=== PATIENT | female | born 1945 | race Caucasian/White ===

== ENCOUNTER → 2021-03-16 13:54 | Outpatient (CLI) | payer MEDICARE, SELFPAY ==
--- NOTE | ~2021-03-16 | MM_ITS ---
EXAMINATION: MM screening [facility] BI w marcus HISTORY: Screening TECHNIQUE: Craniocaudal and mediolateral oblique 3-D tomosynthesis images were obtained and synthetic 2-D images were generated. CAD analysis was submitted and interpreted. COMPARISON: The Comparison to multiple prior studies sequentially, with oldest reviewed study dated 07/15/2014. BREAST PARENCHYMAL COMPOSITION: There are scattered areas of fibroglandular density. FINDINGS: There is no evidence of suspicious mass, calcification, or architectural distortion to sugg est malignancy in either breast. There has been no suspicious interval change. IMPRESSION: 1. No mammographic evidence of malignancy. 2. Recommend routine screening mammography in one year. BI-RADS Category 1: Negative Reviewed, dictated and finalized at location A.
== END ==
PROVIDERS: PCP Emergency Medicine; Visit Provider Emergency Medicine
DX: Z12.31 Encounter for screening mammogram for malignant neoplasm of breast (principal)
CPT/HCPCS: 77063; 77067

== ENCOUNTER 2022-02-10 16:23 | Inpatient (IN) | payer MEDICARE, SELFPAY ==
[2022-02-10] VITALS (7 sets, daily range): BP systolic 102–122; BP diastolic 55–65; PULSE 69–98; RESP 14–22; TEMP 36.6–36.8; O2SAT 94–100; BMI 37.5
--- NOTE | ~2022-02-10 | CT_ITS ---
EXAMINATION: CT abdomen pelvis w con DATE: 02/10/2022 19:55 INDICATION: LLQ pain TECHNIQUE: Computed tomography (CT) of the abdomen and pelvis was performed with 100 mL Omnipaque-350 intravenous contrast. Automated exposure control and iterative reconstruction technique were employe d. The dose-length product was 1273.29 mGy-cm. COMPARISON: None. FINDINGS: Lower thorax: Coronary artery calcifications. Small hiatal hernia. Liver: Hepatomegaly Biliary/Gallbladder: Gallbladder is normal. No bile duct dilation. Pancreas: No mass or duct dilation. Spleen: Normal. Adrenals:No mass. Kidneys: No mass, stone, or hydronephrosis. GI tract: No small or large bowel dilation. Dilated, discontiguous, inflamed appendix with a surround ing fluid and gas collection measuring 4.7 x 3.4 cm, and contiguous with a much larger pelvic abscess . Diverticulosis without diverticulitis. Mesentery/Peritoneum: No ascites, mass, or free air. Retroperitoneum: No mass. Pelvis: Uterus not visualized, likely surgically absent. 14.1 x 9.3 x 10.9 cm irregular, rim-enhancin g fluid and gas collection in the deep pelvis, in the region of the pouch of Hugh, extending anter iorly, superior to the bladder. Bladder wall thickening and inflammation, likely reactive. The pelvic collection is in communication with the periappendiceal collection. Soft Tissues: Soft tissues and body wall unremarkable. Bones: No acute osseous finding. IMPRESSION: Acute complicated appendicitis with evidence of rupture, a 4.7 cm periappendiceal abscess, and extens ion into a 14.1 cm pelvic abscess. These collections may be amenable to percutaneous drainage. Reviewed, dictated and finalized at location K. IMPRESSION: Acute complicated appendicitis with evidence of rupture, a 4.7 cm periappendice al abscess, and extension into a 14.1 cm pelvic abscess. These collections may be amenable to percutaneous drainage.
--- NOTE | ~2022-02-10 | CT_ITS ---
EXAMINATION: CT guide absc cath placement DATE: 02/11/2022 13:36 INDICATION: Pelvic abscess. TECHNIQUE: The procedure including the risks, benefits, and alternatives was discussed with the patie nt. Risks discussed included bleeding and infection. The patient understood the risks and benefits an d agreed to proceed. The skin overlying the abdomen was prepped and draped in usual sterile fashion. Anesthetic was administered with 1% lidocaine subcutaneously. An 18 gauge trochar needle was inserte d into the pelvic abscess with CT guidance. The needle was exchanged over a wire for 6 Kosovan, 8 Fren ch, and 9 Kosovan dilators and then for an 8.5 Kosovan pigtail catheter. The catheter was stitched to t he skin, and a sterile dressing was applied. The mA was adjusted according to patient size. Iterative reconstruction technique was employed. The dose-length product was 199.36 mGy-cm. There were no imme diate complications. FINDINGS: CT images demonstrate the catheter within the fluid collection. 8 mL fluid was aspirated fo r testing. IMPRESSION: 1. Successful CT-guided pelvic abscess drainage. 2. 8 mL opaque, green-charles fluid was sent for aerobic and anaerobic cultures. Reviewed, dictated and finalized at location A.
--- NOTE | ~2022-02-10 | US_ITS ---
EXAMINATION: US renal BI DATE: 02/11/2022 10:56 INDICATION: Acute renal insufficiency TECHNIQUE: Multiple ultrasound grayscale images of the kidneys were obtained. COMPARISON: None. FINDINGS: The right kidney measures 11.0 x 4.2 x 6.1 cm. The left kidney measures 11.1 x 6.1 x 5.4 cm. The kidn eys demonstrate normal echogenicity. There is no hydronephrosis in either kidney. No stones identifi ed. The bladder is decompressed around a Hernandez catheter which limits evaluation.. IMPRESSION: 1. Normal kidneys without hydronephrosis. Reviewed, dictated and finalized at location A.
--- NOTE | 2022-02-10 16:31 | ECG_ITS ---
Measurements Intervals [place] Rate: 90 P: 56 MO: 144 QRS: 14 QRSD: 98 T: 39 QT: 390 QTc: 478 Interpretive Statements SINUS RHYTHM CONSIDER INFERIOR INFARCT, AGE INDETERMINATE BASELINE ARTIFACT- I, II, III, AVR, AVL, AVF, V5 ABNORMAL ECG NO PREVIOUS ECG AVAILABLE FOR COMPARISON Electronically Signed On 02-11-2022 7:01:38 CDT by Bertrand Hudson D.O.
[2022-02-10 16:39] LABS: Glucose Point of Care 156 mg/dl (65-105)
[2022-02-10 16:49] LABS: Basophils Absolute Auto 0.2 K/mm3 (0.0-0.1); Basophils Percent Auto 0.5 % (0.2-1.2); Eosinophils Percent Auto 0.1 % (0-4.4); Hematocrit 35.1 % (37.0-47.0); Hemoglobin 12.1 g/dL (12.0-15.0); Immature Granulocyte Absolute 0.65 K/mm3 (0.00-0.031); Immature Granulocyte Percent A 1.8 % (0-0.5); Lymphocytes Absolute Auto 1.66 K/mm3 (0.9-3.2); Lymphocytes Percent Auto 4.5 % (18.3-44.2); Mean Corpuscular HGB Conc 34.5 g/dl (32-36); Mean Corpuscular Hemoglobin 30.7 pg (26-34); Mean Corpuscular Volume 89.1 fl (80-100); Mean Platelet Volume 9.1 fl (7.4-10.4); Monocytes Absolute Auto 1.9 K/mm3 (0.1-0.6); Monocytes Percent Auto 5.2 % (2.6-8.5); Neutrophils Absolute Auto 32.5 K/mm3 (1.3-6.7); Neutrophils Percent Auto 87.9 % (45.5-73.1); Platelet Count Result 464 k/mm3 (150-375); Red Blood Count 3.94 M/mm3 (4.2-5.4); Red Cell Distribution Width 13.8 % (11.5-14.5); White Blood Count 36.9 K/mm3 (4.5-10.0)
[2022-02-10 17:30] LABS: Alanine Aminotransferase 53 U/L (6-35); Albumin Level 3.5 g/dL (3.5-5.1); Alkaline Phosphatase 160 U/L (38-126); Anion Gap 15 mmol/L (8-16); Aspartate Amino Transferase 44 U/L (14-36); Bilirubin,Total 0.8 mg/dL (0.2-1.3); Blood Urea Nitrogen 22 mg/dL (7-17); Calcium 8.5 mg/dL (8.4-10.2); Carbon Dioxide 24 mmol/L (22-30); Chloride 89 mmol/L (98-107); Estimated CRCL calculation 37 ml/min; Estimated Glomerular Filt Rate 37; Glucose 164 mg/dL (65-110); Lipase 117 U/L (23-300); Potassium 2.3 mmol/L (3.4-5.0); Sodium 128 mmol/L (137-145)
[2022-02-10] MEDS: SODIUM CHLORIDE 0.9% IV 1,000 ML 999 ML IV CONT (18:38)
[2022-02-10] MEDS: ONDANSETRON INJ 4 MG/2 ML VIAL IV PUSH (18:40)
[2022-02-10] MEDS: POTASSIUM CHLORIDE INJ 40 MEQ in SODIUM CHLORIDE 0.9% IV 500 ML 130 MEQ IVPB (18:47)
[2022-02-10 18:57] LABS: Appearance Urine Clear (Clear); Bilirubin Urine 1+ (Negative); Blood Urine Negative (Negative); Color Urine Yellow (Yellow); Glucose Urine UA Negative (Negative); Ketones Urine Negative (Negative); Leukocyte Esterase Ur Negative LEU/UL (Negative); Nitrate Urine Negative (Negative); Protein Urine 1+ mg/dL (Negative); pH Urine 5.5 (5.0-9.0)
[2022-02-10 19:02] LABS: Add Urine Microscopic? YES; RBC Urine 0-2 /hpf (0-2); Squamous Epithelial Cell Urine Occasional /hpf (Few)
--- NOTE | 2022-02-10 19:19 | ED.GENADULT ---
HPI - General Adult General Chief complaint: Unspecified Stated complaint: sick for 10 day Time Seen by Provider: 02/10/22 17:44 History of Present Illness HPI narrative: Patient is a 76-year-old female who presents ER with reports of feeling sick over the last 10 days. She has been having diarrhea daily and small volumes multiple times. She is also been having vomiting and most recently just dry heaving. She has not been able to eat anything over the last 10 days until today where she is able to keep down a small amount of food. She is reporting left lower quadrant pain. Subjective fevers and chills. No alleviating factors. Related Data Home Medications Medication Instructions Recorded Confirmed aspirin 81 mg tablet 81 mg PO DAILY 04/22/19 11/02/21 Allergies Allergy/AdvReac Type Severity Reaction Status Date / Time Penicillins Allergy Unknown Rash Verified 09/25/21 11:32 Review of Systems Review of Systems: All systems reviewed & are unremarkable except as noted in HPI and below Constitutional: Constitutional: Reports chills and Reports fatigue Cardiovascular: Cardiovascular: Denies chest pain, Denies radiating jaw, neck or arm pain and Denies palpitations Respiratory: Respiratory: Denies cough, Denies dyspnea and Denies wheezing Gastrointestinal: Gastrointestinal: Reports abdominal pain, Reports diarrhea, Reports nausea, Reports vomiting and Denies hematemesis Genitourinary: Genitourinary: Denies nocturia, Denies dysuria and Denies flank pain PMFSH Past Medical History Medical History GERD (gastroesophageal reflux disease) Gout HLD (hyperlipidemia) Vitamin D deficiency disease Surgical History Surgical History History of bladder surgery History of vein stripping Tie Up Family History Family History Mother Family history of malignant neoplasm, Onset Age: 62 Father Carcinoma of colon Social History Social History Smoking status: Current every day smoker Alcohol intake: current Exam Narrative: GENERAL: Uncomfortable-appearing, well-nourished, and in no acute distress. HEAD: Normocephalic, atraumatic. ENT: Mucous membranes moist. CHEST: Clear to auscultation. No respiratory distress. HEART: Regular rate and rhythm. Normal peripheral pulses. ABDOMEN: Soft, TTP BLQ with guarding, nondistended. EXTREMITIES: Normal range of motion. No edema. SKIN: Warm, dry, no rash. NEURO: Alert and oriented x3. PSYCH: Normal mood and affect. Course Course Emergency Course: Patient informed of results. Dr. Jones consulted. Recommends Levaquin and Flagyl as well as admission to ICU. Discussed case with Dr. Wong who is excepted the patient. Patient also accepted by hospitalist service. Vital Signs Vital signs: Vital Signs Temperature 98.1 F 02/10/22 16:25 Pulse Rate 98 02/10/22 16:25 Respiratory Rate 14 02/10/22 16:25 Blood Pressure 102/56 L 02/10/22 16:25 Pulse Oximetry 99 02/10/22 16:25 Oxygen Delivery Room Air 02/10/22 16:25 Temperature 98.2 F 02/10/22 21:42 Pulse Rate 77 02/10/22 21:42 Respiratory Rate 22 H 02/10/22 21:42 Blood Pressure 120/56 L 02/10/22 21:42 Pulse Oximetry 100 02/10/22 21:42 Oxygen Delivery Room Air 02/10/22 16:25 Medical Decision Making Vital Signs Vital Signs: Vital Signs Temperature 98.1 F 02/10/22 16:25 Pulse Rate 98 02/10/22 16:25 Respiratory Rate 14 02/10/22 16:25 Blood Pressure 102/56 L 02/10/22 16:25 Pulse Oximetry 99 02/10/22 16:25 Oxygen Delivery Room Air 02/10/22 16:25 Temperature 98.2 F 02/10/22 21:42 Pulse Rate 77 02/10/22 21:42 Respiratory Rate 22 H 02/10/22 21:42 Blood Pressure 120/56 L 02/10/22 21:42 Pulse Oximetry
--- NOTE | 2022-02-10 19:53 | PC.NURSE ---
Report received from PRESLEY Gold. Assumed care of patient at this time.
[2022-02-10 19:55] LABS: Lactic Acid Reflex 1.4 mmol/L (0.7-2.0)
--- NOTE | 2022-02-10 21:12 | PM.IMHP ---
H&P: HPI History of Present Illness Date/Time: 02/10/22 21:12 Chief Complaint: nausea and vomiting Narrative: This is a 76-year-old female with past medical history significant for gastroesophageal reflux disease, gout, dyslipidemia, asthma. Patient presents to the emergency room was brought by her daughter due to several days of nausea vomiting abdominal pain unable to keep anything down had some diarrhea as well had subjective fevers, chills, altered mental status, drowsiness, lethargy, denies any cough, sputum production, shortness of breath. preliminary workup was significant for: CT abdomen and pelvis was reported as: IMPRESSION: Acute complicated appendicitis with evidence of rupture, a 4.7 cm periappendiceal abscess, and extension into a 14.1 cm pelvic abscess. These collections may be amenable to percutaneous drainage. a CBC showed WBC 36,000 a chemistry panel showed a sodium of 128, potassium 2.3, chloride 89, creatinine 1.4 Review of Systems Review of Systems: abdominal pain, nausea, vomiting, intermittent diarrhea, drowsiness, fatigue, subjective fevers, chills. Constitutional: Constitutional: Reports chills, Reports fever(s), Reports lethargy, Reports malaise and Reports poor appetite Eyes: Eyes: Denies change in vision ENT: Denies dysphagia, Denies vertigo and Denies odynophagia Cardiovascular: Cardiovascular: Denies chest pain, Denies irregular heart rhythm, Denies lightheadedness, Denies palpitations and Denies dyspnea on exertion Respiratory: Respiratory: Denies change in phlegm color, Denies chest congestion, Denies cough, Denies excessive phlegm production and Denies dyspnea Gastrointestinal: Gastrointestinal: Reports abdominal pain, Denies melena, Denies hematochezia, Denies coffee ground emesis, Denies dyspepsia, Denies heartburn, Reports diarrhea, Reports nausea, Reports vomiting and Denies hematemesis Genitourinary: Genitourinary: Denies dysuria Musculoskeletal: Musculoskeletal: Denies myalgias, Denies joint swelling, Denies limited range of motion, Denies muscle weakness and Denies neck pain Integumentary/Breasts: Skin/Breast: Denies rash Neurologic: Denies vertigo, Denies dizziness, Denies focal weakness and Denies Sensory deficit (Neuro) Psychiatric: Psychiatric: Reports no additional psychiatric complaints and Reports as per HPI Endocrine: Endocrine: Denies cold intolerance, Denies flushing, Denies heat intolerance, Denies polyphagia, Denies polydipsia and Denies palpitations Hematologic/Lymphatic: Hematologic/Lymphatic: Reports no additional hematologic/lymphatic complaints and Reports as per HPI Allergic/Immunologic: Allergic/Immunologic: Reports no additional allergic/immunologic complaints and Reports as per HPI PMFSH Past Medical History Medical History GERD (gastroesophageal reflux disease) Gout HLD (hyperlipidemia) Vitamin D deficiency disease Surgical History Surgical History History of bladder surgery History of vein stripping Tie Up Family History Family History Mother Family history of malignant neoplasm, Onset Age: 62 Father Carcinoma of colon Social History Social History Smoking packs per day: 0.5 Smoking cigarettes per day: 10.0 Years smoked: 50 Smoking pack-years: 25.00 Smoking status: Former smoker Tobacco type: cigarettes Alcohol intake: current Drinks per week: 2 Substance use: never Spiritual care concerns: No Meds Home Medications and Allergies Home Medications Medication Instructions Recorded Confirmed Type aspirin 81 mg tablet 81 mg PO DAILY 04/22/19 02/10/22 History diclofenac sodium 75 mg 75 mg PO BID #60 tabs 06/25/21 02/10/22 Rx tablet,delayed release lisino
[2022-02-10] MEDS: metroNIDAZOLE 500 MG/ISO 100ML 500 MG/100 ML BAG 100 MG IVPB (23:13)
[2022-02-11] VITALS (12 sets, daily range): BP systolic 98–140; BP diastolic 44–69; PULSE 78–99; RESP 14–26; TEMP 36.6–37.2; O2SAT 98–100
--- NOTE | 2022-02-11 00:04 | PC.NURSE ---
This patient, Gogo Dickens, was admitted to Intensive Care Unit-8 at 2205 02/10/22. Patient/family oriented to hospital policies and general routines including ID bracelet, bed and alarms, visiting hours, pain management, procedures, bathroom and other care routines, personal items, smoking policy, room service/diet, and visiting hours. Information on how to activate the Rapid Response Team has been discussed. Patient/Family are encouraged to report perceived risks to care and to ask questions if they do not understand what they are told or what they should do.
[2022-02-11] MEDS: AZTREONAM 2 GM in SODIUM CHLORIDE 0.9% IV 100 ML 200 ML IVPB ×3 (04:00→20:24)
[2022-02-11 05:15] LABS: Basophils Absolute Auto 0.1 K/mm3 (0.0-0.1); Basophils Percent Auto 0.4 % (0.2-1.2); Eosinophils Percent Auto 0.1 % (0-4.4); Hemoglobin 9.1 g/dL (12.0-15.0); Immature Granulocyte Absolute 0.56 K/mm3 (0.00-0.031); Immature Granulocyte Percent A 2.2 % (0-0.5); Lymphocytes Absolute Auto 1.19 K/mm3 (0.9-3.2); Lymphocytes Percent Auto 4.7 % (18.3-44.2); Mean Corpuscular HGB Conc 33.7 g/dl (32-36); Mean Corpuscular Hemoglobin 30.8 pg (26-34); Mean Corpuscular Volume 91.5 fl (80-100); Mean Platelet Volume 9.4 fl (7.4-10.4); Monocytes Absolute Auto 1.5 K/mm3 (0.1-0.6); Monocytes Percent Auto 5.8 % (2.6-8.5); Neutrophils Absolute Auto 21.8 K/mm3 (1.3-6.7); Neutrophils Percent Auto 86.8 % (45.5-73.1); Platelet Count Result 308 k/mm3 (150-375); Red Blood Count 2.95 M/mm3 (4.2-5.4); White Blood Count 25.1 K/mm3 (4.5-10.0)
[2022-02-11 05:31] LABS: Anion Gap 9 mmol/L (8-16); Blood Urea Nitrogen 21 mg/dL (7-17); Calcium 6.8 mg/dL (8.4-10.2); Carbon Dioxide 22 mmol/L (22-30); Chloride 99 mmol/L (98-107); Estimated CRCL calculation 47 ml/min; Estimated Glomerular Filt Rate 49; Glucose 104 mg/dL (65-110); Potassium 2.5 mmol/L (3.4-5.0); Sodium 130 mmol/L (137-145)
[2022-02-11] MEDS: POTASSIUM CHLORIDE INJ 40 MEQ in SODIUM CHLORIDE 0.9% IV 500 ML 130 MEQ IVPB (06:53)
[2022-02-11] MEDS: POTASSIUM CHLORIDE 20 MEQ PACKET (FOR LIQUID) 40 MEQ PO (08:59)
--- NOTE | 2022-02-11 09:34 | WPDCNINT ---
Assessment and Plan Assessment and plan (1) Sepsis: Code(s): A41.9 - Sepsis, unspecified organism Status: Acute Assessment and Plan: secondary to acute complicated appendicitis with rupture and pelvic abscess blood culture sent and are pending patient is on aztreonam and I will add metronidazole to cover for anaerobic coverage general surgery has been consulted and they have requested percutaneous drainage of abscess at this time for which patient is scheduled her lactic acid was normal and she has not required any vasopressors at this time (2) Acute appendicitis with perforation, localized peritonitis, and abscess: Code(s): K35.33 - Acute appendicitis with perforation and localized peritonitis, with abscess Status: Acute Assessment and Plan: see above (3) Acute appendicitis with rupture: Code(s): K35.32 - Acute appendicitis with perforation and localized peritonitis, without abscess Status: Deleted Assessment and Plan: see above (4) FERNANDA (acute kidney injury): Code(s): N17.9 - Acute kidney failure, unspecified Status: Acute Assessment and Plan: likely secondary to sepsis and dehydration patient has received IV fluid bolus and is on IV fluids creatinine is improving and is down to 1.1 today check CK level check UA urine electrolytes CT scan does not show any obstruction or hydronephrosis monitor urine output electrolytes and creatinine (5) Acute hypokalemia: Code(s): E87.6 - Hypokalemia Status: Acute Assessment and Plan: patient is receiving replacement at this time. will repeat BMP post placement to check levels (6) GERD (gastroesophageal reflux disease): Qualifiers: Esophagitis presence: without esophagitis Qualified Code(s): K21.9 - Gastro-esophageal reflux disease without esophagitis Code(s): K21.9 - Gastro-esophageal reflux disease without esophagitis Status: Acute Assessment and Plan: continue PPI Plan DVT prophylaxis - will start Lovenox from tomorrow as patient is going for a drain placement Nutrition - NPO except meds Code Status - Full Code Spoke to patient and patient's at bedside and updated them with current status and current treatment plan. I answered all their questions. 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 Patient states the symptoms started around 1 week ago when she started having nausea followed by vomiting. She did not see any blood in her vomitus. 1-2 days later she started having abdominal pain mostly in the lower abdomen. She states pain was 10/10 dull intermittent with no radiation. Pain felt worse with movement. She initially noted stop thinking that it was a UTI. She also started having diarrhea with loose bowel movements. No melena or hematochezia. She had fevers and chills. Patient presented to ER and was diagnosed with sepsis FERNANDA and on CT scan was found to be having a perforated appendix with abscess. Patient was admitted to ICU and started on IV antibiotics, fluids and general surgery was consulted. Patient at this time states that her pain is better and is rated at 3/10, dull, no radiation, worse with deep breathing and movement. Review of systems is also positive for dry mouth, heartburn. All other systems were reviewed and were negative Review of Systems Review of Systems: All systems reviewed & are unremarkable except as noted in HPI and below ( HPI) PMFSH Past Medical History Medical History GERD (gastroesophageal reflux disease) Gout History of TIA (transient ischemic attack) x 2 HLD (hyperlipidemia) Overactive bladder Vitamin D deficiency disease
[2022-02-11] MEDS: LIDOCAINE HCL 1% PF INJ 5 ML VIAL INFILTRATE (09:45)
[2022-02-11] MEDS: CALCIUM GLUC 2,000 MG/NS 100ML 2,000 MG/100 ML BAG 100 MG IVPB (11:03)
[2022-02-11] MEDS: metroNIDAZOLE 500 MG/ISO 100ML 500 MG/100 ML BAG 100 MG IVPB ×3 (11:04→20:24)
[2022-02-11 11:11] LABS: Creatine Kinase 38 U/L (30-135)
--- NOTE | 2022-02-11 11:14 | PM.CNGS ---
Assessment and Plan Assessment and plan (1) Acute appendicitis with perforation, localized peritonitis, and abscess: Code(s): K35.33 - Acute appendicitis with perforation and localized peritonitis, with abscess Status: Acute Assessment and Plan: CT scan reviewed and discussed with the patient and her in detail. There is evidence of appendicitis with perforation and there is a periappendiceal abscess and larger pelvic abscess. These fluid collections appear to be communicating and amenable to percutaneous drainage. Continue IV antibiotics and will order percutaneous drainage of the abscess in Radiology today. Will add coags to her morning labs. (2) Sepsis: Code(s): A41.9 - Sepsis, unspecified organism Status: Acute Assessment and Plan: Secondary to perforated appendicitis with intra-abdominal abscess. Blood cultures pending. Lactic acid normal. BP has been stable thus far without vasopressors. Proceed with IR percutaneous drainage of abscess. Continue broad-spectrum IV antibiotics, IV fluid resuscitation, and monitoring. WBC trending down this morning. (3) FERNANDA (acute kidney injury): Code(s): N17.9 - Acute kidney failure, unspecified Status: Acute Assessment and Plan: Likely multifactorial related to dehydration and sepsis. CK normal. Continue IV fluid hydration, monitor labs. Creatinine improved today to 1.1 (4) Acute hypokalemia: Code(s): E87.6 - Hypokalemia Status: Acute Assessment and Plan: Potassium 2.5 this morning. Replacement with oral and IV KCL this morning. Continue to monitor labs and replace as needed. Currently on telemtry in ICU. (5) Acute hyponatremia: Code(s): E87.1 - Hypo-osmolality and hyponatremia Status: Acute Assessment and Plan: Continue IV fluids. Monitor labs. (6) Obesity (BMI 30-39.9): Code(s): E66.9 - Obesity, unspecified Status: Acute Plan I have discussed the patient's case and plan of care with Dr. Post. Thank you for allowing us to see the patient in consultation and we will continue to follow along with you. History of Present Illness Consult details Consult date: 02/11/22 Reason for consult: other (Perforated appendicitis with pelvic and periappendiceal abscess) Requesting physician: Clifton Post MD Narrative: This is a 76-year-old who presented to the ER with complaints of lower abdominal pain, vomiting, and generalized weakness. She reports an onset nausea, vomiting, and lower abdominal pain about 10-11 days ago. She cannot recall if she noticed abdominal pain prior to vomiting, but attributed her lower abdominal pain to muscle soreness from retching. She overall felt unwell and was unable to keep any food or liquids down for a few days. She developed chills and a fever. Her reports a temperature of a 101? F at home off and on for about 3 days. At first, she thought she may have COVID and took a test, which was negative. She continued to have abdominal pain, but felt this was slowly improving. Her abdominal pain was located across the lower abdomen and was aggravated with sitting up or any movement. Last week, she had a poor appetite and still was not taking in any solid foods, but was able to tolerate liquids. She felt like she was improving daily. Until, the last 3 days she had progressive generalized weakness and continued to not tolerate any foods. Yesterday, she slept most of the day in either the recliner or her bed. No recent fevers. She reports lots of flatus and multiple loose stools over the past few days, but attributed this to eating a liquid diet for almost a week. Due to the progressive weakness and persistent symptoms, she presented to the ER. CT scan of the abdomen and pelvis showed acute complicated appendicitis with evidence of rupture, a 4.7 cm periappendiceal abscess, and extension into a 14.1 cm pelvic abscess. Labs showed a white blood cell count of
[2022-02-11 11:25] LABS: INR 1.4; Partial Thromboplastin Time 28.3 SECONDS (22.3-36.8); Prothrombin Time 16.8 Seconds (11.1-14.7)
[2022-02-11] MEDS: PANTOPRAZOLE SODIUM IV 40 MG VIAL IV PUSH (12:12)
[2022-02-11 12:39] LABS: Sodium Urine Random 53 meq/L
--- NOTE | 2022-02-11 13:31 | PC.NURSE ---
Patient left floor with staff to CT. Alert and oriented x 4. Resp even and non-labored.
[2022-02-11] MEDS: CENTRAL LINE FLUSH 10 ML IV PUSH ×2 (13:55→20:25)
[2022-02-11] MEDS: ENOXAPARIN 40 MG/0.4 ML SYRINGE SUB-Q (14:30)
[2022-02-11 14:39] LABS: Anion Gap 11 mmol/L (8-16); Blood Urea Nitrogen 17 mg/dL (7-17); Calcium 7.8 mg/dL (8.4-10.2); Carbon Dioxide 21 mmol/L (22-30); Chloride 102 mmol/L (98-107); Estimated CRCL calculation 52 ml/min; Estimated Glomerular Filt Rate 54; Glucose 103 mg/dL (65-110); Potassium 3.2 mmol/L (3.4-5.0); Sodium 134 mmol/L (137-145)
[2022-02-11 15:03] LABS: Toxigenic C. Diff NEGATIVE (NEGATIVE)
[2022-02-11] MEDS: KCL 40 MEQ/WATER 100 ML 100 ML 25 ML IVPB (15:16)
[2022-02-11] MEDS: KCL 20 MEQ/0.45% NS 1,000 ML 100 ML IV CONT (15:29)
--- NOTE | 2022-02-11 16:54 | PM.IMPN ---
Progress Note: A&P Assessment and Plan (1) Sepsis: Code(s): A41.9 - Sepsis, unspecified organism Status: Acute Assessment and Plan: secondary to acute complicated appendicitis with rupture and pelvic abscess blood culture sent and are pending patient is on aztreonam and Flagyl general surgery has been consulted and they have requested percutaneous drainage of abscess at this time for which patient is scheduled her lactic acid was normal and she has not required any vasopressors at this time (2) Acute appendicitis with perforation, localized peritonitis, and abscess: Code(s): K35.33 - Acute appendicitis with perforation and localized peritonitis, with abscess Status: Acute Assessment and Plan: see above (3) Acute appendicitis with rupture: Code(s): K35.32 - Acute appendicitis with perforation and localized peritonitis, without abscess Status: Deleted Assessment and Plan: see above (4) FERNANDA (acute kidney injury): Code(s): N17.9 - Acute kidney failure, unspecified Status: Acute Assessment and Plan: creatinine 1.4 on admission likely secondary to sepsis and dehydration Improved with IV hydration CT scan does not show any obstruction or hydronephrosis CK normal (5) Acute hypokalemia: Code(s): E87.6 - Hypokalemia Status: Acute Assessment and Plan: patient is receiving replacement at this time. repeat recheck and monitor (6) GERD (gastroesophageal reflux disease): Qualifiers: Esophagitis presence: without esophagitis Qualified Code(s): K21.9 - Gastro-esophageal reflux disease without esophagitis Code(s): K21.9 - Gastro-esophageal reflux disease without esophagitis Status: Acute Assessment and Plan: continue PPI (7) Abscess of pelvis: Status: Acute Plan DVT prophylaxis - Lovenox in a.m. Nutrition - NPO except meds Code Status - Full Code Subjective Date/time seen: 02/11/22 16:54 Interval history: HPI: This is a 76-year-old female with past medical history significant for gastroesophageal reflux disease, gout, dyslipidemia, asthma.? Patient presents to the emergency room was brought by her daughter due to several days of nausea vomiting abdominal pain unable to keep anything down had some diarrhea as well had? subjective fevers, chills,? altered mental status, drowsiness, lethargy,? denies any cough, sputum production, shortness of breath. preliminary workup was significant for: CT abdomen and pelvis was reported as: IMPRESSION: Acute complicated appendicitis with evidence of rupture, a 4.7 cm periappendiceal abscess, and extension into a 14.1 cm pelvic abscess. These collections may be amenable to percutaneous drainage. ?a CBC showed WBC 36,000 ?a chemistry panel showed a sodium of 128, potassium 2.3, chloride 89, creatinine 1.4 02/11/2022 received her drained this afternoon. Abdomen is sore no nausea vomiting remains afebrile Review of Systems Review of Systems: All systems reviewed & are unremarkable except as noted in HPI and below ( HPI) Exam Narrative: General: Pt is alert awake and in NAD Lungs/Chest: Trachea central Clear BS B/L, No crackles or wheezing. Cardiac: RRR. Normal S1 S2. No murmurs Circulation: Pedal pulses are intact and symmetrical. Abdomen: Normal bowel sounds. Obese, abdomen is soft, mildly tender. Drain in place and draining foul-smelling greenish drainage in the bag Extremities: No clubbing, cyanosis or edema. Warm : Hernandez in place Neurologic: Follows commands. Moves all 4 extremities PERRL Skin: No Rash Objective Data Vital Signs Vital Signs: Vital Signs - 24 hr 02/10/22 18:35 02/10/22 18:36 02/10/22 19:04 Temperature Pulse Rate 77 77 77 Respiratory Rate 20 18 Blood Pressure 122/57 L Pulse Oximetry 94 100 Oxygen Delivery 02/10/22 20:14 02/10/22 21:42 02/10/22 22:14 Temperature 98.2 F 97.
[2022-02-11 21:30] LABS: Anion Gap 11 mmol/L (8-16); Blood Urea Nitrogen 15 mg/dL (7-17); Calcium 7.1 mg/dL (8.4-10.2); Carbon Dioxide 21 mmol/L (22-30); Chloride 102 mmol/L (98-107); Estimated CRCL calculation 52 ml/min; Estimated Glomerular Filt Rate 54; Glucose 131 mg/dL (65-110); Potassium 5.2 mmol/L (3.4-5.0); Sodium 134 mmol/L (137-145)
[2022-02-11] MEDS: DEXTROSE 5%/0.45% SOD CHL 1,000 ML 75 ML IV CONT (23:22)
[2022-02-12] VITALS (9 sets, daily range): BP systolic 108–148; BP diastolic 45–64; PULSE 70–100; RESP 16–18; TEMP 36.1–36.9; O2SAT 96–98
[2022-02-12] MEDS: metroNIDAZOLE 500 MG/ISO 100ML 500 MG/100 ML BAG 100 MG IVPB ×4 (02:58→20:42)
[2022-02-12] MEDS: CENTRAL LINE FLUSH 10 ML IV PUSH ×2 (04:17→20:46)
[2022-02-12] MEDS: AZTREONAM 2 GM in SODIUM CHLORIDE 0.9% IV 100 ML 200 ML IVPB ×3 (04:17→20:45)
[2022-02-12 06:03] LABS: Basophils Absolute Auto 0.1 K/mm3 (0.0-0.1); Basophils Percent Auto 0.4 % (0.2-1.2); Eosinophils Absolute Auto 0.1 K/mm3 (0-0.3); Eosinophils Percent Auto 0.4 % (0-4.4); Hematocrit 27.4 % (37.0-47.0); Hemoglobin 9.2 g/dL (12.0-15.0); Immature Granulocyte Absolute 0.33 K/mm3 (0.00-0.031); Immature Granulocyte Percent A 1.8 % (0-0.5); Lymphocytes Absolute Auto 1.84 K/mm3 (0.9-3.2); Lymphocytes Percent Auto 10.2 % (18.3-44.2); Mean Corpuscular HGB Conc 33.6 g/dl (32-36); Mean Corpuscular Hemoglobin 31.3 pg (26-34); Mean Corpuscular Volume 93.2 fl (80-100); Mean Platelet Volume 9.3 fl (7.4-10.4); Monocytes Absolute Auto 0.8 K/mm3 (0.1-0.6); Monocytes Percent Auto 4.3 % (2.6-8.5); Neutrophils Absolute Auto 14.9 K/mm3 (1.3-6.7); Neutrophils Percent Auto 82.9 % (45.5-73.1); Platelet Count Result 343 k/mm3 (150-375); Red Blood Count 2.94 M/mm3 (4.2-5.4); Red Cell Distribution Width 14.6 % (11.5-14.5)
[2022-02-12 06:16] LABS: Anion Gap 6 mmol/L (8-16); Blood Urea Nitrogen 13 mg/dL (7-17); Calcium 7.4 mg/dL (8.4-10.2); Carbon Dioxide 23 mmol/L (22-30); Chloride 101 mmol/L (98-107); Estimated CRCL calculation 59 ml/min; Estimated Glomerular Filt Rate > 60; Glucose 107 mg/dL (65-110); Potassium 3.7 mmol/L (3.4-5.0); Sodium 130 mmol/L (137-145)
[2022-02-12] MEDS: ENOXAPARIN 40 MG/0.4 ML SYRINGE SUB-Q (10:01)
[2022-02-12] MEDS: PANTOPRAZOLE SODIUM IV 40 MG VIAL IV PUSH (12:24)
[2022-02-12] MEDS: DEXTROSE 5%/0.45% SOD CHL 1,000 ML 75 ML IV CONT (14:00)
--- NOTE | 2022-02-12 14:27 | PM.PNGS ---
Progress Note: A&P Assessment and Plan (1) Acute appendicitis with perforation, localized peritonitis, and abscess: Code(s): K35.33 - Acute appendicitis with perforation and localized peritonitis, with abscess Status: Acute Assessment and Plan: Improving following percutaneous drainage of pelvic abscess. Cultures pending. WBC trending down. Continue IV antibiotics. Monitor perc drain. Will keep gallo catheter in place today. Advance to low fat diet. Repeat labs tomorrow. (2) Sepsis: Code(s): A41.9 - Sepsis, unspecified organism Status: Acute Assessment and Plan: S/p source control with percutaneous drainage of abscess in Radiology. Abscess cultures pending. Blood cultures NGTD. Continue broad-spectrum IV antibiotics. Transferred out of ICU to med/tele. Trend labs. (3) FERNANDA (acute kidney injury): Code(s): N17.9 - Acute kidney failure, unspecified Status: Acute Assessment and Plan: Likely multifactorial related to dehydration and sepsis. Improved with medical management, creatinine normal today. (4) Acute hypokalemia: Code(s): E87.6 - Hypokalemia Status: Acute Assessment and Plan: Potassium 3.7 this morning. Monitor labs, replace as needed. (5) Obesity (BMI 30-39.9): Code(s): E66.9 - Obesity, unspecified Status: Acute Plan I have discussed the patient's case and plan of care with Dr. Post. Subjective Subjective Date/Time Seen: 02/12/22 14:27 Patient reports: feels better, pain is less, tolerating liquids well, flatus, diarrhea and afebrile Interval history: Patient seen and examined. She is feeling better today overall. Her abdominal pain has improved and she has not required any analgesics today for pain. She complains of 3 episodes of liquid stools with incontinence last night, but has not had this issue today. Review of Systems Review of Systems: All systems reviewed & are unremarkable except as noted in HPI and below Exam Const: General: comfortable and no acute distress Nutritional Appearance: obese Orientation/consciousness: patient oriented x3 GI: Inspection: non-distended and obesity GI Palp: Yes Soft to palpation, Yes Tenderness to palpation present (GI) (across lower abdomen), Yes Guarding due to palpation present (GI) (RLQ) and Yes Other GI palpation findings present (LLQ perc drain with charles, green thick drainage) Auscultation: normal bowel sounds Urinary Catheter: Urinary Catheter: patent and draining and urine clear Neuro: General: moves all extremities Extrem: General: normal to inspection, no calf tenderness and no edema Psych: Mental Status: mental status grossly normal Insight: Good insight present (Psych) Objective Data Vital Signs Vital Signs: Vital Signs - 24 hr 02/11/22 16:00 02/11/22 16:00 02/11/22 20:00 Temperature 98.6 F Pulse Rate 99 99 92 Respiratory Rate 22 H Blood Pressure 140/64 Pulse Oximetry 100 02/11/22 20:00 02/11/22 20:54 02/11/22 23:12 Temperature 98.4 F 98.1 F Pulse Rate 92 91 99 Respiratory Rate 20 20 18 Blood Pressure 123/50 L 98/44 L Pulse Oximetry 99 99 98 02/12/22 00:00 02/12/22 03:39 02/12/22 04:00 Temperature 96.9 F L Pulse Rate 100 89 89 Respiratory Rate 18 Blood Pressure 108/45 L Pulse Oximetry 96 02/12/22 08:00 02/12/22 12:00 Temperature Pulse Rate 91 86 Respiratory Rate Blood Pressure Pulse Oximetry Intake/Output Intake/Output: Intake & Output 02/09/22 02/10/22 02/11/22 02/12/22 23:59 23:59 23:59 23:59 Intake Total 1000 4020 5630 Output Total 2525 1230 Balance 1000 1495 4400 Meds/Results Medications: Active Medications Generic Name Dose Route Start Last Admin Trade Name Freq PRN Reason Stop Dose Admin Albuterol 2 puff 02/11/22 02:58 Albuterol Sulfate (*Sp) Aerosol 1 Puff INHALATION BID PRN shortness of breath or wheezing Enoxaparin Sodium 40 mg 02/11/22 13:10
--- NOTE | 2022-02-12 15:24 | PM.IMPN ---
Progress Note: A&P Assessment and Plan (1) Sepsis: Code(s): A41.9 - Sepsis, unspecified organism Status: Acute Assessment and Plan: secondary to acute complicated appendicitis with rupture and pelvic abscess blood culture sent and are pending patient is on aztreonam Vancomycin and Flagyl general surgery has been consulted status post percutaneous drainage of the abscess 02/11/2022 her lactic acid was normal and she Did not require any vasopressors Leukocytosis improving Will stop fluids for (2) Acute appendicitis with perforation, localized peritonitis, and abscess: Code(s): K35.33 - Acute appendicitis with perforation and localized peritonitis, with abscess Status: Acute Assessment and Plan: see above (3) Acute appendicitis with rupture: Code(s): K35.32 - Acute appendicitis with perforation and localized peritonitis, without abscess Status: Deleted Assessment and Plan: see above (4) FERNANDA (acute kidney injury): Code(s): N17.9 - Acute kidney failure, unspecified Status: Acute Assessment and Plan: creatinine 1.4 on admission likely secondary to sepsis and dehydration Improved with IV hydration CT scan does not show any obstruction or hydronephrosis CK normal (5) Acute hypokalemia: Code(s): E87.6 - Hypokalemia Status: Acute Assessment and Plan: replaced recheck and monitor (6) GERD (gastroesophageal reflux disease): Qualifiers: Esophagitis presence: without esophagitis Qualified Code(s): K21.9 - Gastro-esophageal reflux disease without esophagitis Code(s): K21.9 - Gastro-esophageal reflux disease without esophagitis Status: Acute Assessment and Plan: continue PPI (7) Abscess of pelvis: Status: Acute Plan DVT prophylaxis - Lovenox Nutrition - NPO except meds Code Status - Full Code Subjective Date/time seen: 02/12/22 15:24 Interval history: HPI: This is a 76-year-old female with past medical history significant for gastroesophageal reflux disease, gout, dyslipidemia, asthma.? Patient presents to the emergency room was brought by her daughter due to several days of nausea vomiting abdominal pain unable to keep anything down had some diarrhea as well had? subjective fevers, chills,? altered mental status, drowsiness, lethargy,? denies any cough, sputum production, shortness of breath. preliminary workup was significant for: CT abdomen and pelvis was reported as: IMPRESSION: Acute complicated appendicitis with evidence of rupture, a 4.7 cm periappendiceal abscess, and extension into a 14.1 cm pelvic abscess. These collections may be amenable to percutaneous drainage. ?a CBC showed WBC 36,000 ?a chemistry panel showed a sodium of 128, potassium 2.3, chloride 89, creatinine 1.4 02/11/2022 received her drained this afternoon. Abdomen is sore no nausea vomiting remains afebrile 02/12/2022 no overnight events. Feeling okay. Abdomen is sore. Cultures were reviewed. Having bowel movement. Review of Systems Review of Systems: All systems reviewed & are unremarkable except as noted in HPI and below ( HPI) Exam Narrative: General: Pt is alert awake and in NAD Lungs/Chest: Trachea central Clear BS B/L, No crackles or wheezing. Cardiac: RRR. Normal S1 S2. No murmurs Circulation: Pedal pulses are intact and symmetrical. Abdomen: Normal bowel sounds. Obese, abdomen is soft, mildly tender. Drain in place and draining foul-smelling greenish drainage in the bag Extremities: No clubbing, cyanosis or edema. Warm : Hernandez in place Neurologic: Follows commands. Moves all 4 extremities PERRL Skin: No Rash Objective Data Vital Signs Vital Signs: Vital Signs - 24 hr 02/11/22 16:00 02/11/22 16:00 02/11/22 20:00 Temperature 98.6 F Pulse Rate 99 99 92 Respiratory Rate 22 H Blood Pressure 140/64 Pulse Oximetry 100 02/11/22 20:00
[2022-02-13] VITALS (9 sets, daily range): BP systolic 120–152; BP diastolic 59–71; PULSE 75–111; RESP 15–18; TEMP 36.2–37.3; O2SAT 96–99
[2022-02-13] MEDS: metroNIDAZOLE 500 MG/ISO 100ML 500 MG/100 ML BAG 100 MG IVPB ×4 (03:40→20:13)
[2022-02-13] MEDS: AZTREONAM 2 GM in SODIUM CHLORIDE 0.9% IV 100 ML 200 ML IVPB ×3 (03:42→20:13)
[2022-02-13 06:50] LABS: Basophils Absolute Auto 0.1 K/mm3 (0.0-0.1); Basophils Percent Auto 0.5 % (0.2-1.2); Eosinophils Absolute Auto 0.2 K/mm3 (0-0.3); Eosinophils Percent Auto 1.3 % (0-4.4); Hematocrit 30.1 % (37.0-47.0); Hemoglobin 9.8 g/dL (12.0-15.0); Immature Granulocyte Absolute 0.35 K/mm3 (0.00-0.031); Immature Granulocyte Percent A 3.1 % (0-0.5); Lymphocytes Absolute Auto 1.48 K/mm3 (0.9-3.2); Lymphocytes Percent Auto 13.3 % (18.3-44.2); Mean Corpuscular HGB Conc 32.6 g/dl (32-36); Mean Corpuscular Hemoglobin 30.7 pg (26-34); Mean Corpuscular Volume 94.4 fl (80-100); Mean Platelet Volume 9.1 fl (7.4-10.4); Monocytes Absolute Auto 0.7 K/mm3 (0.1-0.6); Monocytes Percent Auto 5.9 % (2.6-8.5); Neutrophils Absolute Auto 8.4 K/mm3 (1.3-6.7); Neutrophils Percent Auto 75.9 % (45.5-73.1); Platelet Count Result 358 k/mm3 (150-375); Red Blood Count 3.19 M/mm3 (4.2-5.4); Red Cell Distribution Width 14.6 % (11.5-14.5); White Blood Count 11.1 K/mm3 (4.5-10.0)
[2022-02-13 07:01] LABS: Anion Gap 9 mmol/L (8-16); Blood Urea Nitrogen 8 mg/dL (7-17); Calcium 7.1 mg/dL (8.4-10.2); Carbon Dioxide 22 mmol/L (22-30); Chloride 104 mmol/L (98-107); Estimated CRCL calculation 66 ml/min; Estimated Glomerular Filt Rate > 60; Glucose 168 mg/dL (65-110); Potassium 2.8 mmol/L (3.4-5.0); Sodium 135 mmol/L (137-145)
[2022-02-13] MEDS: CENTRAL LINE FLUSH 10 ML IV PUSH ×3 (07:34→20:14)
[2022-02-13] MEDS: ENOXAPARIN 40 MG/0.4 ML SYRINGE SUB-Q (08:30)
[2022-02-13] MEDS: PANTOPRAZOLE SODIUM IV 40 MG VIAL IV PUSH (08:30)
[2022-02-13] MEDS: POTASSIUM CHLORIDE 20 MEQ TABLET 40 MEQ PO (10:27)
--- NOTE | 2022-02-13 11:04 | PM.PNGS ---
Progress Note: A&P Assessment and Plan (1) Acute appendicitis with perforation, localized peritonitis, and abscess: Code(s): K35.33 - Acute appendicitis with perforation and localized peritonitis, with abscess Status: Acute Assessment and Plan: S/p percutaneous drainage of pelvic abscess. Continues to improve. Cultures showing growth of gram negative bacilli. WBC trending down. Continue IV antibiotics. Remove Hernandez catheter today. Encouraged increasing activity and sitting up in chair, PT/OT following. (2) Sepsis: Code(s): A41.9 - Sepsis, unspecified organism Status: Acute Assessment and Plan: S/p source control with percutaneous drainage of abscess in Radiology. Blood cultures NGTD. Continue broad-spectrum IV antibiotics. (3) FERNANDA (acute kidney injury): Code(s): N17.9 - Acute kidney failure, unspecified Status: Acute Assessment and Plan: Resolved. (4) Acute hypokalemia: Code(s): E87.6 - Hypokalemia Status: Acute Assessment and Plan: Potassium dropped to 2.8 this am. Given 40 KCL PO now. Monitor labs, replace as needed. (5) Obesity (BMI 30-39.9): Code(s): E66.9 - Obesity, unspecified Status: Acute Plan I have discussed the patient's case and plan of care with Dr. Post. Subjective Subjective Date/Time Seen: 02/13/22 11:04 Patient reports: no new complaints, feels better, pain is less (minimal lower abdominal pain, not requiring any analgesics), tolerating a regular diet, flatus, bowel movement (loose stools) and afebrile Interval history: Patient seen and examined. Continues to improve daily. Reports sleeping well last night for the first time in a few days. No acute issues overnight. Review of Systems Review of Systems: All systems reviewed & are unremarkable except as noted in HPI and below Exam Const: General: comfortable and no acute distress Orientation/consciousness: patient oriented x3 GI: Inspection: non-distended, obesity and other (perc drain with minimal charles yellow drainage) GI Palp: Yes Soft to palpation, Yes Tenderness to palpation present (GI) (mild TTP in lower abdomen) and No Guarding due to palpation present (GI) Auscultation: normal bowel sounds Extrem: General: no calf tenderness and no edema Psych: Mental Status: mental status grossly normal Insight: Good insight present (Psych) Objective Data Vital Signs Vital Signs: Vital Signs - 24 hr 02/12/22 12:00 02/12/22 14:00 02/12/22 16:00 Temperature 98.2 F Pulse Rate 86 70 89 Respiratory Rate 17 Blood Pressure 140/62 Pulse Oximetry 96 Oxygen Delivery 02/12/22 21:44 02/12/22 20:05 02/12/22 20:05 Temperature 98.4 F Pulse Rate 86 80 86 Respiratory Rate 16 16 Blood Pressure 148/64 H Pulse Oximetry 98 98 Oxygen Delivery Room Air 02/13/22 00:00 02/13/22 04:00 02/13/22 05:32 Temperature 97.2 F L Pulse Rate 86 75 87 Respiratory Rate 16 Blood Pressure 121/59 L Pulse Oximetry 96 Oxygen Delivery Intake/Output Intake/Output: Intake & Output 02/10/22 02/11/22 02/12/22 02/13/22 23:59 23:59 23:59 23:59 Intake Total 1000 4020 6870 1790 Output Total 2525 2600 1280 Balance 1000 1495 4270 510 Meds/Results Medications: Active Medications Generic Name Dose Route Start Last Admin Trade Name Freq PRN Reason Stop Dose Admin Acetaminophen 650 mg 02/12/22 14:44 Acetaminophen 325 Mg Tablet PO Q6H PRN Mild Pain (1-3) or Fever Hydrocodone Bitart/Acetaminophen 1 tab 02/12/22 14:44 Hydrocodone/Acetaminophen (*Crx) 5-325 Mg Tablet PO Q4H PRN Pain Rated 4-6 Albuterol 2 puff 02/11/22 02:58 Albuterol Sulfate (*Sp) Aerosol 1 Puff INHALATION BID PRN shortness of breath or wheezing Alteplase, Recombinant 2 mg 02/13/22 06:32 Alteplase 2 Mg Vial (Cathflo) IV PUSH ONCE PRN Line Occlusion Enoxaparin Sodium 40 mg 02/11/22 13:10 02/13/22 08:30
[2022-02-13] MEDS: ACETAMINOPHEN 325 MG TABLET 650 MG PO (12:31)
--- NOTE | 2022-02-13 17:16 | PM.IMPN ---
Progress Note: A&P Assessment and Plan (1) Sepsis: Code(s): A41.9 - Sepsis, unspecified organism Status: Acute Assessment and Plan: Sepsis secondary to acute complicated appendicitis status post rupture and pelvic abscess with pelvic drain placed February 11, 2022 Cultures pending Continue IV antibiotics Appreciate general surgery consultation Tolerating regular diet (2) Acute appendicitis with perforation, localized peritonitis, and abscess: Code(s): K35.33 - Acute appendicitis with perforation and localized peritonitis, with abscess Status: Acute Assessment and Plan: see above (3) Acute appendicitis with rupture: Code(s): K35.32 - Acute appendicitis with perforation and localized peritonitis, without abscess Status: Deleted Assessment and Plan: see above (4) FERNANDA (acute kidney injury): Code(s): N17.9 - Acute kidney failure, unspecified Status: Acute Assessment and Plan: Resolved (5) Acute hypokalemia: Code(s): E87.6 - Hypokalemia Status: Acute Assessment and Plan: Replete and recheck tomorrow (6) GERD (gastroesophageal reflux disease): Qualifiers: Esophagitis presence: without esophagitis Qualified Code(s): K21.9 - Gastro-esophageal reflux disease without esophagitis Code(s): K21.9 - Gastro-esophageal reflux disease without esophagitis Status: Acute Assessment and Plan: continue PPI (7) Abscess of pelvis: Status: Acute Assessment and Plan: See above, drain in place, appreciate surgical consultation Plan DVT prophylaxis with Lovenox GI prophylaxis with PPI Code status full code Subjective Date/time seen: 02/13/22 17:16 Interval history: Patient is reporting diarrhea since being in the hospital. She also has occasional band like discomfort her diaphragmatic area with deep inspiration. No overnight events noted. No chest pain or shortness of breath. No nausea, vomiting or diarrhea. No fevers or chills. Review of Systems Review of Systems: 12 point review of systems was assessed and was negative except as noted in the HPI Exam Narrative: General: No acute distress, alert and oriented per baseline HEENT: Atraumatic, normocephalic, mucous membranes moist CV: Regular rate and rhythm, S1, S2 Lungs: Clear to auscultation bilaterally, no rales or crackles noted, no wheezes, good air entry Abdomen: Soft, tender to palpation in right and mid lower quadrants, no rebounding or guarding Extremities: Normal to inspection Skin: No rashes noted, no lesions or wounds seen Psych: Euthymic, normal affect Objective Data Vital Signs Vital Signs: Vital Signs - 24 hr 02/12/22 21:44 02/12/22 20:05 02/12/22 20:05 Temperature 98.4 F Pulse Rate 86 80 86 Respiratory Rate 16 16 Blood Pressure 148/64 H Pulse Oximetry 98 98 Oxygen Delivery Room Air 02/13/22 00:00 02/13/22 04:00 02/13/22 05:32 Temperature 97.2 F L Pulse Rate 86 75 87 Respiratory Rate 16 Blood Pressure 121/59 L Pulse Oximetry 96 Oxygen Delivery 02/13/22 13:48 02/13/22 08:00 02/13/22 12:00 Temperature Pulse Rate 111 H 85 Respiratory Rate Blood Pressure Pulse Oximetry Oxygen Delivery Room Air 02/13/22 14:00 02/13/22 16:00 Temperature 97.6 F Pulse Rate 86 84 Respiratory Rate 15 Blood Pressure 120/71 Pulse Oximetry 98 Oxygen Delivery Intake/Output Intake/Output: Intake & Output 02/10/22 02/11/22 02/12/22 02/13/22 23:59 23:59 23:59 23:59 Intake Total 1000 4020 6870 2630 Output Total 2525 2600 2430 Balance 1000 1495 4270 200 Meds/Results Medications: Active Medications Generic Name Dose Route Start Last Admin Trade Name Freq PRN Reason Stop Dose Admin Acetaminophen 650 mg 02/12/22 14:44 02/13/22 12:31 Acetaminophen 325 Mg Tablet PO 650 mg Q6H PRN Administration Mild Pain (1-3) or Fever Hydrocodone Bi
[2022-02-13] MEDS: HYDROcodone/acetaminophen (*CRX) 5-325 MG TABLET 1 TAB PO (21:34)
[2022-02-14] VITALS (8 sets, daily range): BP systolic 127–136; BP diastolic 55–78; PULSE 78–105; RESP 18–20; TEMP 35.7–36.8; O2SAT 100
[2022-02-14] MEDS: metroNIDAZOLE 500 MG/ISO 100ML 500 MG/100 ML BAG 100 MG IVPB ×2 (02:59→10:02)
[2022-02-14 03:42] LABS: Hematocrit 29.6 % (37.0-47.0); Hemoglobin 9.6 g/dL (12.0-15.0); Mean Corpuscular HGB Conc 32.4 g/dl (32-36); Mean Corpuscular Hemoglobin 30.5 pg (26-34); Mean Platelet Volume 9.4 fl (7.4-10.4); Platelet Count Result 398 k/mm3 (150-375); Red Blood Count 3.15 M/mm3 (4.2-5.4); Red Cell Distribution Width 14.9 % (11.5-14.5); White Blood Count 10.2 K/mm3 (4.5-10.0)
[2022-02-14 04:18] LABS: Band Neutrophils Percent 3 % (0-6); Eosinophils Percent Manual 1 % (0-4); Giant Platelets Present; Lymphocytes Absolute Manual 2.24 K/mm3 (1.1-4.5); Monocytes Absolute Manual 0.61 K/mm3 (0.1-0.90); Monocytes Percent Manual 6 % (3-9); Neutrophils Absolute Manual 7.14 K/mm3 (1.7-7.2); Neutrophils Percent Manual 67 % (46-73); Plasma Cells 1; Total Cells Counted 100
[2022-02-14 04:19] LABS: Anisocytosis 1+ (NORMAL); Microcytosis 1+ (NORMAL); Poikilocytosis 1+ (NORMAL)
[2022-02-14 04:20] LABS: Acanthocytes 1+ (NORMAL)
[2022-02-14 04:21] LABS: Atypical Lymphocytes Present; Burr Cells 1+ (NORMAL)
[2022-02-14 04:25] LABS: Vancomycin Trough 7.9 ug/mL (10.0-20.0)
[2022-02-14 04:46] LABS: Anion Gap 10 mmol/L (8-16); Blood Urea Nitrogen 9 mg/dL (7-17); Calcium 6.9 mg/dL (8.4-10.2); Carbon Dioxide 24 mmol/L (22-30); Chloride 103 mmol/L (98-107); Estimated CRCL calculation 74 ml/min; Estimated Glomerular Filt Rate > 60; Glucose 95 mg/dL (65-110); Sodium 137 mmol/L (137-145)
[2022-02-14] MEDS: AZTREONAM 2 GM in SODIUM CHLORIDE 0.9% IV 100 ML 200 ML IVPB ×2 (04:51→11:08)
[2022-02-14] MEDS: PANTOPRAZOLE SODIUM IV 40 MG VIAL IV PUSH (10:00)
[2022-02-14] MEDS: ENOXAPARIN 40 MG/0.4 ML SYRINGE SUB-Q (10:00)
--- NOTE | 2022-02-14 11:28 | PC.NURSE ---
On 02/14/22, the student, Catherine Jacinto, provided care and completed [facility] documentation on this patient. I have reviewed the student's documentation and agree with the findings.
[2022-02-14] MEDS: HYDROcodone/acetaminophen (*CRX) 5-325 MG TABLET 1 TAB PO ×2 (12:12→21:30)
[2022-02-14] MEDS: CENTRAL LINE FLUSH 10 ML IV PUSH ×2 (12:13→22:30)
--- NOTE | 2022-02-14 12:50 | PCOTNOTE ---
Attempted to see patient this pm, however patient declined. Pt reported already completing ADLs this am, and requested to stay in bed at this time.
--- NOTE | 2022-02-14 12:53 | PM.PNGS ---
Progress Note: A&P Assessment and Plan (1) Acute appendicitis with perforation, localized peritonitis, and abscess: Code(s): K35.33 - Acute appendicitis with perforation and localized peritonitis, with abscess Status: Acute Assessment and Plan: Percutaneous drain output decreasing. Continue to monitor. Cultures showing growth of E.Coli. She has been switched from IV antibiotics to oral Levaquin, which is compatible with sensitivities. WBC still coming down. Could consider discharging the patient in the next 1-2 days if she continues to improve. (2) Sepsis: Code(s): A41.9 - Sepsis, unspecified organism Status: Acute Assessment and Plan: Resolving. Blood cx NGTD. Continue antibiotics. (3) FERNANDA (acute kidney injury): Code(s): N17.9 - Acute kidney failure, unspecified Status: Acute Assessment and Plan: Resolved. (4) Acute hypokalemia: Code(s): E87.6 - Hypokalemia Status: Acute Assessment and Plan: Potassium normal this morning. (5) Obesity (BMI 30-39.9): Code(s): E66.9 - Obesity, unspecified Status: Acute Plan I have discussed the patient's case and plan of care with Dr. Post. Subjective Subjective Date/Time Seen: 02/14/22 12:53 Patient reports: no new complaints, pain is less, tolerating a regular diet, voiding w/o difficulty and afebrile Interval history: Patient seen and examined. Continues to feel better daily. Still having loose stools but feels it is less. No issues of incontinence last night. Perc drain output decreasing Review of Systems Review of Systems: All systems reviewed & are unremarkable except as noted in HPI and below Exam Const: General: no acute distress Nutritional Appearance: obese Orientation/consciousness: patient oriented x3 GI: Inspection: non-distended, obesity and other (perc drain with minimal charles yellow drainage) GI Palp: Yes Soft to palpation, Yes Tenderness to palpation present (GI) (lower abdomen) and No Guarding due to palpation present (GI) Auscultation: normal bowel sounds Extrem: General: no calf tenderness and no edema Psych: Mental Status: mental status grossly normal Insight: Good insight present (Psych) Objective Data Vital Signs Vital Signs: Vital Signs - 24 hr 02/13/22 13:48 02/13/22 14:00 02/13/22 16:00 Temperature 97.6 F Pulse Rate 86 84 Respiratory Rate 15 Blood Pressure 120/71 Pulse Oximetry 98 Oxygen Delivery Room Air 02/13/22 21:46 02/13/22 20:00 02/13/22 20:00 Temperature 99.1 F Pulse Rate 82 85 Respiratory Rate 18 Blood Pressure 152/66 H Pulse Oximetry 99 Oxygen Delivery Room Air 02/14/22 00:00 02/14/22 04:00 02/14/22 05:40 Temperature 98.3 F Pulse Rate 80 80 81 Respiratory Rate 18 Blood Pressure 135/55 L Pulse Oximetry 100 Oxygen Delivery 02/14/22 08:00 02/14/22 08:00 02/14/22 12:00 Temperature Pulse Rate 91 105 H Respiratory Rate Blood Pressure Pulse Oximetry Oxygen Delivery Room Air Intake/Output Intake/Output: Intake & Output 02/11/22 02/12/22 02/13/22 02/14/22 23:59 23:59 23:59 23:59 Intake Total 4020 4582 2950 877 Output Total 2525 2600 2430 Balance 1495 4270 520 877 Meds/Results Medications: Active Medications Generic Name Dose Route Start Last Admin Trade Name Freq PRN Reason Stop Dose Admin Acetaminophen 650 mg 02/12/22 14:44 02/13/22 12:31 Acetaminophen 325 Mg Tablet PO 650 mg Q6H PRN Administration Mild Pain (1-3) or Fever Hydrocodone Bitart/Acetaminophen 1 tab 02/12/22 14:44 02/14/22 12:12 Hydrocodone/Acetaminophen (*Crx) 5-325 Mg Tablet PO 1 tab Q4H PRN Administration Pain Rated 4-6 Albuterol 2.5 mg 02/13/22 16:12 Albuterol Sulfate Neb 2.5 Mg/3 Ml Inh INHALATION Q6HRT PRN Shortness Of Breath Alteplase, Recombinant 2 mg 02/13/22 06:32 Alteplase 2 Mg Vial (Cathflo) IV PUSH ONCE PRN
[2022-02-14] MEDS: levoFLOXacin 750 MG TABLET PO (14:43)
--- NOTE | 2022-02-14 16:36 | PM.IMPN ---
Progress Note: A&P Assessment and Plan (1) Sepsis: Code(s): A41.9 - Sepsis, unspecified organism Status: Acute Assessment and Plan: Sepsis secondary to acute complicated appendicitis status post rupture and pelvic abscess with pelvic drain placed February 11, 2022 Abscess culture came back showing pansensitive E coli, IV antibiotics discontinued, started on oral Levaquin, okay to discharge when okay per surgery (2) Acute appendicitis with perforation, localized peritonitis, and abscess: Code(s): K35.33 - Acute appendicitis with perforation and localized peritonitis, with abscess Status: Acute Assessment and Plan: see above (3) Acute appendicitis with rupture: Code(s): K35.32 - Acute appendicitis with perforation and localized peritonitis, without abscess Status: Deleted Assessment and Plan: see above (4) FERNANDA (acute kidney injury): Code(s): N17.9 - Acute kidney failure, unspecified Status: Acute Assessment and Plan: Resolved (5) Acute hypokalemia: Code(s): E87.6 - Hypokalemia Status: Acute Assessment and Plan: Replete and recheck tomorrow (6) GERD (gastroesophageal reflux disease): Qualifiers: Esophagitis presence: without esophagitis Qualified Code(s): K21.9 - Gastro-esophageal reflux disease without esophagitis Code(s): K21.9 - Gastro-esophageal reflux disease without esophagitis Status: Acute Assessment and Plan: continue PPI (7) Abscess of pelvis: Status: Acute Assessment and Plan: See above, drain in place, appreciate surgical consultation Plan DVT prophylaxis with Lovenox GI prophylaxis with PPI Code status full code Subjective Date/time seen: 02/14/22 16:36 Interval history: Patient states she continues to have lower abdominal pain. She denies any dysuria. She also is complaining of dry mouth. No overnight events noted. No chest pain or shortness of breath. No nausea, vomiting or diarrhea. No fevers or chills. Review of Systems Review of Systems: All systems reviewed & are unremarkable except as noted in HPI and below ( HPI) Exam Narrative: General: No acute distress, alert and oriented per baseline HEENT: Atraumatic, normocephalic, mucous membranes moist CV: Regular rate and rhythm, S1, S2 Lungs: Clear to auscultation bilaterally, no rales or crackles noted, no wheezes, good air entry Abdomen: Soft, tender to palpation in right and mid lower quadrants, no rebounding or guarding Extremities: Normal to inspection Skin: No rashes noted, no lesions or wounds seen Psych: Euthymic, normal affect Objective Data Vital Signs Vital Signs: Vital Signs - 24 hr 02/13/22 21:46 02/13/22 20:00 02/13/22 20:00 Temperature 99.1 F Pulse Rate 82 85 Respiratory Rate 18 Blood Pressure 152/66 H Pulse Oximetry 99 Oxygen Delivery Room Air 02/14/22 00:00 02/14/22 04:00 02/14/22 05:40 Temperature 98.3 F Pulse Rate 80 80 81 Respiratory Rate 18 Blood Pressure 135/55 L Pulse Oximetry 100 Oxygen Delivery 02/14/22 08:00 02/14/22 08:00 02/14/22 12:00 Temperature Pulse Rate 91 105 H Respiratory Rate Blood Pressure Pulse Oximetry Oxygen Delivery Room Air 02/14/22 14:00 Temperature 96.2 F L Pulse Rate 78 Respiratory Rate 20 Blood Pressure 136/71 Pulse Oximetry 100 Oxygen Delivery Intake/Output Intake/Output: Intake & Output 02/11/22 02/12/22 02/13/22 02/14/22 23:59 23:59 23:59 23:59 Intake Total 4020 8465 2950 877 Output Total 2522 2600 2430 Balance 1495 4270 520 877 Meds/Results Medications: Active Medications Generic Name Dose Route Start Last Admin Trade Name Freq PRN Reason Stop Dose Admin Acetaminophen 650 mg 02/12/22 14:44 02/13/22 12:31 Acetaminophen 325 Mg Tablet PO 650 mg Q6H PRN Administration Mild Pain (1-3) or Fever Hydrocodone Bitart/Acetaminophen 1
[2022-02-15] MEDS: CENTRAL LINE FLUSH 10 ML IV PUSH (05:45)
[2022-02-15 05:59] LABS: Hematocrit 32.7 % (37.0-47.0); Hemoglobin 10.7 g/dL (12.0-15.0); Mean Corpuscular HGB Conc 32.7 g/dl (32-36); Mean Corpuscular Hemoglobin 30.8 pg (26-34); Mean Corpuscular Volume 94.2 fl (80-100); Mean Platelet Volume 8.9 fl (7.4-10.4); Platelet Count Result 454 k/mm3 (150-375); Red Blood Count 3.47 M/mm3 (4.2-5.4); Red Cell Distribution Width 14.6 % (11.5-14.5); White Blood Count 10.1 K/mm3 (4.5-10.0)
[2022-02-15 06:00] VITALS: BP 152/69; PULSE 80; RESP 20; TEMP 35.5; O2SAT 100
--- NOTE | 2022-02-15 08:21 | PM.PNGS ---
Progress Note: A&P Assessment and Plan (1) Acute appendicitis with perforation, localized peritonitis, and abscess: Code(s): K35.33 - Acute appendicitis with perforation and localized peritonitis, with abscess Status: Acute Assessment and Plan: okay to discharge today from surgical standpoint. Home on oral antibiotics for another 5 days. She may shower at home. I will see her either on this week or Friday next week. She should call for an appointment. Subjective Subjective Date/Time Seen: 02/15/22 08:21 Patient reports: feels better ( wants to go home) Review of Systems Review of Systems: All systems reviewed & are unremarkable except as noted in HPI and below ( HPI) Constitutional: Constitutional: Denies chills, Denies fever(s), Denies headache(s) and Denies poor appetite Cardiovascular: Cardiovascular: Denies chest pain, Denies diaphoresis, Denies dyspnea and Denies paroxysmal nocturnal dyspnea Respiratory: Respiratory: Denies chest congestion, Denies cough and Denies dyspnea Gastrointestinal: Gastrointestinal: Reports as per HPI, Reports abdominal pain ( minimal, mostly at drain site), Reports loose stools ( more formed and less frequent bowel movements), Denies nausea and Denies vomiting Integumentary/Breasts: Skin/Breast: Denies lesions and Denies rash Objective Data Vital Signs Vital Signs: Vital Signs - 24 hr 02/14/22 12:00 02/14/22 14:00 02/14/22 16:03 Temperature 35.7 C L Pulse Rate 105 H 78 84 Respiratory Rate 20 Blood Pressure 136/71 Pulse Oximetry 100 Oxygen Delivery 02/14/22 22:00 02/14/22 20:00 02/15/22 06:00 Temperature 36.0 C L 35.5 C L Pulse Rate 88 80 Respiratory Rate 20 20 Blood Pressure 127/78 152/69 H Pulse Oximetry 100 100 Oxygen Delivery Room Air Intake/Output Intake/Output: Intake & Output 02/12/22 02/13/22 02/14/22 02/15/22 23:59 23:59 23:59 23:59 Intake Total 6870 2950 1834 250 Output Total 2600 2430 30 Balance 4270 520 1834 220 Meds/Results Medications: Active Medications Generic Name Dose Route Start Last Admin Trade Name Freq PRN Reason Stop Dose Admin Acetaminophen 650 mg 02/12/22 14:44 02/13/22 12:31 Acetaminophen 325 Mg Tablet PO 650 mg Q6H PRN Administration Mild Pain (1-3) or Fever Hydrocodone Bitart/Acetaminophen 1 tab 02/12/22 14:44 02/14/22 21:30 Hydrocodone/Acetaminophen (*Crx) 5-325 Mg Tablet PO 1 tab Q4H PRN Administration Pain Rated 4-6 Albuterol 2.5 mg 02/13/22 16:12 Albuterol Sulfate Neb 2.5 Mg/3 Ml Inh INHALATION Q6HRT PRN Shortness Of Breath Alteplase, Recombinant 2 mg 02/13/22 06:32 Alteplase 2 Mg Vial (Cathflo) IV PUSH ONCE PRN Line Occlusion Enoxaparin Sodium 40 mg 02/11/22 13:10 02/14/22 10:00 Enoxaparin 40 Mg/0.4 Ml Syringe SUB-Q 40 mg DAILY RL Administration Levofloxacin 750 mg 02/14/22 13:00 02/14/22 14:43 Levofloxacin 750 Mg Tablet PO 750 mg DAILY RL Administration Morphine Sulfate 4 mg 02/10/22 21:20 Morphine Sulfate (*Crx) 4 Mg/Ml Inj IV PUSH Q2H PRN Pain Rated 7-10 Pantoprazole Sodium 40 mg 02/11/22 11:55 02/14/22 10:00 Pantoprazole Sodium Iv 40 Mg Vial IV PUSH 40 mg QAM RL Administration Promethazine HCl 12.5 mg 02/10/22 21:20 Promethazine Hcl 25 Mg/Ml Ampul IV PUSH Q6H PRN Nausea Sodium Chloride 10 ml 02/11/22 14:00 02/15/22 05:45 Central Line Flush IV PUSH 10 ml Q8HR RL Administration Sodium Chloride 10 ml 02/11/22 10:49 Central Line Flush IV PUSH PRN PRN with TPN bag changes Sodium Chloride 20 ml 02/11/22 10:49 Central Line Flush IV PUSH PRN PRN after blood draws Radiology Results: ITS Impressions Abdomen/Pelvis CT 02/10/22 20:09 IMPRESSION: Acute complicated appendicitis with evidence of rupture, a 4.7 cm periappendiceal abscess, and extension into a 14.1 cm pelvic abscess. Th
[2022-02-15] MEDS: PANTOPRAZOLE SODIUM IV 40 MG VIAL IV PUSH (09:11)
[2022-02-15] MEDS: HYDROcodone/acetaminophen (*CRX) 5-325 MG TABLET 1 TAB PO (09:11)
[2022-02-15] MEDS: ENOXAPARIN 40 MG/0.4 ML SYRINGE SUB-Q (09:11)
[2022-02-15 09:29] VITALS: O2SAT 94
[2022-02-15 09:38] LABS: Platelet Clumps Present; Platelet Estimate Increased (Adequate)
[2022-02-15 09:40] LABS: Band Neutrophils Percent 3 % (0-6); Eosinophils Percent Manual 4 % (0-4); Lymphocytes Absolute Manual 1.21 K/mm3 (1.1-4.5); Lymphocytes Percent Manual 12 % (18-44); Monocytes Percent Manual 8 % (3-9); Neutrophils Absolute Manual 7.57 K/mm3 (1.7-7.2); Neutrophils Percent Manual 72 % (46-73); Total Cells Counted 100
[2022-02-15 09:41] LABS: Myelocytes Percent 1 %
[2022-02-15] MEDS: levoFLOXacin 750 MG TABLET PO (09:41)
[2022-02-15] MEDS: NEOMYCIN/POLYMYXIN/BACITRACIN OINTMENT PACKET 1 PACKET (13:52)
[2022-02-15 14:00] VITALS: BP 150/76; PULSE 86; RESP 20; TEMP 37.2; O2SAT 98
--- NOTE | 2022-02-15 14:49 | PM.DS ---
DS: Admitting Diagnosis Discharge Date February 15, 2022 Admitting Diagnosis Nausea vomiting abdominal pain DS: Discharge Diagnosis Discharge Diagnosis (1) Sepsis: Code(s): A41.9 - Sepsis, unspecified organism Status: Acute Assessment and Plan: Sepsis secondary to acute complicated appendicitis status post rupture and pelvic abscess with pelvic drain placed February 11, 2022 Abscess culture came back showing pansensitive E coli, IV antibiotics discontinued, started on oral Levaquin, okay to discharge when okay per surgery (2) Acute appendicitis with perforation, localized peritonitis, and abscess: Code(s): K35.33 - Acute appendicitis with perforation and localized peritonitis, with abscess Status: Acute Assessment and Plan: see above (3) Acute appendicitis with rupture: Code(s): K35.32 - Acute appendicitis with perforation and localized peritonitis, without abscess Status: Deleted Assessment and Plan: see above (4) FERNANDA (acute kidney injury): Code(s): N17.9 - Acute kidney failure, unspecified Status: Acute Assessment and Plan: Resolved (5) Acute hypokalemia: Code(s): E87.6 - Hypokalemia Status: Acute Assessment and Plan: Replete and recheck tomorrow (6) GERD (gastroesophageal reflux disease): Qualifiers: Esophagitis presence: without esophagitis Qualified Code(s): K21.9 - Gastro-esophageal reflux disease without esophagitis Code(s): K21.9 - Gastro-esophageal reflux disease without esophagitis Status: Acute Assessment and Plan: continue PPI (7) Abscess of pelvis: Status: Acute Assessment and Plan: See above, drain in place, appreciate surgical consultation Plan DVT prophylaxis with Lovenox GI prophylaxis with PPI Code status full code DS: Summary Hospital Course Hospital Course: 76-year-old female with past medical history significant for GERD, dyslipidemia and asthma is presenting with several days of nausea, vomiting abdominal pain as well as diarrhea. She also noted some fevers chills little bit of confusion and lethargy. In the ER CT abdomen and pelvis was done that showed acute complicated appendicitis with evidence of rupture and associated periappendiceal abscess with extension to the pelvis area. She was admitted to the ICU with sepsis and started on aztreonam, vancomycin as well as Flagyl. A percutaneous drain for the abscess was placed. General surgery was consulted. They recommended continuing the IV antibiotics until cultures from the drain came back. Than the recommended discharge on oral antibiotics for about a week, then they will pull the drain in the office. Several weeks after that, plan is to have a colonoscopy. If this shows no perforation of the bowel, surgery would like to remove the appendix at that time. Patient's symptoms completely resolved and she was discharged in good condition with close outpatient follow-up of her pelvic drain by surgery on Levaquin. Time Spent with Patient Time attestation: Total time spent providing and/or coordinating discharge services: Exam Narrative: General: No acute distress, alert and oriented per baseline HEENT: Atraumatic, normocephalic, mucous membranes moist CV: Regular rate and rhythm, S1, S2 Lungs: Clear to auscultation bilaterally, no rales or crackles noted, no wheezes, good air entry Abdomen: Soft, tender to palpation in right and mid lower quadrants, no rebounding or guarding Extremities: Normal to inspection Skin: No rashes noted, no lesions or wounds seen Psych: Euthymic, normal affect DS: Data Data Completed and Pending Labs on day of discharge: Labs from last 24 hours 02/15/22 05:39 WBC 10.1 H RBC 3.47 L Hgb 10.7 L Hct 32.7 L MCV 94.2 MCH 30.8 MCHC 32.7 RDW 14.6 H Plt Count 454 H MPV 8.9 Immature Gran % (Auto) Not Reportable Neut % (Auto) Not Reportable Lym
== END 2022-02-15 15:35 | disposition home or self-care (01) | DRG 871 ==
LOC: ANHED 17:44 → ANHICU 21:29 → ANH3MEDSUR 02-11 23:02
PROVIDERS: Emergency Medicine; Internal Medicine; Nurse Practitioner Family; Admitting Provider Internal Medicine; Emergency Provider Emergency Medicine; PCP Emergency Medicine; Visit Provider Student in an Organized Health Care Education/Training Program
DX: A41.9 Sepsis, unspecified organism (principal); K35.33 Acute appendicitis with perforation, localized peritonitis, and gangrene, with abscess; N17.9 Acute kidney failure, unspecified; E87.1 Hypo-osmolality and hyponatremia; E87.6 Hypokalemia; I10 Essential (primary) hypertension; M10.9 Gout, unspecified; E78.5 Hyperlipidemia, unspecified; J45.909 Unspecified asthma, uncomplicated; E66.9 Obesity, unspecified; Z68.37 Body mass index [BMI] 37.0-37.9, adult; Z79.82 Long term (current) use of aspirin; Z87.891 Personal history of nicotine dependence; Z88.0 Allergy status to penicillin
CPT/HCPCS: 36415; 36569; 74177; 75989; 76775; 80048; 80053; 80202; 81001; 82550; 82570; 82948; 83605; 83690; 84300; 85025; 85610; 85730; 87040; 87070; 87075; 87077; 87086; 87088; 87186; 87205; 87493; 93005; 96361; 96374; 96375; 97110; 97116; 97161; 97165; 97530; 97535; 99285; A9270; C1729; C1751; C9113; J0131; J0610; J1650; J1956; J2405; J3370; J3480; J7030; J7040; Q9967

== ENCOUNTER 2022-02-18 14:29 | Outpatient (CLI) | payer MEDICARE, SELFPAY ==
--- NOTE | ~2022-02-18 | US_ITS ---
EXAMINATION: US venous doppler [facility] DATE: 02/18/2022 15:21 INDICATION: Evaluate for DVT . TECHNIQUE: Grayscale images without and with compression and Doppler images of the bilateral lower ex tremity veins were obtained. COMPARISON: None FINDINGS: The right common femoral vein, profunda (deep) femoral vein, femoral vein, popliteal vein, peroneal v ein, posterior tibial veins, and greater saphenous vein are patent. Cystic structure in the right pop liteal fossa measuring 6.2 x 1.4 x 2.6 cm, likely Teixeira's cyst. The left common femoral vein, profunda femoral vein, femoral vein, popliteal vein, peroneal vein, pos terior tibial veins, and greater saphenous vein are patent. IMPRESSION: 1. Patent bilateral lower extremity veins. No evidence of deep venous thrombosis. 2. Right-sided Teixeira's cyst. Reviewed, dictated and finalized at location K. IMPRESSION: 1. Patent bilateral lower extremity veins. No evidence of deep venous thrombos is. 2. Right-sided Teixeira's cyst.
== END 2022-02-18 14:30 | disposition home or self-care (01) ==
PROVIDERS: PCP Emergency Medicine; Visit Provider Surgery
DX: R60.9 Edema, unspecified (principal); M71.21 Synovial cyst of popliteal space [Baker], right knee
CPT/HCPCS: 93970

== ENCOUNTER 2022-02-27 11:22 | Outpatient (CLI) | payer MEDICARE, SELFPAY ==
--- NOTE | ~2022-02-27 | XR_ITS ---
EXAMINATION: XR abdomen obstructive series DATE: 02/27/2022 11:48 INDICATION: Acute appendicitis. TECHNIQUE: Supine and upright views of the abdomen. FINDINGS: No prior studies for comparison. The visualized lung parenchyma is normal.. There is a nonobstructive bowel gas pattern. Gas and stool are seen throughout the colon to the level of the rectum. There is no free air. Moderate colonic fe rene loading. No abnormal calcifications. IMPRESSION: 1. No acute abdominal abnormality. Moderate colonic fecal loading. Reviewed, dictated and finalized at location B.
== END 2022-02-27 11:23 | disposition home or self-care (01) ==
LOC: ANHIMG 11:27
PROVIDERS: PCP Emergency Medicine; Visit Provider Emergency Medicine
DX: K35.33 Acute appendicitis with perforation, localized peritonitis, and gangrene, with abscess (principal)
CPT/HCPCS: 74019

== ENCOUNTER 2022-03-25 02:27 | Day surgery (SDC) | payer MEDICARE, SELFPAY ==
[2022-03-14 10:21] VITALS: BMI 37.4
--- NOTE | 2022-03-22 13:33 | PM.HPGS ---
History of Present Illness History of Present Illness Consent: Risks, benefits, and alternatives have been discussed and questions answered. Patient agrees to proceed with procedure. Chief complaint: peritonitis, abnormal CT scan Narrative: Gogo Dickens is a 76 year old female Referred for colon cancer screening. Her father had colon cancer. She recently developed peritonitis from ruptured appendicitis. Review of Systems Review of Systems: All systems reviewed & are unremarkable except as noted in HPI and below PMFSH Past Medical History Medical History GERD (gastroesophageal reflux disease) Gout History of TIA (transient ischemic attack) x 2 HLD (hyperlipidemia) Overactive bladder Vitamin D deficiency disease Surgical History Surgical History History of bladder surgery history of implantable pulse generator for overactive bladder, status post removal in 2015, reported postop infection History of colonoscopy last colonoscopy January 2018 with findings of diverticulosis History of partial hysterectomy History of vein stripping Tie Up Family History Family History Mother Family history of malignant neoplasm, Onset Age: 62 Father Carcinoma of colon Social History Social History Smoking packs per day: 0.5 Smoking cigarettes per day: 10.0 Years smoked: 50 Smoking pack-years: 25.00 Smoking status: Former smoker Tobacco type: cigarettes Alcohol intake: current Drinks per week: 2 Substance use: never Substance use type: does not use Living arrangements: with family Spiritual care concerns: No Meds Home Medications and Allergies Home Medications Medication Instructions Recorded Confirmed Type aspirin 81 mg tablet 81 mg PO DAILY 04/22/19 03/14/22 History diclofenac sodium 75 mg 75 mg PO BID #60 tabs 06/25/21 03/14/22 Rx tablet,delayed release albuterol sulfate 90 mcg/actuation 2 puff inhalation BID PRN 02/08/22 03/14/22 Rx aerosol inhaler (ProAir HFA) shortness of breath or wheezing #8.5 grams cholecalciferol (vitamin D3) 50 50 mcg PO DAILY 02/10/22 03/14/22 History mcg (2,000 unit) tablet lisinopril 20 mg tablet 20 mg PO DAILY 02/10/22 03/14/22 History omeprazole 20 mg capsule,delayed 20 mg PO DAILY 02/10/22 03/14/22 History release rosuvastatin 10 mg tablet 10 mg PO DAILY 02/10/22 03/14/22 History lisinopril 20 1 tablet PO DAILY 03/14/22 03/14/22 History mg-hydrochlorothiazide 12.5 mg tablet Allergies Allergy/AdvReac Type Severity Reaction Status Date / Time Penicillins Allergy Intermediate Rash Verified 03/25/22 11:13 Exam Const: General: alert Orientation/consciousness: patient oriented x3 Resp: Auscultation: clear to auscultation bilaterally Cardio: Rhythm: regular rhythm GI: GI Palp: Yes Soft to palpation and No Tenderness to palpation present (GI) Neuro: General: patient oriented x3 Assessment and Plan Assessment and plan (1) Colon cancer screening: Code(s): Z12.11 - Encounter for screening for malignant neoplasm of colon Status: Acute Assessment and Plan: Colonoscopy with possible biopsy or polypectomy or cautery or injection of substances.
[2022-03-25 11:14] VITALS: BP 151/85; PULSE 96; RESP 22; TEMP 36.3; O2SAT 100
[2022-03-25] MEDS: LACTATED RINGERS 1,000 ML 150 ML IV CONT (11:26)
--- NOTE | 2022-03-25 11:38 | WPDANESEPPF ---
Anes - Initial Pre Proc Eval Procedure: Operation Date: 03/25/22 12:30 Proposed Procedures p Colonoscopy - Fernando Hanna MD Date/Time: 03/25/22 11:38 Surgeon: Fernando Hanna MD Pre Op Diagnosis: peritonitis, abnormal CT scan Patient Data Age: 76 Gender: F Height: 1.65 m Weight: 102 kg Last Vital Signs Temp 97.3 F L 03/25/22 11:14 Pulse 96 03/25/22 11:14 Resp 22 H 03/25/22 11:14 BP 151/85 H 03/25/22 11:14 Pulse Ox 100 03/25/22 11:14 O2 Del Method Room Air 03/25/22 11:14 Allergies Allergy/AdvReac Type Severity Reaction Status Date / Time Penicillins Allergy Intermediate Rash Verified 03/25/22 11:13 Home Medications Medication Instructions Recorded Confirmed Type aspirin 81 mg tablet 81 mg PO DAILY 04/22/19 03/14/22 History diclofenac sodium 75 mg 75 mg PO BID #60 tabs 06/25/21 03/14/22 Rx tablet,delayed release albuterol sulfate 90 mcg/actuation 2 puff inhalation BID PRN 02/08/22 03/14/22 Rx aerosol inhaler (ProAir HFA) shortness of breath or wheezing #8.5 grams cholecalciferol (vitamin D3) 50 50 mcg PO DAILY 02/10/22 03/14/22 History mcg (2,000 unit) tablet lisinopril 20 mg tablet 20 mg PO DAILY 02/10/22 03/14/22 History omeprazole 20 mg capsule,delayed 20 mg PO DAILY 02/10/22 03/14/22 History release rosuvastatin 10 mg tablet 10 mg PO DAILY 02/10/22 03/14/22 History lisinopril 20 1 tablet PO DAILY 03/14/22 03/14/22 History mg-hydrochlorothiazide 12.5 mg tablet Patient hx anesthesia problems: none Family hx anesthesia problems: none Results Review: All pre-operative results and documents have been reviewed as part of the pre-operative evaluation. [facility] Past Medical History Medical History GERD (gastroesophageal reflux disease) Gout History of TIA (transient ischemic attack) x 2 HLD (hyperlipidemia) Overactive bladder Vitamin D deficiency disease Surgical History Surgical History History of bladder surgery history of implantable pulse generator for overactive bladder, status post removal in 2016, reported postop infection History of colonoscopy last colonoscopy January 2018 with findings of diverticulosis History of partial hysterectomy History of vein stripping Tie Up Family History Family History Mother Family history of malignant neoplasm, Onset Age: 62 Father Carcinoma of colon Social History Social History Smoking packs per day: 0.5 Smoking cigarettes per day: 10.0 Years smoked: 50 Smoking pack-years: 25.00 Smoking status: Former smoker Tobacco type: cigarettes Alcohol intake: current Drinks per week: 2 Substance use: never Substance use type: does not use Living arrangements: with family Spiritual care concerns: No Anes - Eval Final PreProcedure Day of Procedure 03/25/22 11:38 Patient weight: obese Heart: regular rate and rhythm Lungs: clear to auscultation Airway: Mallampati scale class II Neurological: alert and oriented Last oral intake: >/= 8 hours ASA classification: III Emergent: no Anesthetic plan: proceed Anesthesia type and monitoring: general GIVS and standard monitoring Results Review: All pre-operative results and documents have been reviewed as part of the pre-operative evaluation. Informed Consent: The patient's anesthetic plan and its attendant risks and benefits were discussed with the patient/family/POA. Questions were solicited and answers provided to the satisfaction of the patient/family/POA.
[2022-03-25 12:39] VITALS: BP 134/63; PULSE 73; RESP 17; O2SAT 100
[2022-03-25 12:49] VITALS: BP 138/70; PULSE 74; RESP 20; O2SAT 100
[2022-03-25 12:59] VITALS: BP 166/76; PULSE 78; RESP 23; O2SAT 99
== END 2022-03-25 13:25 | disposition home or self-care (01) ==
PROVIDERS: PCP Emergency Medicine; Visit Provider Internal Medicine Gastroenterology
PROC: 0DJD8ZZ Inspection of Lower Intestinal Tract, Via Natural or Artificial Opening Endoscopic (ICD-10-PCS; CPT 45378; principal; 2022-03-25 12:30)
DX: Z12.11 Encounter for screening for malignant neoplasm of colon (principal); K57.30 Diverticulosis of large intestine without perforation or abscess without bleeding; Z80.0 Family history of malignant neoplasm of digestive organs; E78.5 Hyperlipidemia, unspecified; E55.9 Vitamin D deficiency, unspecified; K21.9 Gastro-esophageal reflux disease without esophagitis; Z79.82 Long term (current) use of aspirin; Z87.891 Personal history of nicotine dependence; E66.9 Obesity, unspecified; Z68.37 Body mass index [BMI] 37.0-37.9, adult
CPT/HCPCS: G0105; J2704; J7120

== ENCOUNTER 2022-04-11 20:27 | Inpatient (IN) | payer MEDICARE, SELFPAY ==
--- NOTE | 2022-04-03 13:27 | PC.NURSE ---
Report to the Outpatient Waiting Room, entrance under the green pavilion located off [facility], at time __1130 on date __04/11/22 . Planned Procedure Time: __1330 . Time changes happen often and if your time is changed the preop area will call you the afternoon before. - You and your visitor will be asked to self-screen and do not enter if you have any COVID symptoms. - We encourage only one visitor and NO visitors under age 16 are allowed at this time. Your visitor will receive communication by the phone number that is given day of service. - The patient visitor is requested to social distance or may leave the building when not with patient due to restrictions. - A mask is required within the hospital. Patients may have clear liquids (water, carbonated beverages, clear teas, apple juice) until 3 hours prior to surgery with a maximum of 20 ounces. - No food from midnight until time of surgery - Infants may have breast milk until 4 hours before surgery, formula 6 hours prior to surgery. - Children will be allowed to drink immediately following surgery. If applicable, please bring a bottle or sippy cup to assist with drinking. Juice, water, soda, and popsicles are readily available. For infants on formula, please bring formula the day of surgery. Pacifiers are allowed. Take the following medications with a SIP of water the morning of surgery: ____INHALER IF NEEDED Medications to discontinue per physician ALL VITAMINS 3 DAYS PRE OP Date to take last dose_04/07/22 Please no make-up, nail paraguayan, hairspray, perfume, deodorant, or body powder the day of surgery. No jewelry (including any body piercings) or valuables the day of surgery, leave them at home. Please take a shower or bath the night before, or the morning of, surgery with an antibacterial soap. Wear comfortable, loose fitting clothing. Children are encouraged to wear pajamas. - Jewelry must be removed prior to entering the operating room. Rings and piercings that are not removed may be cut off. - The hospital will not accept responsibility for valuables. - Please leave all valuables, including medications, at home the day of surgery. If you are going home after surgery, a licensed ambulette driver must drive you home. - NO public transportation without another adult. - We recommend that an adult stay with you for 24 hours following discharge. - We also recommend that you do not drive, make important decision, drink alcoholic beverages, or take any drugs that were not prescribed by your health care provider for at least 24 hours after your discharge time. Follow any additional instructions given to you from your surgeon. If you or anyone in your household have experienced Covid symptoms in the past week, please notify your surgeon or the nurse liaison at the phone number below for possible testing. Telephone instructions given to __PATIENT and asked if any additional questions and then verbalized understanding. Patient advised to call surgeon office or pre surgery nurse liaison [phone] if any additional questions.
[2022-04-03 13:36] VITALS: BMI 37.4
--- NOTE | 2022-04-09 17:41 | PM.SD2 ---
Same Day Admit/Disch: HPI History of Present Illness Chief complaint: Rupture Appendicitis with Abscess Narrative: Gogo Dickens is a 76 year old female who presented to the emergency room on 02/10/2022 with 10-11 days of abdominal pain and fever with progressive weakness. Evaluation there showed evidence of ruptured appendicitis with a large periappendiceal abscess extending into the pelvis. She responded well to percutaneous drainage with a pigtail catheter and IV antibiotics. The catheter was placed on 02/11/2022. She was able to be discharged in the catheter was removed in the office on 02/21/2022. It was discussed with the patient that interval appendectomy is desirable to avoid recurrence of appendicitis as well as to ensure there was no malignancy of the appendix. The patient did have full colonoscopy on 03/25/[address] Hanna. This was negative other than some diverticulosis. She is taken to surgery now for laparoscopic interval appendectomy. [facility] Past Medical History Medical History GERD (gastroesophageal reflux disease) Gout History of TIA (transient ischemic attack) x 2 HLD (hyperlipidemia) Overactive bladder Vitamin D deficiency disease Surgical History Surgical History History of bladder surgery history of implantable pulse generator for overactive bladder, status post removal in 2015, reported postop infection History of colonoscopy last colonoscopy January 2018 with findings of diverticulosis History of partial hysterectomy History of vein stripping Tie Up Family History Family History Mother Family history of malignant neoplasm, Onset Age: 62 Father Carcinoma of colon Social History Social History Smoking packs per day: 0.5 Smoking cigarettes per day: 10.0 Years smoked: 50 Smoking pack-years: 25.00 Smoking status: Former smoker Tobacco type: cigarettes Smoking end date: 10/31/21 Alcohol intake: current Drinks per week: 2 Alcohol use details: TWO DRINKS PER MONTH Substance use: never Substance use type: does not use Living arrangements: with family Spiritual care concerns: No Same Day Admit/Disch: Med Pre-admit Medications Home Medications Medication Instructions Recorded Confirmed Type aspirin 81 mg tablet 81 mg PO DAILY 04/22/19 04/03/22 History diclofenac sodium 75 mg 75 mg PO BID #60 tabs 06/25/21 04/03/22 Rx tablet,delayed release albuterol sulfate 90 mcg/actuation 2 puff inhalation BID PRN 02/08/22 04/03/22 Rx aerosol inhaler (ProAir HFA) shortness of breath or wheezing #8.5 grams cholecalciferol (vitamin D3) 50 50 mcg PO DAILY 02/10/22 04/11/22 History mcg (2,000 unit) tablet lisinopril 20 mg tablet 20 mg PO DAILY 02/10/22 04/03/22 History omeprazole 20 mg capsule,delayed 20 mg PO DAILY 02/10/22 04/03/22 History release rosuvastatin 10 mg tablet 10 mg PO DAILY 02/10/22 04/03/22 History lisinopril 20 1 tablet PO DAILY 03/14/22 04/03/22 History mg-hydrochlorothiazide 12.5 mg tablet multivitamin 1 tablet PO DAILY 04/03/22 04/11/22 History Exam Const: General: comfortable, no acute distress, alert and awake HENMT: Head: normocephalic and atraumatic Mouth: Yes Normal oral and palatal mucosa present Eyes: Conjunctivae: conjunctivae normal Pupils: Equal, round and reactive pupils present EOM: EOMs intact bilaterally Neck: Neck: normal visual inspection, no lymphadenopathy and nontender Resp: Effort & Inspection: normal respiratory effort Auscultation: clear to auscultation bilaterally Cardio: Rate: regular rate Rhythm: regular rhythm Heart sounds: no gallops, no murmurs and no rubs GI: Inspection: non-distended GI Palp: Yes Soft to palpation, No Tenderness to palpation p
[2022-04-11] VITALS (13 sets, daily range): BP systolic 128–168; BP diastolic 58–94; PULSE 69–108; RESP 12–20; TEMP 36.4–37.3; O2SAT 96–100; BMI 38.2
--- NOTE | 2022-04-11 12:02 | SUR.PREOP ---
1207- Patient and spouse, Mikel verbalized understanding that procedure start time will be delayed.
--- NOTE | 2022-04-11 12:23 | WPDHPUPDATE1 ---
History and Physical Update Update Date/Time: 04/11/22 12:23 History and Physical has been reviewed, including an updated exam of the patient. There are NO changes in the patient's condition. Risks, benefits, and alternatives have been discussed and questions answered. Patient agrees to proceed with procedure.
[2022-04-11] MEDS: LACTATED RINGERS 1,000 ML 30 ML IV CONT ×3 (12:55→19:38)
--- NOTE | 2022-04-11 13:29 | WPDANESEPPF ---
Anes - Initial Pre Proc Eval Procedure: Operation Date: 04/11/22 14:15 Proposed Procedures p Laparoscopic Interval Appendectomy - Clifton Post MD Date/Time: 04/11/22 13:29 Surgeon: Clifton Post MD Pre Op Diagnosis: Rupture Appendicitis with Abscess Patient Data Age: 76 Gender: F Height: 1.65 m Weight: 104.2 kg Last Vital Signs Temp 99.1 F 04/11/22 12:05 Pulse 80 04/11/22 12:05 Resp 16 04/11/22 12:05 BP 145/91 H 04/11/22 12:05 Pulse Ox 100 04/11/22 12:05 O2 Del Method Room Air 04/11/22 12:05 Allergies Allergy/AdvReac Type Severity Reaction Status Date / Time Penicillins Allergy Intermediate Rash Verified 04/11/22 12:16 Home Medications Medication Instructions Recorded Confirmed Type aspirin 81 mg tablet 81 mg PO DAILY 04/22/19 04/03/22 History diclofenac sodium 75 mg 75 mg PO BID #60 tabs 06/25/21 04/03/22 Rx tablet,delayed release albuterol sulfate 90 mcg/actuation 2 puff inhalation BID PRN 02/08/22 04/03/22 Rx aerosol inhaler (ProAir HFA) shortness of breath or wheezing #8.5 grams cholecalciferol (vitamin D3) 50 50 mcg PO DAILY 02/10/22 04/11/22 History mcg (2,000 unit) tablet lisinopril 20 mg tablet 20 mg PO DAILY 02/10/22 04/03/22 History omeprazole 20 mg capsule,delayed 20 mg PO DAILY 02/10/22 04/03/22 History release rosuvastatin 10 mg tablet 10 mg PO DAILY 02/10/22 04/03/22 History lisinopril 20 1 tablet PO DAILY 03/14/22 04/03/22 History mg-hydrochlorothiazide 12.5 mg tablet multivitamin 1 tablet PO DAILY 04/03/22 04/11/22 History Patient hx anesthesia problems: none Family hx anesthesia problems: none Results Review: All pre-operative results and documents have been reviewed as part of the pre-operative evaluation. [facility] Past Medical History Medical History GERD (gastroesophageal reflux disease) Gout History of TIA (transient ischemic attack) x 2 HLD (hyperlipidemia) Overactive bladder Vitamin D deficiency disease Surgical History Surgical History History of bladder surgery history of implantable pulse generator for overactive bladder, status post removal in 2015, reported postop infection History of colonoscopy last colonoscopy January 2018 with findings of diverticulosis History of partial hysterectomy History of vein stripping Tie Up Family History Family History Mother Family history of malignant neoplasm, Onset Age: 62 Father Carcinoma of colon Social History Social History Smoking packs per day: 0.5 Smoking cigarettes per day: 10.0 Years smoked: 50 Smoking pack-years: 25.00 Smoking status: Former smoker Tobacco type: cigarettes Smoking end date: 10/31/21 Alcohol intake: current Drinks per week: 2 Alcohol use details: TWO DRINKS PER MONTH Substance use: never Substance use type: does not use Living arrangements: with family Spiritual care concerns: No Anes - Eval Final PreProcedure Day of Procedure 04/11/22 13:29 Patient weight: obese Heart: regular rate and rhythm Lungs: clear to auscultation Airway: Mallampati scale class II Neurological: alert and oriented Last oral intake: >/= 8 hours ASA classification: III Emergent: no Anesthetic plan: proceed Anesthesia type and monitoring: general ETT and standard monitoring Results Review: All pre-operative results and documents have been reviewed as part of the pre-operative evaluation. Informed Consent: The patient's anesthetic plan and its attendant risks and benefits were discussed with the patient/family/POA. Questions were solicited and answers provided to the satisfaction of the patient/family/POA.
--- NOTE | 2022-04-11 14:30 | SUR.PREOP ---
1430- Patient refused toradol dose due to avoiding NSAID's. Notified Dr. Post of patient refusal.
[2022-04-11] MEDS: ceFAZolin 2 GM/D5W 50 ML 2 GM/50 ML BAG IVPB (14:46)
[2022-04-11] MEDS: BUPIVACAINE/EPINEPHRINE 0.25% 50 ML VIAL INFILTRATE (17:06)
[2022-04-11] MEDS: HEMOSTATIC MATRIX (SURGIFLO with THROMBIN) KIT 1 KIT XX (18:21)
[2022-04-11] MEDS: HYDROmorphone HCL INJ (*CRX) 1 MG/ML SYR 0.25 MG IV PUSH ×4 (19:08→19:24)
--- NOTE | 2022-04-11 19:13 | W.PM.PROC2 ---
Procedure Note - Detailed Date of Procedure 04/11/22 Pre-op Diagnosis Rupture Appendicitis with Abscess Post-op Diagnosis Other (Ruptured appendicitis with abscess, appendiceal colonic fistula) Procedure Performed Laparoscopic adhesiolysis, open appendectomy, takedown and repair of appendiceal fistula, right salpingo oophorectomy Surgeon Clifton Post MD Hide Sorter Liam YOUNG Anesthesia General and Local (0.25% Marcaine with epinephrine) Indications Patient presented 02/10/2022 with a large periappendiceal and pelvic abscess most likely due to ruptured appendicitis. She responded well to antibiotics and percutaneous drainage. She continued to improve after her drain was removed. She underwent full colonoscopy in late March which was negative. She is taken to surgery now for interval laparoscopic appendectomy to prevent recurrence as well as to rule out appendiceal cancer. Findings The surgery was extremely difficult. The procedure was expected to last about 90 minutes instead it lasted nearly 3-1/2 hours. The adhesions associated with the small bowel in the appendix in the right lower quadrant were extremely dense and dissection was very difficult. The ascending colon had to be largely mobilized laparoscopically. Extra ports were placed laparoscopically so that the pelvis could be exposed. There was a loop of ileum that was densely adherent to the deepest portion of the right pelvis. All these adhesions were taken down. The appendix was followed and laparoscopic least seemed to adjoined to an additional organ. This was not any anatomy that I had ever seen before and I was concerned that there may be a malignancy or other process that I was not able to appreciate laparoscopically. We spent at least 2 of the 3-1/2 hours with laparoscopic adhesiolysis and dissection. The right tube and ovary were directly part of the dense adhesions associated with the appendix and after mobilization of these and the appendix the right ovaries blood supply was questionable. The right ovary and part of the tube was then removed during the open surgery. When we converted open surgery, no evidence of a bowel injury was noted. The adhesions in the pelvis were essentially taken down. There was still some epiploic adhesions to the urinary bladder. 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 I saw no evidence of appendiceal cancer. Blood loss was 150 cc which is 5 times more than we would typically see for this procedure. Description of Procedure Patient was taken to surgery and induced into general anesthesia. The abdomen was prepped and draped. Initial trocar was a 5 mm applied Medical optical trocar was placed in the left subcostal position. After this trocar was placed we insufflated and I placed a 5 mm left-sided mid abdominal trocar as well as a left lower abdominal 10 11 trocar. Patient was placed in Trendelenburg with the right-side elevated. The ascending colon was found and dissection was carried down to the tenia at the cecum. Initially the adhesions did not seem to be bad at all. I did partially mobilize the cecum trying to locate the appendix. However as we started to approach the right upper pelvis, the adhesions were now extremely dense. There was small bowel adherent to and covering the appendix. I attempted to mobilize this ileum and also exposed the appendix. The adhesions were extremely dense. It was difficult to place proper tension to form laparoscopic adhesiolysis. I placed an additional 5 mm port in the right upper quadrant. We moved our camera to this location which gave us much better visualization. We then set about with a very difficult adhesiolysis mobilizing the lower half if not the majority of the ascending colon from lateral peritoneal attachments. I also dissected the distal ileum which had looped to a dense adhesion in the right pelvis. This was very diffic
[2022-04-11] MEDS: fentaNYL CITRATE INJ (*CRX) 100 MCG/2 ML VIAL 25 MCG IV PUSH ×7 (19:27→19:53)
[2022-04-11] MEDS: ONDANSETRON INJ 4 MG/2 ML VIAL IV PUSH (19:49)
[2022-04-11] MEDS: diphenhydrAMINE HCl INJ 50 MG/ML VIAL 12.5 MG IV PUSH (20:18)
--- NOTE | 2022-04-11 20:45 | ADMGEN ---
This patient, Gogo Dickens, was admitted to Medical Room 254-01. Patient/family oriented to hospital policies and general routines including ID bracelet, bed and alarms, visiting hours, pain management, procedures, bathroom and other care routines, personal items, smoking policy, room service/diet, and visiting hours. Information on how to activate the Rapid Response Team has been discussed. Patient/Family are encouraged to report perceived risks to care and to ask questions if they do not understand what they are told or what they should do.
[2022-04-11] MEDS: HYDROcodone/acetaminophen (*CRX) 5-325 MG TABLET 1 TAB PO (21:34)
[2022-04-11] MEDS: LACTATED RINGERS 1,000 ML 100 ML IV CONT (21:36)
[2022-04-11] MEDS: FAMOTIDINE 20 MG/2 ML VIAL IV PUSH (21:45)
[2022-04-11] MEDS: IBUPROFEN IV 800 MG/200 ML 800 MG/200 ML BAG 400 MG IVPB (22:28)
[2022-04-12] VITALS (7 sets, daily range): BP systolic 123–163; BP diastolic 51–72; PULSE 89–109; RESP 12–20; TEMP 36.4–37.2; O2SAT 97–100
[2022-04-12] MEDS: IBUPROFEN IV 800 MG/200 ML 800 MG/200 ML BAG 400 MG IVPB ×4 (03:18→20:26)
[2022-04-12] MEDS: HYDROcodone/acetaminophen (*CRX) 5-325 MG TABLET 1 TAB PO ×2 (03:30→12:12)
[2022-04-12 05:55] LABS: Anion Gap 11 mmol/L (8-16); Blood Urea Nitrogen 18 mg/dL (7-17); Calcium 8.5 mg/dL (8.4-10.2); Carbon Dioxide 27 mmol/L (22-30); Chloride 102 mmol/L (98-107); Estimated CRCL calculation 73 ml/min; Estimated Glomerular Filt Rate > 60; Glucose 124 mg/dL (65-110); Potassium 3.9 mmol/L (3.4-5.0); Sodium 140 mmol/L (137-145)
[2022-04-12 06:18] LABS: Hematocrit 35.5 % (37.0-47.0); Hemoglobin 11.4 g/dL (12.0-15.0); Mean Corpuscular HGB Conc 32.1 g/dl (32-36); Mean Corpuscular Hemoglobin 30.3 pg (26-34); Mean Corpuscular Volume 94.4 fl (80-100); Mean Platelet Volume 11.4 fl (7.4-10.4); Platelet Count Result 253 k/mm3 (150-375); Red Blood Count 3.76 M/mm3 (4.2-5.4); Red Cell Distribution Width 14.6 % (11.5-14.5); White Blood Count 10.2 K/mm3 (4.5-10.0)
--- NOTE | 2022-04-12 07:34 | WPDANESPN ---
Anes - Prog Note Post-Op Date/Time: 04/12/22 07:34 Cardiovascular status: normal Respiratory status: normal Airway patency: baseline Mental status: baseline Post-Op hydration status: normal Vital Signs: Last Vital Signs Temp 97.7 F 04/12/22 05:09 Pulse 103 H 04/12/22 05:09 Resp 20 04/12/22 05:09 BP 123/55 L 04/12/22 05:09 Pulse Ox 98 04/12/22 05:09 O2 Del Method Nasal Cannula 04/11/22 22:00 O2 Flow Rate 2 04/11/22 22:00 Pain Score (VAS): 0/10 I/O: Intake & Output 04/11/22 04/11/22 04/12/22 15:59 23:59 07:59 Intake Total 50 600 Balance 50 600 Laboratory Tests 04/12/22 05:19 04/12/22 05:19 04/12/22 04/12/22 05:19 05:19 WBC 10.2 H RBC 3.76 L Hgb 11.4 L Hct 35.5 L MCV 94.4 MCH 30.3 MCHC 32.1 RDW 14.6 H Plt Count 253 MPV 11.4 H Sodium 140 Potassium 3.9 Chloride 102 Carbon Dioxide 27 Anion Gap 11 BUN 18 H Creatinine 0.70 Estim Creat Clear Calc 73 Estimated GFR > 60 Glucose 124 H Calcium 8.5 Post-procedural complaints: none Patient Feedback: Patient satisfied with anesthetic care.
--- NOTE | 2022-04-12 07:58 | PM.PNGS ---
Progress Note: A&P Assessment and Plan (1) Acute appendicitis with perforation, localized peritonitis, and abscess: Code(s): K35.33 - Acute appendicitis with perforation, localized peritonitis, and gangrene, with abscess Status: Acute Assessment and Plan: Patient doing well postop day 1 after extensive laparoscopic adhesiolysis followed by open surgery with takedown appendiceal colonic fistula and appendectomy. Will advance to full liquids. Up walking. Start dressing changes. DC Hernandez catheter tomorrow. 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 Subjective Subjective Date/Time Seen: 04/12/22 07:58 Post Op day: 1 Patient reports: still having pain, tolerating liquids well, no flatus, no bowel movement and afebrile Exam Const: General: comfortable and no acute distress; No confusion Orientation/consciousness: patient oriented x3 and No confusion GI: Inspection: non-distended and incision (Healing well, minimal drainage) GI Palp: Yes Soft to palpation, Yes Tenderness to palpation present (GI) (Normal postoperative tenderness), No Guarding due to palpation present (GI) and No Rebound tenderness present Auscultation: Hypoactive bowel sounds present Neuro: General: patient oriented x3, no focal motor deficits and No confusion Extrem: General: no calf tenderness and no edema Psych: Affect: normal affect Insight: Good insight present (Psych) Judgement: Good judgement present (Psych) Objective Data Vital Signs Vital Signs: Vital Signs - 24 hr 04/11/22 12:05 04/11/22 18:55 04/11/22 19:10 Temperature 37.3 C 36.6 C Pulse Rate 80 72 85 Respiratory Rate 16 18 14 Blood Pressure 145/91 H 129/70 143/70 H Pulse Oximetry 100 97 97 Oxygen Delivery Room Air Simple Face Mask Simple Face Mask Oxygen Flow Rate 10 10 04/11/22 19:25 04/11/22 19:40 04/11/22 19:55 Temperature Pulse Rate 85 86 82 Respiratory Rate 12 12 12 Blood Pressure 143/63 H 147/80 H 150/58 H Pulse Oximetry 96 98 99 Oxygen Delivery Simple Face Mask Nasal Cannula Nasal Cannula Oxygen Flow Rate 10 2 2 04/11/22 20:10 04/11/22 20:25 04/11/22 22:00 Temperature Pulse Rate 81 69 Respiratory Rate 12 12 Blood Pressure 158/79 H 154/78 H Pulse Oximetry 99 97 97 Oxygen Delivery Room Air Nasal Cannula Nasal Cannula Oxygen Flow Rate 2 2 04/11/22 20:45 04/11/22 21:00 04/11/22 21:30 Temperature 36.7 C 36.4 C 36.4 C Pulse Rate 83 83 75 Respiratory Rate 16 16 16 Blood Pressure 130/81 168/87 H 154/94 H Pulse Oximetry 99 99 100 Oxygen Delivery Oxygen Flow Rate 04/11/22 22:30 04/12/22 02:00 04/12/22 05:09 Temperature 37.1 C 37.2 C 36.5 C Pulse Rate 108 H 109 H 103 H Respiratory Rate 20 12 20 Blood Pressure 128/81 136/65 123/55 L Pulse Oximetry 99 99 98 Oxygen Delivery Oxygen Flow Rate Intake/Output Intake/Output: Intake & Output 04/09/22 04/10/22 04/11/22 04/12/22 23:59 23:59 23:59 23:59 Intake Total 650 Balance 650 Meds/Results Medications: Active Medications Generic Name Dose Route Start Last Admin Trade Name Freq PRN Reason Stop Dose Admin Acetaminophen 500 mg 04/11/22 20:27 Acetaminophen 500 Mg Tablet PO Q6H PRN Mild Pain (1-3) or Fever Hydrocodone Bitart/Acetaminophen 1 tab 04/11/22 20:27 04/12/22 03:30 Hydrocodone/Acetaminophen (*Crx) 5-325 Mg Tablet PO 1 tab Q4H PRN Administration Pain Rated 4-6 Albuterol 2 puff 04/11/22 20:27 Albuterol Sulfate (*Sp) Aerosol 1 Puff INHALATION BID PRN shortness of breath or wheezing Aspirin 81 mg 04/12/22 09:00 Aspirin 81 Mg Enteric Tablet PO 05/12/22 08:59 DAILY RL Famotidine 20 mg 04/11/22 21:00 04/11/22 21:45 Famotidine 20 Mg/2 Ml Vial IV PUSH 20 mg Q12HR RL Administration Fentanyl Citrate 25 mcg 04/11/22 20:27 Fentanyl
[2022-04-12] MEDS: ASPIRIN 81 MG ENTERIC TABLET PO (09:08)
[2022-04-12] MEDS: lisinopriL 20 MG TABLET PO (09:09)
[2022-04-12] MEDS: PANTOPRAZOLE 40 MG TABLET PO (09:09)
[2022-04-12] MEDS: hydroCHLOROthiazide 12.5 MG CAPSULE PO (09:09)
[2022-04-12] MEDS: FAMOTIDINE 20 MG/2 ML VIAL IV PUSH ×2 (09:13→20:26)
[2022-04-12] MEDS: KCL 40 MEQ/0.9% SOD CHL 1,000 ML 80 ML IV CONT ×2 (10:25→23:55)
--- NOTE | 2022-04-12 12:50 | PC.NURSE ---
On 04/12/22, the student, [Celestina Nugent], provided care and completed [facility] documentation on this patient. I have reviewed the student's documentation and agree with the findings.
[2022-04-13] VITALS (7 sets, daily range): BP systolic 151–179; BP diastolic 60–89; PULSE 99–105; RESP 14–22; TEMP 36.7–36.9; O2SAT 93–100
[2022-04-13] MEDS: IBUPROFEN IV 800 MG/200 ML 800 MG/200 ML BAG 400 MG IVPB ×4 (02:53→20:40)
[2022-04-13 05:55] LABS: Hematocrit 31.5 % (37.0-47.0); Hemoglobin 9.9 g/dL (12.0-15.0); Mean Corpuscular HGB Conc 31.4 g/dl (32-36); Mean Corpuscular Hemoglobin 30.6 pg (26-34); Mean Corpuscular Volume 97.2 fl (80-100); Mean Platelet Volume 10.8 fl (7.4-10.4); Platelet Count Result 181 k/mm3 (150-375); Red Blood Count 3.24 M/mm3 (4.2-5.4); Red Cell Distribution Width 14.7 % (11.5-14.5); White Blood Count 8.7 K/mm3 (4.5-10.0)
[2022-04-13 06:03] LABS: Anion Gap 12 mmol/L (8-16); Blood Urea Nitrogen 13 mg/dL (7-17); Carbon Dioxide 28 mmol/L (22-30); Chloride 102 mmol/L (98-107); Estimated CRCL calculation 64 ml/min; Estimated Glomerular Filt Rate > 60; Glucose 110 mg/dL (65-110); Potassium 3.7 mmol/L (3.4-5.0); Sodium 142 mmol/L (137-145)
--- NOTE | 2022-04-13 06:51 | PC.NURSE ---
Pt voided 75CC clear yellow urine and then ambulated to chair. Pt does use a walker at home, will have PT see for a walker.
[2022-04-13] MEDS: ASPIRIN 81 MG ENTERIC TABLET PO (09:12)
[2022-04-13] MEDS: hydroCHLOROthiazide 12.5 MG CAPSULE PO (09:12)
[2022-04-13] MEDS: PANTOPRAZOLE 40 MG TABLET PO (09:12)
[2022-04-13] MEDS: lisinopriL 20 MG TABLET PO (09:12)
[2022-04-13] MEDS: FAMOTIDINE 20 MG/2 ML VIAL IV PUSH (09:13)
[2022-04-13] MEDS: ACETAMINOPHEN 500 MG TABLET PO (14:05)
[2022-04-13] MEDS: KCL 40 MEQ/0.9% SOD CHL 1,000 ML 80 ML IV CONT (14:10)
--- NOTE | 2022-04-13 17:54 | PM.PNGS ---
Progress Note: A&P Assessment and Plan (1) Acute appendicitis with perforation, localized peritonitis, and abscess: Code(s): K35.33 - Acute appendicitis with perforation, localized peritonitis, and gangrene, with abscess Status: Acute Assessment and Plan: Patient doing well postop day 2 after extensive laparoscopic adhesiolysis followed by open surgery with takedown appendiceal colonic fistula and appendectomy. Will advance to full liquids. Up walking. Start dressing changes. Hernandez catheter now out. Patient states she is voiding normally which include some incontinence which she always has. Positive flatus, but no bowel movement will give 1 dose of MiraLax and a stool softener tonight. 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 Tolerating diet will saline lock IV (3) Hypertension: Qualifiers: Hypertension type: primary hypertension Qualified Code(s): I10 - Essential (primary) hypertension Code(s): I10 - Essential (primary) hypertension Status: Acute Assessment and Plan: All readings today are somewhat elevated. I checked, and patient is back on her usual home meds. Flow saline Onc IV and see if this improves with decrease in pain. Subjective Subjective Date/Time Seen: 04/13/22 17:54 Post Op day: 2 (Status post open interval appendectomy for fistula) Patient reports: feels better, still having pain (Incisional and lower abdominal) and pain is less (Tried Tylenol today) Interval history: Tolerating low-fiber diet Review of Systems Review of Systems: All systems reviewed & are unremarkable except as noted in HPI and below Constitutional: Constitutional: Reports as per HPI, Denies chills and Denies fever(s) Cardiovascular: Cardiovascular: Denies chest pain and Denies dyspnea Respiratory: Respiratory: Reports no additional respiratory complaints and Denies dyspnea Gastrointestinal: Gastrointestinal: Reports as per HPI and Denies bloating Musculoskeletal: Musculoskeletal: Reports no additional musculoskeletal complaints Neurologic: Denies memory loss Psychiatric: Psychiatric: Denies anxiety and Denies memory loss Exam Const: General: cooperative, alert and awake Orientation/consciousness: patient oriented x3 HENMT: Head: normal to inspection Mouth: Yes moist mucous membranes Eyes: Sclera: sclerae normal Pupils: Equal, round and reactive pupils present Neck: Neck: normal visual inspection Chest: Chest palpation & inspection: normal inspection of the chest Resp: Effort & Inspection: normal respiratory effort Auscultation: clear to auscultation bilaterally Cardio: Rate: regular rate GI: Inspection: incision (Dressing clean and dry (not inspected).) and obesity GI Palp: Yes abdominal tenderness (Mild lower abdomen) and Yes Firmness to palpation present (GI) Auscultation: Hypoactive bowel sounds present Neuro: General: patient oriented x3 Cranial nerves: Yes Equal, round and reactive pupils present Objective Data Vital Signs Vital Signs: Vital Signs - 24 hr 04/12/22 20:22 04/12/22 20:00 04/13/22 00:32 Temperature 36.8 C 36.7 C Pulse Rate 101 H 101 H 100 Respiratory Rate 14 14 14 Blood Pressure 153/54 H 154/70 H Pulse Oximetry 97 97 95 Oxygen Delivery Nasal Cannula Oxygen Flow Rate 2 04/13/22 06:03 04/13/22 10:00 04/13/22 12:20 Temperature 36.7 C 36.9 C Pulse Rate 100 99 Respiratory Rate 16 18 Blood Pressure 151/73 H 159/67 H Pulse Oximetry 93 100 Oxygen Delivery Room Air Oxygen Flow Rate 04/13/22 14:00 Temperature 36.8 C Pulse Rate 105 H Respiratory Rate 20 Blood Pressure 179/60 H Pulse Oximetry 100 Oxygen Delivery Oxygen Flow Rate Intake/Output Intake/Output: Intake & Output 04/10/22 04/11/22 04/12/22 04/13/22 23:59 23:59 23:59 23:59 Intake Total 514 4087 7599
[2022-04-13] MEDS: polyethylene glycoL 3350 17 GM POWD.PACK PO (18:32)
[2022-04-13] MEDS: BISACODYL 5 MG TABLET EC PO (18:32)
[2022-04-14] VITALS (7 sets, daily range): BP systolic 151–200; BP diastolic 71–110; PULSE 95–111; RESP 16–20; TEMP 36.5–36.8; O2SAT 95–98
[2022-04-14] MEDS: IBUPROFEN 600 MG TABLET PO ×4 (02:01→20:22)
[2022-04-14 05:43] LABS: Mean Corpuscular HGB Conc 32.1 g/dl (32-36); Mean Corpuscular Hemoglobin 30.2 pg (26-34); Mean Platelet Volume 11.1 fl (7.4-10.4); Platelet Count Result 185 k/mm3 (150-375); Red Blood Count 2.98 M/mm3 (4.2-5.4); Red Cell Distribution Width 14.4 % (11.5-14.5); White Blood Count 7.5 K/mm3 (4.5-10.0)
[2022-04-14 05:52] LABS: Anion Gap 9 mmol/L (8-16); Blood Urea Nitrogen 9 mg/dL (7-17); Calcium 8.1 mg/dL (8.4-10.2); Carbon Dioxide 29 mmol/L (22-30); Chloride 103 mmol/L (98-107); Estimated CRCL calculation 73 ml/min; Estimated Glomerular Filt Rate > 60; Glucose 107 mg/dL (65-110); Potassium 3.6 mmol/L (3.4-5.0); Sodium 141 mmol/L (137-145)
[2022-04-14] MEDS: hydroCHLOROthiazide 12.5 MG CAPSULE PO (08:13)
[2022-04-14] MEDS: PANTOPRAZOLE 40 MG TABLET PO (08:13)
[2022-04-14] MEDS: lisinopriL 20 MG TABLET PO (08:13)
[2022-04-14] MEDS: ASPIRIN 81 MG ENTERIC TABLET PO (08:13)
--- NOTE | 2022-04-14 15:37 | PM.PNGS ---
Progress Note: A&P Assessment and Plan (1) Acute appendicitis with perforation, localized peritonitis, and abscess: Code(s): K35.33 - Acute appendicitis with perforation, localized peritonitis, and gangrene, with abscess Status: Acute Assessment and Plan: Patient doing well postop day 3 after extensive laparoscopic adhesiolysis followed by open surgery with takedown appendiceal colonic fistula and appendectomy. Will advance to soft. Up walking. Hernandez catheter now out. Patient states she is voiding normally which include some incontinence which she always has. Positive flatus, but no bowel movement had 1 dose of MiraLax and a stool softener last night. Talked her about and offered to try suppository today. 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 Tolerating diet But no BM yet. Discussed use of Dulcolax suppository with patient. (3) Hypertension: Qualifiers: Hypertension type: primary hypertension Qualified Code(s): I10 - Essential (primary) hypertension Code(s): I10 - Essential (primary) hypertension Status: Acute Assessment and Plan: All readings today are somewhat elevated. I checked, and patient is back on her usual home meds. Continue to follow and see if this improves with gradual decrease in pain. Patient states she was not checking her blood pressure at home prior to surgery so she could of been high even when on her home meds. Will give order for p.r.n. hydralazine if systolic greater than 160. If this is required frequently could get medicine consult on Friday. Subjective Subjective Date/Time Seen: 04/14/22 15:37 Post Op day: 3 ( continues to improve, moving slowly) Patient reports: no new complaints, voiding w/o difficulty, flatus and no bowel movement Interval history: patient has bad arthritis so has trouble walking. PT helped her today. Encouraged increased activity. Patient willing to take a suppository since she has had no bowel movements. Review of Systems Review of Systems: All systems reviewed & are unremarkable except as noted in HPI and below Constitutional: Constitutional: Reports as per HPI, Denies chills and Denies fever(s) Cardiovascular: Cardiovascular: Denies chest pain and Denies dyspnea Respiratory: Respiratory: Reports no additional respiratory complaints and Denies dyspnea Gastrointestinal: Gastrointestinal: Reports as per HPI and Denies bloating Musculoskeletal: Musculoskeletal: Reports no additional musculoskeletal complaints Neurologic: Denies memory loss Psychiatric: Psychiatric: Denies anxiety and Denies memory loss Exam Const: General: cooperative, alert and awake Orientation/consciousness: patient oriented x3 HENMT: Head: normal to inspection Mouth: Yes moist mucous membranes Eyes: Sclera: sclerae normal Pupils: Equal, round and reactive pupils present Neck: Neck: normal visual inspection Chest: Chest palpation & inspection: normal inspection of the chest Resp: Effort & Inspection: normal respiratory effort Auscultation: clear to auscultation bilaterally Cardio: Rate: regular rate GI: Inspection: incision ( Clean with minor serosanguineous drainage) and obesity GI Palp: Yes abdominal tenderness (Mild lower abdomen) and Yes Soft to palpation Auscultation: normal bowel sounds Other: all trocar sites are clean and dry. Discussed dressing change with nurse. Midline incision only will be redressed. Neuro: General: patient oriented x3 Cranial nerves: Yes Equal, round and reactive pupils present Objective Data Vital Signs Vital Signs: Vital Signs - 24 hr 04/13/22 19:02 04/13/22 20:45 04/13/22 20:00 Temperature 36.8 C 36.7 C Pulse Rate 103 H 99 99 Respiratory Rate 22 H 16 16 Blood Pressure 168/89 H 154/74 H Pulse Oximetry 96 97 97 Oxygen Delivery Room
[2022-04-14] MEDS: hydrALAZINE HCL 20 MG/ML VIAL 10 MG IV PUSH (16:50)
[2022-04-14] MEDS: BISACODYL 10 MG SUPPOSITORY RECTAL (18:38)
--- NOTE | 2022-04-14 22:00 | WPDCN ---
Assessment and Plan Assessment and plan (1) Acute appendicitis with perforation, localized peritonitis, and abscess: Code(s): K35.33 - Acute appendicitis with perforation, localized peritonitis, and gangrene, with abscess Status: Acute Assessment and Plan: Postoperative day 3 status post laparoscopic adhesiolysis with open appendectomy with takedown of appendiceal colonic fistula. Pain is well controlled. Diet is being advanced to a soft diet per surgery. She is passing some gas but continues to have nausea and belching. Stool softener and MiraLax given last evening did not produce results and she received Dulcolax this evening and passed only a small amount of stool. Management per surgery. 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 (3) Hypertension: Qualifiers: Hypertension type: primary hypertension Qualified Code(s): I10 - Essential (primary) hypertension Code(s): I10 - Essential (primary) hypertension Status: Acute Assessment and Plan: Blood pressures have been running high postoperatively despite being back on her home medications last couple of days. Pain certainly could be playing a factor though she reports that she is not in a lot of discomfort. It sounds as though her blood pressures have been running high and in fact she reports that her lisinopril dose was increased not too long ago. At this time her records will be reviewed to make sure she is receiving the correct dosage of her medications. Blood pressures will be trended and adjustments will be made accordingly. Hydralazine available p.r.n. She is asymptomatic with these higher blood pressures. (4) Normocytic anemia: Code(s): D64.9 - Anemia, unspecified Status: Acute Assessment and Plan: Stable postoperatively. (5) GERD (gastroesophageal reflux disease): Qualifiers: Esophagitis presence: without esophagitis Qualified Code(s): K21.9 - Gastro-esophageal reflux disease without esophagitis Code(s): K21.9 - Gastro-esophageal reflux disease without esophagitis Status: Acute Assessment and Plan: Continue PPI. Plan Thank you for allowing us to participate in this patient's care. Please do not hesitate to contact us with any questions. Supervising physician for this medical consultation is Dr. José Luis Arroyo. HPI Data of Consult Date/Time: 04/14/22 22:00 Requesting Physician: Dr. Spike Mahmood. Consult Narrative Reason for consult: Hypertension. Narrative: This is a 76-year-old female with hypertension, hyperlipidemia, and GERD whom the hospitalist service has been consulted for help managing the patient's high blood pressures. The patient Yolanda presented to the emergency department on 02/10/2022 for evaluation of nearly 10 days of abdominal pain and fever with progressive weakness. CT at that time showed a ruptured appendicitis with a large periappendiceal abscess extending into the pelvis. She responded well to percutaneous drainage and IV antibiotics and the catheter was removed in office on 02/21/2022. Plans were made for interval appendectomy to avoid recurrence. On 03/25/2022 Dr. Hanna did a full colonoscopy which was negative aside from diverticulosis. She was admitted to the hospital on 04/11/2022 and underwent performed laparoscopic adhesiolysis, open appendectomy, taken and repair of appendiceal fistula, and right salpingo-oophorectomy per Dr. Post. Her pain has been managed pretty well since surgery. She has not had a good bowel movement since surgery and last night she was given a stool softener and a dose of MiraLax without benefit. A suppository given this evening produced just a small bowel movement. She is tolerating a diet as of yesterday though her appetite is not great and she has mild nausea with belching. She has been back on her home medications for 2 day
[2022-04-15] VITALS (7 sets, daily range): BP systolic 120–174; BP diastolic 64–83; PULSE 90–101; RESP 16–90; TEMP 36.2–37.1; O2SAT 94–96
[2022-04-15] MEDS: IBUPROFEN 600 MG TABLET PO ×4 (03:50→20:46)
[2022-04-15] MEDS: lisinopriL 20 MG TABLET PO ×3 (03:50→17:05)
[2022-04-15 06:42] LABS: Hematocrit 29.4 % (37.0-47.0); Hemoglobin 9.7 g/dL (12.0-15.0); Mean Corpuscular Hemoglobin 30.7 pg (26-34); Mean Platelet Volume 11.2 fl (7.4-10.4); Platelet Count Result 201 k/mm3 (150-375); Red Blood Count 3.16 M/mm3 (4.2-5.4); Red Cell Distribution Width 13.8 % (11.5-14.5); White Blood Count 8.1 K/mm3 (4.5-10.0)
--- NOTE | 2022-04-15 06:46 | ECG_ITS ---
Measurements Intervals [place] Rate: 84 P: 46 SD: 144 QRS: 4 QRSD: 91 T: 15 QT: 387 QTc: 459 Interpretive Statements SINUS RHYTHM BASELINE WANDER- III BORDERLINE ECG COMPARED TO ECG 02/10/2022 16:40:21 NO SIGNIFICANT CHANGES Electronically Signed On 04-15-2022 11:39:52 PNEUMATIC JACK OPERATOR by Bertrand Hudson D.O.
--- NOTE | 2022-04-15 06:52 | PM.PNGS ---
Progress Note: A&P Assessment and Plan (1) Acute appendicitis with perforation, localized peritonitis, and abscess: Code(s): K35.33 - Acute appendicitis with perforation, localized peritonitis, and gangrene, with abscess Status: Chronic Assessment and Plan: still has some tachycardia and elevated blood pressure. Will get EKG. Continue to ambulate. Taking only Tylenol for pain. Overall doing well. 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 Status: Acute Assessment and Plan: Taken down at surgery (3) Tachycardia: Code(s): R00.0 - Tachycardia, unspecified Status: Acute Assessment and Plan: will check EKG (4) Normocytic anemia: Code(s): D64.9 - Anemia, unspecified Status: Acute Assessment and Plan: stable Subjective Subjective Date/Time Seen: 04/15/22 06:52 Post Op day: 4 Patient reports: feels better, pain is less, tolerating a regular diet, no bowel movement and afebrile Exam Const: General: comfortable and no acute distress; No confusion Orientation/consciousness: patient oriented x3 and No confusion GI: Inspection: non-distended and incision ( healing well, dry) GI Palp: Yes Soft to palpation, Yes Tenderness to palpation present (GI) ( MINIMAL TENDERNESS), No Guarding due to palpation present (GI) and No Rebound tenderness present Auscultation: normoactive bowel sounds Neuro: General: patient oriented x3, no focal motor deficits and No confusion Extrem: General: no calf tenderness and no edema Psych: Affect: normal affect Insight: Good insight present (Psych) Judgement: Good judgement present (Psych) Objective Data Vital Signs Vital Signs: Vital Signs - 24 hr 04/14/22 09:26 04/14/22 08:00 04/14/22 16:48 Temperature 36.8 C Pulse Rate 107 H Respiratory Rate Blood Pressure Pulse Oximetry 98 Oxygen Delivery Room Air Room Air 04/14/22 18:13 04/14/22 16:30 04/14/22 20:00 Temperature Pulse Rate 107 H Respiratory Rate 16 Blood Pressure 192/84 H 200/110 H Pulse Oximetry 98 Oxygen Delivery Room Air 04/14/22 22:49 Temperature 36.8 C Pulse Rate 111 H Respiratory Rate 18 Blood Pressure 151/90 H Pulse Oximetry 97 Oxygen Delivery Intake/Output Intake/Output: Intake & Output 04/12/22 04/13/22 04/14/22 04/15/22 23:59 23:59 23:59 23:59 Intake Total 3160 3120 1422 Output Total 725 3680 700 Balance 2433 043 722 Meds/Results Medications: Active Medications Generic Name Dose Route Start Last Admin Trade Name Freq PRN Reason Stop Dose Admin Acetaminophen 500 mg 04/11/22 20:27 04/13/22 14:05 Acetaminophen 500 Mg Tablet PO 500 mg Q6H PRN Administration Mild Pain (1-3) or Fever Hydrocodone Bitart/Acetaminophen 1 tab 04/11/22 20:27 04/12/22 12:12 Hydrocodone/Acetaminophen (*Crx) 5-325 Mg Tablet PO 1 tab Q4H PRN Administration Pain Rated 4-6 Albuterol 2 puff 04/11/22 20:27 Albuterol Sulfate (*Sp) Aerosol 1 Puff INHALATION BID PRN shortness of breath or wheezing Aspirin 81 mg 04/12/22 09:00 04/14/22 08:13 Aspirin 81 Mg Enteric Tablet PO 05/12/22 08:59 81 mg DAILY RL Administration Enoxaparin Sodium 40 mg 04/15/22 09:00 Enoxaparin 40 Mg/0.4 Ml Syringe SUB-Q DAILY RL Fentanyl Citrate 12.5 mcg 04/11/22 20:27 Fentanyl Citrate Inj (*Crx) 100 Mcg/2 Ml Vial IV PUSH Q4H PRN Pain Rated 4-6 Hydralazine HCl 10 mg 04/14/22 15:47 04/14/22 16:50 Hydralazine Hcl 20 Mg/Ml Vial IV PUSH 10 mg Q6H PRN Administration B P - High systolic > 160 Hydrochlorothiazide 12.5 mg 04/12/22 09:00 04/14/22 08:13 Hydrochlorothiazide 12.5 Mg Capsule PO 12.5 mg QAM RL Administration Ibuprofen 600 mg 04/14/22 03:00 04/15/22 03:50 Ibuprofen 600 Mg Tablet PO 600 mg Q6H RL Administration Lisinopril 20 mg 04/14/22 23:35 04/15/22 03:50 Lisinopril 20 Mg Tab
[2022-04-15 06:59] LABS: Anion Gap 5 mmol/L (8-16); Blood Urea Nitrogen 7 mg/dL (7-17); Calcium 8.6 mg/dL (8.4-10.2); Carbon Dioxide 30 mmol/L (22-30); Chloride 98 mmol/L (98-107); Estimated CRCL calculation 84 ml/min; Estimated Glomerular Filt Rate > 60; Glucose 106 mg/dL (65-110); Magnesium 1.5 mg/dL (1.6-2.3); Potassium 3.5 mmol/L (3.4-5.0); Sodium 133 mmol/L (137-145)
[2022-04-15] MEDS: PANTOPRAZOLE 40 MG TABLET PO (08:09)
[2022-04-15] MEDS: ASPIRIN 81 MG ENTERIC TABLET PO (08:09)
[2022-04-15] MEDS: hydroCHLOROthiazide 12.5 MG CAPSULE PO (08:09)
[2022-04-15] MEDS: ENOXAPARIN 40 MG/0.4 ML SYRINGE SUB-Q (08:15)
[2022-04-15] MEDS: HYDROcodone/acetaminophen (*CRX) 5-325 MG TABLET 1 TAB PO (10:37)
[2022-04-15] MEDS: BISACODYL 5 MG TABLET EC 10 MG PO (12:22)
--- NOTE | 2022-04-15 15:22 | PM.IMPN ---
Progress Note: A&P Assessment and Plan (1) Acute appendicitis with perforation, localized peritonitis, and abscess: Code(s): K35.33 - Acute appendicitis with perforation, localized peritonitis, and gangrene, with abscess Status: Chronic Assessment and Plan: Postoperative day 3 status post laparoscopic adhesiolysis with open appendectomy with takedown of appendiceal colonic fistula. Pain is well controlled. Diet is being advanced to a soft diet per surgery. She is passing some gas but continues to have nausea and belching. Stool softener and MiraLax given last evening did not produce results and she received Dulcolax this evening and passed only a small amount of stool. Management per surgery. 04/15/2022 interval history: Postoperative day 4 status post laparoscopic adhesiolysis with open appendectomy with takedown of appendiceal colonic fistula. Pain is well controlled. Diet is being advanced to a soft diet per surgery. She is passing some gas but continues to have nausea and belching. Stool softener and MiraLax given last evening did not produce results and she received Dulcolax on evening of 04/14 and passed only a small amount of stool. 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 (3) Hypertension: Qualifiers: Hypertension type: primary hypertension Qualified Code(s): I10 - Essential (primary) hypertension Code(s): I10 - Essential (primary) hypertension Status: Acute Assessment and Plan: Blood pressures have been running high postoperatively despite being back on her home medications last couple of days. Pain certainly could be playing a factor though she reports that she is not in a lot of discomfort. It sounds as though her blood pressures have been running high and in fact she reports that her lisinopril dose was increased not too long ago. At this time her records will be reviewed to make sure she is receiving the correct dosage of her medications. Blood pressures will be trended and adjustments will be made accordingly. Hydralazine available p.r.n. She is asymptomatic with these higher blood pressures. (4) Normocytic anemia: Code(s): D64.9 - Anemia, unspecified Status: Acute Assessment and Plan: Stable postoperatively. (5) GERD (gastroesophageal reflux disease): Qualifiers: Esophagitis presence: without esophagitis Qualified Code(s): K21.9 - Gastro-esophageal reflux disease without esophagitis Code(s): K21.9 - Gastro-esophageal reflux disease without esophagitis Status: Acute Assessment and Plan: Continue PPI. Plan Thank you for allowing us to participate in this patient's care. Please do not hesitate to contact us with any questions. Supervising physician for this medical consultation is Dr. José Luis Arroyo. Subjective Date/time seen: 04/15/22 15:22 04/15/2022 interval history: Postoperative day 4 status post laparoscopic adhesiolysis with open appendectomy with takedown of appendiceal colonic fistula. Pain is well controlled. Diet is being advanced to a soft diet per surgery. She is passing some gas but continues to have nausea and belching. Stool softener and MiraLax given last evening did not produce results and she received Dulcolax on evening of 04/14 and passed only a small amount of stool. today patient was seen by surgery service had tachycardia and elevated blood pressure, EKG was done no significant changes and patient denies any chest pain or palpitation, patient's home medications are resumed, patient blood pressu
[2022-04-15] MEDS: hydrALAZINE HCL 20 MG/ML VIAL 10 MG IV PUSH (20:45)
[2022-04-16 02:08] VITALS: BP 154/85; PULSE 96; RESP 18; TEMP 36.8; O2SAT 97
[2022-04-16] MEDS: IBUPROFEN 600 MG TABLET PO ×2 (02:56→09:28)
[2022-04-16 06:18] VITALS: BP 168/79; PULSE 96; RESP 18; TEMP 36.6; O2SAT 95
[2022-04-16 06:22] LABS: Hematocrit 29.2 % (37.0-47.0); Hemoglobin 9.6 g/dL (12.0-15.0); Mean Corpuscular HGB Conc 32.9 g/dl (32-36); Mean Corpuscular Hemoglobin 30.2 pg (26-34); Mean Corpuscular Volume 91.8 fl (80-100); Platelet Count Result 223 k/mm3 (150-375); Red Blood Count 3.18 M/mm3 (4.2-5.4); Red Cell Distribution Width 13.8 % (11.5-14.5); White Blood Count 8.8 K/mm3 (4.5-10.0)
--- NOTE | 2022-04-16 07:38 | PM.DS ---
DS: Admitting Diagnosis Discharge Date 04/16/2022 Admitting Diagnosis ruptured appendicitis with abscess 02/10/2022 DS: Discharge Diagnosis Discharge Diagnosis (1) Acute appendicitis with perforation, localized peritonitis, and abscess: Code(s): K35.33 - Acute appendicitis with perforation, localized peritonitis, and gangrene, with abscess Status: Chronic Assessment and Plan: patient underwent laparoscopic adhesiolysis with conversion to open appendectomy on the day of admission 04/11/2022. The right ovary and a small portion of the tube were removed as well. The appendix had formed a fistula from the cecum to the sigmoid colon. 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 Anemic but stable. (4) Hypertension: Qualifiers: Hypertension type: primary hypertension Qualified Code(s): I10 - Essential (primary) hypertension Code(s): I10 - Essential (primary) hypertension Status: Chronic Assessment and Plan: Blood pressure remained elevated in the postoperative phase. This will be monitored postoperatively. DS: Summary Hospital Course Hospital Course: The patient was taken to surgery on the day of admission 04/11/2022. Laparoscopic interval appendectomy was planned. At surgery, there were tremendous right lower quadrant adhesions. These were exceedingly difficult but laparoscopic adhesiolysis was performed. This proceeded for approximately 2 hours. The appendix was found and dissected free from the small intestine in the pelvis. However, the appendix seemed to be attaching itself to another organ. The anatomy was not entirely clear laparoscopic [place]. The procedure was converted to open surgery. It turned out that the appendix had formed a fistula with the sigmoid colon. The patient had had a negative colonoscopy prior to surgery last March. The fistula was taken down and the appendix amputated from both the sigmoid colon and the cecum. What appeared to be the right ovary and tube were intimately involved in the adhesions to the appendix. This had been pretty much devascularized with the dissection. What appeared to be the right ovary and a small portion of the tube were removed. Pathology showed this to be only fallopian tube with a high dad cyst of Morgagni. Patient did well after surgery. Her diet was slowly advanced. Pain control improved and by the last 2 days in the hospital she was only taking Tylenol for pain. Her heart rate remained tachycardic and her blood pressure remained elevated. Hospitalist service was consulted. Patient was on her all her home medications. She was feeling well and desiring to be discharged on 04/16/2022. Her heart rate is now in the 90s. EKG done the day prior to discharge showed only sinus rhythm with no acute changes. She is discharged in improved condition status post interval appendectomy. Status at Discharge Overall status at discharge: patient is progressing back to baseline Time Spent with Patient Time attestation: Total time spent providing and/or coordinating discharge services: Time spent: Less than 30 minutes DS: Data Data Completed and Pending Completed studies during hospitalization: Pending at discharge 04/11/22 17:58 Surgical [PTH] Routine Surgical [PTH] Routine Labs on day of discharge: Labs from last 24 hours 04/16/22 05:31 WBC 8.8 RBC 3.18 L Hgb 9.6 L Hct 29.2 L MCV 91.8 MCH 30.2 MCHC 32.9 RDW 13.8 Plt Count 223 MPV 11.0 H Discharge Plan Discharge At
[2022-04-16] MEDS: PANTOPRAZOLE 40 MG TABLET PO (09:28)
[2022-04-16] MEDS: hydroCHLOROthiazide 12.5 MG CAPSULE PO (09:28)
[2022-04-16] MEDS: lisinopriL 20 MG TABLET PO (09:28)
[2022-04-16] MEDS: ENOXAPARIN 40 MG/0.4 ML SYRINGE SUB-Q (09:28)
[2022-04-16] MEDS: ASPIRIN 81 MG ENTERIC TABLET PO (09:28)
[2022-04-16 10:21] VITALS: O2SAT 98
--- NOTE | 2022-04-16 13:36 | PM.IMPN ---
Progress Note: A&P Assessment and Plan (1) Acute appendicitis with perforation, localized peritonitis, and abscess: Code(s): K35.33 - Acute appendicitis with perforation, localized peritonitis, and gangrene, with abscess Status: Chronic Assessment and Plan: Postoperative day 3 status post laparoscopic adhesiolysis with open appendectomy with takedown of appendiceal colonic fistula. Pain is well controlled. Diet is being advanced to a soft diet per surgery. She is passing some gas but continues to have nausea and belching. Stool softener and MiraLax given last evening did not produce results and she received Dulcolax this evening and passed only a small amount of stool. Management per surgery. 04/16/2022 interval history: Postoperative day 5 status post laparoscopic adhesiolysis with open appendectomy with takedown of appendiceal colonic fistula. Pain is well controlled. Diet is being advanced to a soft diet per surgery. today She is passing, stool softener and MiraLax given last evening did not produce results and she received Dulcolax on evening of 04/14 and passed only a small amount of stool. today patient had a BM, patient blood pressure is trending down stable, on 04/15 patient was seen by surgery service had tachycardia and elevated blood pressure, EKG was done no significant changes and patient denies any chest pain or palpitation, patient's home medications are resumed, patient blood pressure is trending down, today patient clinically stable seen by surgery service and patient is being discharged home. 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 (3) Hypertension: Qualifiers: Hypertension type: primary hypertension Qualified Code(s): I10 - Essential (primary) hypertension Code(s): I10 - Essential (primary) hypertension Status: Chronic Assessment and Plan: Blood pressures have been running high postoperatively despite being back on her home medications last couple of days. Pain certainly could be playing a factor though she reports that she is not in a lot of discomfort. It sounds as though her blood pressures have been running high and in fact she reports that her lisinopril dose was increased not too long ago. At this time her records will be reviewed to make sure she is receiving the correct dosage of her medications. Blood pressures will be trended and adjustments will be made accordingly. Hydralazine available p.r.n. She is asymptomatic with these higher blood pressures. (4) Normocytic anemia: Code(s): D64.9 - Anemia, unspecified Status: Chronic Assessment and Plan: Stable postoperatively. (5) GERD (gastroesophageal reflux disease): Qualifiers: Esophagitis presence: without esophagitis Qualified Code(s): K21.9 - Gastro-esophageal reflux disease without esophagitis Code(s): K21.9 - Gastro-esophageal reflux disease without esophagitis Status: Acute Assessment and Plan: Continue PPI. Plan Thank you for allowing us to participate in this patient's care. Please do not hesitate to contact us with any questions. Supervising physician for this medical consultation is Dr. José Luis Arroyo. Subjective Date/time seen: 04/16/22 13:36 04/16/2022 interval history: Postoperative day 5 status post laparoscopic adhesiolysis with open appendectomy with takedown of appendiceal colonic fistula. Pain is well controlled. Diet is being advanced to a soft diet per surgery. today She is passing, stool softener and MiraLax given last evening did not produce results and she received Dulcolax on evening of 04/14 and passed only a small amount of stool. today patient had a BM, patient blood pressure is trending down stable, on 04/15 patient was seen by surgery service had tachycardia and elevated blood pressure, EKG was done no significant changes and pa
== END 2022-04-16 12:30 | disposition home or self-care (01) | DRG 337 ==
LOC: ANH2MED 20:29
PROVIDERS: Admitting Provider Surgery; PCP Emergency Medicine; Visit Provider Surgery
PROC: 0DTJ4ZZ Resection of Appendix, Percutaneous Endoscopic Approach (ICD-10-PCS; CPT 44970; principal; 2022-04-11 14:15)
DX: K35.33 Acute appendicitis with perforation, localized peritonitis, and gangrene, with abscess (principal); K38.3 Fistula of appendix; K21.9 Gastro-esophageal reflux disease without esophagitis; I10 Essential (primary) hypertension; R00.0 Tachycardia, unspecified; D64.89 Other specified anemias; Z86.73 Personal history of transient ischemic attack (TIA), and cerebral infarction without residual deficits; Z80.0 Family history of malignant neoplasm of digestive organs; Z87.891 Personal history of nicotine dependence; Z79.82 Long term (current) use of aspirin; Z79.899 Other long term (current) drug therapy
CPT/HCPCS: 36415; 80048; 83735; 85027; 88304; 88305; 93005; 97110; 97161; 97530; A9270; J0360; J0690; J1100; J1170; J1200; J1650; J1741; J1885; J2250; J2405; J2704; J2710; J3010; J7030; J7120

== ENCOUNTER 2022-08-09 09:00 | Outpatient (CLI) | payer MEDICARE, SELFPAY ==
--- NOTE | ~2022-08-09 | NM_ITS ---
EXAMINATION: NM kecia stress w perfusion DATE: 08/09/2022 12:16 INDICATION: Tachycardia, unspecified. TECHNIQUE: Rest images were obtained following intravenous administration of 9.4 mCi Tc99m tetrofosmi n (Myoview). The patient was infused intravenously with Lexiscan (regadenoson). Then, 30.8 mCi Tc99m tetrofosmin (Myoview) was administered intravenously, and stress images were obtained. Data was recon structed into short axis and horizontal and vertical long axis SPECT images. Gated SPECT images were also obtained. COMPARISON: Myocardial perfusion imaging 01/23/2018 FINDINGS: There is no definite reversible or fixed perfusion abnormality to suggest ischemia or infar ction. There is no segmental wall motion abnormality. Left ventricular ejection fraction measures > 70%. IMPRESSION: 1. No definite ischemia or infarct. 2. Normal left ventricular ejection fraction measuring >70%. Reviewed, dictated and finalized at location A. 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
--- NOTE | 2022-08-09 09:08 | ECHO_ITS ---
Patient Info Name: Gogo Dickens Age: 76 years : 1945 Gender: Female Ht: 65 in Wt: 220 lbs BSA: 2.18 m2 HR: 83 bpm BP: 132 / 45 mmHg Technical Quality: Good Exam Date: 08/09/2022 9:41 AM Exam Location: [facility] Pulmonary Patient Status: Outpatient Admit Date: 08/09/2022 Staff Ordering Physician: Bertrand Hudson DO [employer] Driver: Yessica Dover RDCS Attending Provider: Rui Braxton MD Referring Physician: Tristan CULVER; Exam Type: CA echo doppler color flow Study Info Indications R06.09 - Other forms of dyspnea Complete two-dimensional, color flow and Doppler transthoracic echocardiogram is performed. Summary 1. Complete two-dimensional, color flow and Doppler transthoracic echocardiogram is performed. 2. Left ventricular chamber dimension is normal. 3. Left ventricular systolic function is normal, estimated at 60-65%. 4. The left ventricular diastolic function is grade I diastolic dysfunction. 5. E/e' 13 is mildly elevated. 6. Left atrial chamber dimension is moderately enlarged. 7. There is trace aortic valve regurgitation. 8. There is mild mitral valve regurgitation. 9. There is trace tricuspid valve regurgitation. 10. No pulmonary hypertension, estimated pulmonary arterial systolic pressure is 20 mmHg. Left Ventricle E/e' 13 is mildly elevated. Left ventricular chamber dimension is normal. Left ventricular systolic function is normal, estimated at 60-65%. The left ventricular diastolic function is grade I diastolic dysfunction. Right Ventricle Right ventricular chamber dimension is normal. Right ventricular systolic function is normal. Left Atria Left atrial chamber dimension is moderately enlarged. Right Atria Right atrial chamber dimension is normal. Aortic Valve The aortic valve is trileaflet. There is no aortic valve stenosis. There is trace aortic valve regurgitation. Pulmonic Valve There is no pulmonic regurgitation. Mitral Valve There is no mitral valve stenosis. There is mild mitral valve regurgitation. Tricuspid Valve There is trace tricuspid valve regurgitation. No pulmonary hypertension, estimated pulmonary arterial systolic pressure is 20 mmHg. Pericardium/Pleural There is no pericardial effusion. Inferior Vena Cava Dilated inferior vena cava with >50% collapse upon inspiration consistent with normal right atrial pressure, 5 mmHg. Aorta The aortic root size at the sinus of Valsalva is normal. Left Ventricular Outflow Tract Name Value Normal LVOT 2D LVOT Diameter 2.0 cm LVOT Doppler LVOT Peak Gradient 5 mmHg LVOT Mean Gradient 3 mmHg LVOT VTI 28 cm LVOT VTI/AV VTI Ratio 0.8 LVOT Stroke Volume 84 ml LVOT CO 5.4 l/min LVOT CI 2.5 l/min/m2 Pulmonic Valve Name Value Normal
--- NOTE | 2022-08-09 09:09 | EST_ITS ---
Patient Info Name: Gogo Dickens Age: 76 years : 1945 Gender: Female Ht: 65 in Wt: 220 lbs BSA: 2.18 m2 HR: 70 bpm BP: 172 / 86 mmHg Heart Rhythm: Sinus Rhythm Exam Date: 08/09/2022 11:14 AM Exam Location: [facility] Stress Patient Status: Outpatient Admit Date: 08/09/2022 Staff Ordering Physician: Bertrand Hudson DO Attending Provider: Rui Braxton MD Exercise Technologist: Delilah Fernandes CT Exercise Physician: Bertrand Hudson DO Exam Type: CA stress kecia w NM Study Info Indications R00.0 - Tachycardia, unspecified Z01.810 - Encounter for preprocedural cardiovascular examination A regadenoson stress test was performed. Summary 1. 1. Negative lexiscan stress test for ischemic ST changes by ECG criteria. 2. 2. Baseline hypertension. 3. 3. Nuclear scan to follow and will be reported separately. Please correlate with it. 4. 4. Patient informed of the above results. Protocol: Lexiscan Stress ECG Details Stage: REST Duration (min): 5 min : 54 sec HR (bpm): 71 SBP (mmHg): 172 DBP (mmHg): 86 Stage: REST Duration (min): 6 min : 12 sec HR (bpm): 66 SBP (mmHg): 172 DBP (mmHg): 86 Stage: REST Duration (min): 7 min : 20 sec HR (bpm): 70 SBP (mmHg): 172 DBP (mmHg): 86 Stage: STAGE 1 Duration (min): 0 min : 59 sec HR (bpm): 99 SBP (mmHg): 175 DBP (mmHg): 88 Stage: RECOVERY Duration (min): 1 min : 0 sec HR (bpm): 102 SBP (mmHg): 175 DBP (mmHg): 88 Stage: RECOVERY Duration (min): 2 min : 0 sec HR (bpm): 95 SBP (mmHg): 175 DBP (mmHg): 88 Stage: RECOVERY Duration (min): 3 min : 0 sec HR (bpm): 95 SBP (mmHg): 175 DBP (mmHg): 88 Stage: RECOVERY Duration (min): 3 min : 27 sec HR (bpm): 93 SBP (mmHg): 173 DBP (mmHg): 85 Rest HR: 70 bpm Peak HR: 109 bpm Rest Sys BP: 172 mmHg Peak Sys BP: 175 mmHg Max Pred HR: 146 bpm % Max Pred HR: 75 % Target HR: 124 bpm Max RPP: 19,075 bpm*mmHg Termination Reason: Completed protocol Cardiac Symptoms: Shortness of breath Total Time: 1 min : 0 sec Rest Zamora BP: 86 mmHg Peak Zamora BP: 88 mmHg Total Dose: 0.4 mg Resting ECG Sinus rhythm, IRBBB. Stress ECG No ST changes. Arrhythmias None. Report Signatures
== END 2022-08-09 09:01 | disposition home or self-care (01) ==
PROVIDERS: PCP Internal Medicine; Visit Provider Emergency Medicine
DX: R00.0 Tachycardia, unspecified (principal); R06.09 Other forms of dyspnea; Z01.810 Encounter for preprocedural cardiovascular examination; I34.0 Nonrheumatic mitral (valve) insufficiency
CPT/HCPCS: 78452; 93017; 93306; A9502; J0280; J2785

== ENCOUNTER 2022-08-16 15:36 | Outpatient (CLI) | payer MEDICARE, SELFPAY ==
[2022-08-16 16:02] LABS: Urine Cotinine NEGATIVE
== END 2022-08-16 15:37 | disposition home or self-care (01) ==
PROVIDERS: PCP Internal Medicine; Visit Provider Orthopaedic Surgery
DX: Z79.899 Other long term (current) drug therapy (principal)
CPT/HCPCS: 80307

== ENCOUNTER → 2022-09-13 11:08 | Outpatient (CLI) | payer MEDICARE, SELFPAY ==
--- NOTE | ~2022-09-13 | XR_ITS ---
EXAMINATION: XR chest 2V 09/13/2022 11:20 INDICATION: Asthma. Hypertension. PROCEDURE: 2 view chest COMPARISON: Comparison to multiple prior studies sequentially, with oldest reviewed study dated 02/27. FINDINGS: The lungs are clear. The cardiomediastinal silhouette is within normal limits. There are no pleural effusions. There is no pneumothorax suspected. IMPRESSION: 1: NO ACUTE CARDIOPULMONARY DISEASE. Reviewed, dictated and finalized at location B.
== END ==
PROVIDERS: PCP Internal Medicine; Visit Provider Internal Medicine
DX: R06.09 Other forms of dyspnea (principal); J45.909 Unspecified asthma, uncomplicated; I10 Essential (primary) hypertension; Z87.891 Personal history of nicotine dependence
CPT/HCPCS: 71046

== ENCOUNTER 2022-10-16 09:53 | Outpatient (CLI) | payer MEDICARE, SELFPAY ==
[2022-10-16 12:31] LABS: Basophils Percent Auto 0.4 % (0.2-1.2); Eosinophils Absolute Auto 0.2 K/mm3 (0-0.3); Eosinophils Percent Auto 2.4 % (0-4.4); Hematocrit 40.3 % (37.0-47.0); Hemoglobin 12.8 g/dL (12.0-15.0); Immature Granulocyte Absolute 0.02 K/mm3 (0.00-0.031); Immature Granulocyte Percent A 0.3 % (0-0.5); Lymphocytes Absolute Auto 2.27 K/mm3 (0.9-3.2); Mean Corpuscular HGB Conc 31.8 g/dl (32-36); Mean Corpuscular Hemoglobin 30.2 pg (26-34); Mean Platelet Volume 11.5 fl (7.4-10.4); Monocytes Absolute Auto 0.8 K/mm3 (0.1-0.6); Monocytes Percent Auto 10.2 % (2.6-8.5); Neutrophils Absolute Auto 4.3 K/mm3 (1.3-6.7); Neutrophils Percent Auto 56.7 % (45.5-73.1); Platelet Count Result 279 k/mm3 (150-375); Red Blood Count 4.24 M/mm3 (4.2-5.4); Red Cell Distribution Width 14.5 % (11.5-14.5); White Blood Count 7.6 K/mm3 (4.5-10.0)
[2022-10-16 12:37] LABS: Albumin Level 4.7 g/dL (3.5-5.1)
[2022-10-16 12:39] LABS: Anion Gap 6 mmol/L (8-16); Blood Urea Nitrogen 24 mg/dL (7-17); Calcium 9.7 mg/dL (8.4-10.2); Carbon Dioxide 36 mmol/L (22-30); Chloride 99 mmol/L (98-107); Estimated Glomerular Filt Rate > 60; Glucose 111 mg/dL (65-110); Potassium 4.8 mmol/L (3.4-5.0); Sodium 141 mmol/L (137-145)
[2022-10-16 12:42] LABS: Urine Cotinine NEGATIVE
== END 2022-10-16 09:54 | disposition home or self-care (01) ==
LOC: ANHSURGERY 09:58
PROVIDERS: Anesthesiology; PCP Internal Medicine; Visit Provider Orthopaedic Surgery
DX: M17.12 Unilateral primary osteoarthritis, left knee (principal); I10 Essential (primary) hypertension; Z01.818 Encounter for other preprocedural examination
CPT/HCPCS: 36415; 80048; 80307; 82040; 85025; 87081

== ENCOUNTER 2022-11-12 01:20 | Day surgery (SDC) | payer MEDICARE, SELFPAY ==
[2022-10-16 10:05] VITALS: BMI 38.2
[2022-10-16 10:40] VITALS: BP 148/69; PULSE 73; RESP 18; TEMP 36.9; O2SAT 98
--- NOTE | 2022-10-16 10:41 | PC.NURSE ---
Report to the Outpatient Waiting Room, entrance under the green pavilion located off [facility], at time ___0830____ on date __11/12/22 . Planned Procedure Time: ___1030 . Time changes happen often and if your time is changed the preop area will call you the afternoon before. - You and your visitor will be asked to self-screen and do not enter if you have any COVID symptoms. - A mask is optional within the hospital at this time. Patients may have clear liquids (water, carbonated beverages, clear teas, apple juice) until 3 hours prior to surgery with a maximum of 20 ounces. - No food from midnight until time of surgery - Infants may have breast milk until 4 hours before surgery, infant formula 6 hours prior to surgery. - Children will be allowed to drink immediately following surgery. If applicable, please bring a bottle or sippy cup to assist with drinking. Juice, water, soda, and popsicles are readily available. For infants on formula, please bring formula the day of surgery. Pacifiers are allowed. Take the following medications with a SIP of water the morning of surgery: NONE DO NOT STOP ANY OF YOUR OTHER PRESCRIPTION MEDICATIONS PRIOR TO SURGERY ?EXCEPT THE FOLLOWING Medications to discontinue per physician _PT STATES HOLD VITAMINS,__ASPIRIN AND DICLOFENAC__7 DAYS PRE OP PER DR ASTORGA .LAST DOSE11/04/22 TOTAL JOINT CLASS 11/06/22 Please no make-up, nail macedonian, hairspray, perfume, deodorant, or body powder the day of surgery. No jewelry (including any body piercings) or valuables the day of surgery, leave them at home. Please take a shower or bath the night before, or the morning of, surgery with an antibacterial soap. Wear comfortable, loose fitting clothing. Children are encouraged to wear pajamas. - Jewelry must be removed prior to entering the operating room. Rings and piercings that are not removed may be cut off. - The hospital will not accept responsibility for valuables. - Please leave all valuables, including medications, at home the day of surgery. If you are going home after surgery, a licensed dolly driver must drive you home. - NO public transportation without another adult if you receive anesthesia. - We recommend that an adult stay with you for 24 hours following discharge. - We also recommend that you do not drive, make important decision, drink alcoholic beverages, or take any drugs that were not prescribed by your health care provider for at least 24 hours after your discharge time. For Pediatric surgeries, we recommend two adults accompany the child home. Follow any additional instructions given to you from your surgeon. If you or anyone in your household have experienced Covid symptoms in the past week, please notify your surgeon or the nurse liaison at the phone number below for possible testing. VERBAL AND WRITTEN instructions given to ___PATIENT AND SPOUSE LARRY and asked if any additional questions and then verbalized understanding. Patient advised to call surgeon office or pre surgery nurse liaison [phone] if any additional questions.
[2022-11-12] VITALS (12 sets, daily range): BP systolic 117–144; BP diastolic 55–69; PULSE 67–94; RESP 13–20; TEMP 36.8–37.2; O2SAT 96–100
--- NOTE | ~2022-11-12 | XR_ITS ---
EXAMINATION: [id number] DATE: 11/12/2022 13:47 INDICATION: Left knee arthroplasty. Postop. TECHNIQUE: 2 views of left knee were obtained. COMPARISON: None. FINDINGS: There is a total left knee arthroplasty with patellar resurfacing in near-anatomic alignmen t. No fracture. There is gas in the joint and soft tissues, consistent with recent surgery. IMPRESSION: 1. Total left knee arthroplasty in near-anatomic alignment. Reviewed, dictated and finalized at location A.
--- NOTE | 2022-11-12 07:14 | WPDHPUPDATE1 ---
History and Physical Update Update Date/Time: 11/12/22 07:14 History and Physical has been reviewed, including an updated exam of the patient. There are NO changes in the patient's condition. Risks, benefits, and alternatives have been discussed and questions answered. Patient agrees to proceed with procedure.
--- NOTE | 2022-11-12 08:19 | WPDANESEPPF ---
Anes - Initial Pre Proc Eval Procedure: Operation Date: 11/12/22 10:30 Proposed Procedures p Left Custom Total Knee Arthroplasty - Darryl Vega MD Date/Time: 11/12/22 08:19 Surgeon: Darryl Vega MD Pre Op Diagnosis: primary oa left knee Patient Data Age: 77 Gender: F Height: 1.65 m Weight: 104.4 kg Last Vital Signs Temp 36.9 C 10/16/22 10:40 Pulse 73 10/16/22 10:40 Resp 18 10/16/22 10:40 BP 148/69 H 10/16/22 10:40 Pulse Ox 98 10/16/22 10:40 O2 Del Method Room Air 10/16/22 10:40 Allergies Allergy/AdvReac Type Severity Reaction Status Date / Time Penicillins Allergy Intermediate Rash Verified 11/08/22 10:17 Home Medications Medication Instructions Recorded Confirmed Type aspirin 81 mg tablet 81 mg PO DAILY 04/22/19 11/12/22 History albuterol sulfate 90 mcg/actuation 2 puff inhalation BID PRN 02/08/22 10/16/22 Rx aerosol inhaler (ProAir HFA) shortness of breath or wheezing #8.5 grams multivitamin 1 tablet PO DAILY 04/03/22 11/12/22 History acetaminophen 500 mg tablet 500 mg PO Q6H PRN Mild Pain (1-3) 04/16/22 11/12/22 Rx Or Fever #100 tabs lisinopril 20 mg tablet See Rx Instructions .Route 06/24/22 11/12/22 Rx .COMPLEX #90 tabs lisinopril 20 1 tablet PO DAILY #90 tabs 06/26/22 11/12/22 Rx mg-hydrochlorothiazide 12.5 mg tablet cholecalciferol (vitamin D3) 50 See Rx Instructions .Route 07/25/22 11/12/22 Rx mcg (2,000 unit) tablet .COMPLEX #90 tabs omeprazole 20 mg capsule,delayed See Rx Instructions .Route 08/07/22 11/12/22 Rx release .COMPLEX #30 caps rosuvastatin 10 mg tablet See Rx Instructions .Route 08/07/22 11/12/22 Rx .COMPLEX #30 tabs diclofenac sodium 75 mg 75 mg PO BID #60 tabs 10/25/22 Rx tablet,delayed release Patient hx anesthesia problems: post op nausea/vomiting Family hx anesthesia problems: none Results Review: All pre-operative results and documents have been reviewed as part of the pre-operative evaluation. [facility] Past Medical History Medical History (Updated 11/12/22 @ 08:20 by César Pritchett DO) Asthma GERD (gastroesophageal reflux disease) Gout History of TIA (transient ischemic attack) x 2 HLD (hyperlipidemia) Normocytic anemia Osteoarthritis Overactive bladder Peripheral edema PONV (postoperative nausea and vomiting) Vitamin D deficiency disease Surgical History Surgical History History of arthroscopic knee surgery History of bladder surgery history of implantable pulse generator for overactive bladder, status post removal in 2015, reported postop infection History of colonoscopy last colonoscopy January 2018 with findings of diverticulosis History of partial hysterectomy History of vein stripping S/P laparoscopic appendectomy Lap interval appy on 04/11/22 Family History Family History Mother Family history of malignant neoplasm, Onset Age: 62 Father Carcinoma of colon Social History Social History Social History: Surrogate medical decision maker: Mikel Dickens, spouse. Code status: Full code. Smoking packs per day: 0.5 Smoking cigarettes per day: 10.0 Years smoked: 50 Smoking pack-years: 25.00 Smoking status: Former smoker Tobacco type: cigarettes Second hand tobacco smoke exposure: No Smoking end date: 10/31/21 Additional smoking assessment comments: DENIES ANY FORM OF TOBACCO USE Alcohol intake: current Drinks per week: 2 Alcohol use details: 2 DRINKS PER MONTH Substance use: never Substance use type: does not use Lack of Transportation: No Lack of Food: Never True Current Housing: I Have Housing Concerned About Future Housing: No Difficulty Paying Gas/Electric Bills: No Difficulty Paying for Meds: No 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
[2022-11-12] MEDS: ACETAMINOPHEN 500 MG TABLET 1000 MG PO (09:25)
--- NOTE | 2022-11-12 09:40 | WPDANESPNB ---
Anes - Peripheral Nerve Block Date/Time: 11/12/22 09:40 I have discussed with the patient/family/POA the placement of a peripheral nerve block for post-operative pain management, including associated risks, benefits, complications, and side effects. Alternative methods of post-operative analgesia were detailed. Questions were solicited and answers provided to the satisfaction of the patient/family/POA. Time-Out: A pre-procedural Time-Out was completed immediately before starting the procedure and confirmed: Patient Identification, Site, Procedure, Patient Position and the Availability of Requisite Equipment. Clinical Indications: Acute post-operative pain management requested by the operative surgeon. Nerve Block Insertion Note Anes-nerve block: adductor canal left Patient position: supine Skin prep: chlorhexidine Needle: 22 gauge, stimulating, insulated echogenic needle. Needle length: 80 mm Technique: ultrasound Injectate: bupivacaine 0.5% with epi 5 mcg/ml (30cc - no epi) Observations: tolerated well Complications: none Procedure start time:: 1031 Procedure end time:: 1033
[2022-11-12] MEDS: TRANEXAMIC ACID 1,000MG/ISO100 1,000 MG/100 ML BAG 200 MG IVPB (10:00)
[2022-11-12] MEDS: ceFAZolin 2 GM/D5W 50 ML 2 GM/50 ML BAG IVPB (10:51)
[2022-11-12] MEDS: GENTAMICIN BONE CEMENT REFOBACIN 1 EACH TOPICAL (11:32)
[2022-11-12] MEDS: LACTATED RINGERS 1,000 ML 30 ML IV CONT ×2 (13:29)
[2022-11-12] MEDS: fentaNYL CITRATE INJ (*CRX) 100 MCG/2 ML VIAL 25 MCG IV PUSH ×6 (13:40→14:08)
--- NOTE | 2022-11-12 14:00 | W.PM.PROC2 ---
Procedure Note - Detailed Date of Procedure 11/12/22 Pre-op Diagnosis primary oa left knee Post-op Diagnosis Same Procedure Performed Total knee arthroplasty, left. Surgeon Darryl Vega MD Anesthesia General and Regional (Subsartorial block.) Findings Severe valgus disease. No releases were required. Good bone quality. Standard bony resections according to the preoperative planning. Description of Procedure Preoperative antibiotics were given. The limb was prepped and draped in the usual sterile fashion with a well-padded tourniquet high on the thigh. The limb was exsanguinated and the tourniquet inflated to 300 mmHg. A longitudinal incision was created just medial to the patella. A trivector approach to the knee was performed. Arthrotomy was taken down through the joint capsule. No significant releases were initially taken. The femur was exposed and the F1 jig was applied. The coring tool was used to remove the cartilage for the F2 jig to sit flush with the bone. The jig was pinned and the distal cut carefully taken. Caliper measurements confirmed appropriate bony resections according to the preoperative templated plan. The F4 cutting jig for the femur was applied, at the standard rotation. The AP and anterior chamfer cuts were taken. The F5 jig was applied and the posterior chamfer cuts were taken. The tibia was prepared using the T1 jig, after removing cartilage for the jig contact points. Proper alignment was checked with the alignment dmitriy. The tibia was cut using the T1u guide. Gap balancing was performed. Gap measurements were taken and the knee was trialed. Excellent alignment and soft tissue balancing was confirmed. The posterior cruciate ligament was recessed along the proximal tibia. The patella was cut for resurfacing. Three lug holes were drilled. Meniscal remnants were removed. The trial components were assembled. Excellent range of motion and proper soft tissue balancing were confirmed throughout the full range of motion. Patellar tracking was excellent. The knee was copiously irrigated periodically throughout the procedure. The real implants were cemented into position. Excess cement was carefully removed. The wound was closed in layers with interrupted #1 Vicryl suture, #2 strata fix suture, 2-0 strata fix suture, 3-0 strata fix suture. Steri-Strips placed on the skin with the knee flexed. Sterile bulky dressing applied. The patient was brought to the recovery room in stable condition. There were no complications. Implants [employer] total knee arthroplasty. Cemented. Cruciate retaining. 10 mm insert. 32 mm oval patella. Estimated Blood Loss -50.0 Tourniquet Time 72 Drains No Complications No immediate complications Condition Stable Disposition PACU [facility] Billing Surgery - Charge Forward: Surgery Billing
--- NOTE | 2022-11-12 14:42 | ADMGEN ---
This patient, Gogo Dickens, was admitted to Medical Room 347-. Patient/family oriented to hospital policies and general routines including ID bracelet, bed and alarms, visiting hours, pain management, procedures, bathroom and other care routines, personal items, smoking policy, room service/diet, and visiting hours. Information on how to activate the Rapid Response Team has been discussed. Patient/Family are encouraged to report perceived risks to care and to ask questions if they do not understand what they are told or what they should do.
[2022-11-12] MEDS: oxyCODONE HCL (*CRX) 5 MG TAB IR PO ×2 (16:05→20:16)
[2022-11-12] MEDS: MELOXICAM 7.5 MG TABLET PO (17:45)
[2022-11-12] MEDS: SENNA/DOCUSATE SODIUM TABLET 2 TAB PO (17:45)
[2022-11-12] MEDS: ceFAZolin 1 GM/NS 50 ML 1 GM/50 ML BAG IVPB (17:45)
[2022-11-12] MEDS: PANTOPRAZOLE 40 MG TABLET PO (22:17)
[2022-11-13] MEDS: oxyCODONE HCL (*CRX) 5 MG TAB IR PO ×4 (02:25→16:45)
[2022-11-13] MEDS: predniSONE 5 MG TABLET PO (08:00)
[2022-11-13] MEDS: ceFAZolin 1 GM/NS 50 ML 1 GM/50 ML BAG IVPB (08:13)
[2022-11-13] MEDS: hydroCHLOROthiazide 12.5 MG CAPSULE PO (09:00)
[2022-11-13] MEDS: MULTIVITAMINS THERAPEUTIC TAB (*BKC) 1 TABLET PO (09:00)
[2022-11-13] MEDS: lisinopriL 20 MG TABLET PO (09:00)
[2022-11-13] MEDS: PANTOPRAZOLE 40 MG TABLET PO ×2 (09:00→20:45)
[2022-11-13] MEDS: polyethylene glycoL 3350 17 GM POWD.PACK PO (09:00)
[2022-11-13] MEDS: MELOXICAM 7.5 MG TABLET PO ×2 (09:00→17:00)
[2022-11-13] MEDS: ASPIRIN 81 MG CHEWABLE TABLET PO (09:00)
--- NOTE | 2022-11-13 18:44 | PC.NURSE ---
Paper documentation exists on this patient due to [employer] downtime on 11/13/22 from [id number] to [id number]
[2022-11-13 20:00] VITALS: PULSE 78; RESP 18; O2SAT 97
[2022-11-13 22:08] VITALS: BP 129/48; PULSE 94; RESP 18; TEMP 36.6; O2SAT 100
[2022-11-13] MEDS: oxyCODONE HCL (*CRX) 5 MG TAB IR 10 MG PO (22:22)
[2022-11-14] MEDS: oxyCODONE HCL (*CRX) 5 MG TAB IR 10 MG PO ×3 (04:27→12:38)
[2022-11-14 04:34] VITALS: BP 133/50; PULSE 96; RESP 18; TEMP 36.2; O2SAT 95
[2022-11-14] MEDS: PANTOPRAZOLE 40 MG TABLET PO (08:12)
[2022-11-14] MEDS: MELOXICAM 7.5 MG TABLET PO (08:12)
[2022-11-14] MEDS: hydroCHLOROthiazide 12.5 MG CAPSULE PO (08:12)
[2022-11-14] MEDS: lisinopriL 20 MG TABLET PO (08:12)
[2022-11-14] MEDS: polyethylene glycoL 3350 17 GM POWD.PACK PO (08:12)
[2022-11-14] MEDS: predniSONE 5 MG TABLET PO (08:12)
[2022-11-14] MEDS: MULTIVITAMINS THERAPEUTIC TAB (*BKC) 1 TABLET PO (08:12)
[2022-11-14] MEDS: ASPIRIN 81 MG CHEWABLE TABLET PO (08:13)
[2022-11-14] MEDS: ceFAZolin 1 GM/NS 50 ML 1 GM/50 ML BAG IVPB (08:15)
[2022-11-14 11:38] LABS: Basophils Percent Auto 0.2 % (0.2-1.2); Hematocrit 33.7 % (37.0-47.0); Hemoglobin 10.8 g/dL (12.0-15.0); Immature Granulocyte Absolute 0.04 K/mm3 (0.00-0.031); Immature Granulocyte Percent A 0.3 % (0-0.5); Lymphocytes Absolute Auto 1.38 K/mm3 (0.9-3.2); Lymphocytes Percent Auto 10.7 % (18.3-44.2); Mean Corpuscular Hemoglobin 31.1 pg (26-34); Mean Corpuscular Volume 97.1 fl (80-100); Mean Platelet Volume 10.8 fl (7.4-10.4); Monocytes Absolute Auto 1.1 K/mm3 (0.1-0.6); Monocytes Percent Auto 8.5 % (2.6-8.5); Neutrophils Absolute Auto 10.4 K/mm3 (1.3-6.7); Neutrophils Percent Auto 80.3 % (45.5-73.1); Platelet Count Result 254 k/mm3 (150-375); Red Blood Count 3.47 M/mm3 (4.2-5.4); Red Cell Distribution Width 14.1 % (11.5-14.5); White Blood Count 12.9 K/mm3 (4.5-10.0)
[2022-11-14 11:39] LABS: Anion Gap 5 mmol/L (8-16); Blood Urea Nitrogen 20 mg/dL (7-17); Calcium 8.1 mg/dL (8.4-10.2); Carbon Dioxide 28 mmol/L (22-30); Chloride 101 mmol/L (98-107); Estimated CRCL calculation 72 ml/min; Estimated Glomerular Filt Rate > 60; Glucose 115 mg/dL (65-110); Potassium 4.1 mmol/L (3.4-5.0); Sodium 134 mmol/L (137-145)
[2022-11-14] MEDS: SENNA/DOCUSATE SODIUM TABLET 2 TAB PO (12:38)
--- NOTE | 2022-11-14 16:36 | PM.DS ---
DS: Admitting Diagnosis Discharge Date 11/14/22 Admitting Diagnosis Date of Procedure 11/12/22 Pre-op Diagnosis primary oa left knee Post-op Diagnosis Same Procedure Performed Total knee arthroplasty, left. DS: Discharge Diagnosis Discharge Diagnosis (1) Status post total knee replacement, left: Code(s): Z96.652 - Presence of left artificial knee joint Status: Acute DS: Summary Hospital Course Reason for hospitalization: Total knee arthroplasty. Hospital Course: Tolerated surgery well. Progressed appropriately with therapy. Status at Discharge Functional status at discharge: uses cane/walker Overall status at discharge: patient is progressing back to baseline Time Spent with Patient Time attestation: Total time spent providing and/or coordinating discharge services: Exam Const: General: no acute distress Resp: Effort & Inspection: normal respiratory effort Skin: Other: Wound healing well. Mepilex dressing intact. No hematoma or drainage. Neuro: Motor exam (neuro): 5/5 motor strength present throughout Sensory Exam: normal sensation Psych: Mental Status: mental status grossly normal Speech and movement: Normal speech and movement present DS: Data Data Completed and Pending Labs on day of discharge: Labs from last 24 hours 11/13/22 06:30 WBC 12.9 H RBC 3.47 L Hgb 10.8 L Hct 33.7 L MCV 97.1 MCH 31.1 MCHC 32.0 RDW 14.1 Plt Count 254 MPV 10.8 H Immature Gran % (Auto) 0.3 Neut % (Auto) 80.3 H Lymph % (Auto) 10.7 L [place] % (Auto) 8.5 Eos % (Auto) 0.0 Baso % (Auto) 0.2 Lymph # (Auto) 1.38 [place] # (Auto) 1.1 H Eos # (Auto) 0.0 Baso # (Auto) 0.0 Abs Immat Gran (auto) 0.04 H Absolute Neuts (auto) 10.4 H Absolute Nucleated RBC 0.0 Nucleated RBC % 0.0 Sodium 134 L Potassium 4.1 Chloride 101 Carbon Dioxide 28 Anion Gap 5 L BUN 20 H Creatinine 0.70 Estim Creat Clear Calc 72 Estimated GFR > 60 Glucose 115 H Calcium 8.1 L Discharge Plan Discharge Patient Disposition: Home, Self-Care Discharge Instructions: See instruction sheet. Stand Alone Forms: General Discharge Instructions Follow-up/Referrals: Darryl Vega MD [Physician] - Discharge Medications: New meloxicam 7.5 mg tablet 7.5 mg PO .twice daily Qty: 60 0RF oxycodone-acetaminophen 5-325 mg tablet 1 - 2 tablet PO Q4-6H MDD 6 tablets PRN (Reason: pain) Qty: 30 0RF prednisone 5 mg tablet 5 mg PO DAILY Qty: 10 0RF Continued aspirin 81 mg tablet 81 mg PO DAILY multivitamin Tablet 1 tablet PO DAILY acetaminophen 500 mg Tablet 500 mg PO Q6H PRN (Reason: Mild Pain (1-3) Or Fever) Qty: 100 0RF albuterol sulfate [ProAir HFA] 90 mcg/actuation HFA aerosol inhaler 2 puff INHALATION BID PRN (Reason: shortness of breath or wheezing) Qty: 8.5 2RF lisinopril 20 mg tablet See Rx Instructions .ROUTE .COMPLEX Qty: 90 1RF Dose Instruction: TAKE 1 TABLET BY MOUTH DAILY Rx Instructions: TAKE 1 TABLET BY MOUTH DAILY lisinopril-hydrochlorothiazide 20-12.5 mg tablet 1 tablet PO DAILY Qty: 90 2RF cholecalciferol (vitamin D3) 50 mcg (2,000 unit) tablet See Rx Instructions .ROUTE .COMPLEX Qty: 90 2RF Dose Instruction: TAKE 1 TABLET BY MOUTH EVERY DAY Rx Instructions: TAKE 1 TABLET BY MOUTH EVERY DAY rosuvastatin 10 mg tablet See Rx Instructions .ROUTE .COMPLEX Qty: 30 0RF Dose Instruction: TAKE 1 TABLET BY MOUTH EVERY DAY Rx Instructions: TAKE 1 TABLET BY MOUTH EVERY DAY omeprazole 20 mg capsule,delayed release(DR/EC) See Rx Instructions .ROUTE .COMPLEX Qty: 30 0RF Dose Instruction: TAKE 1 CAPSULE BY MOUTH EVERY DAY Rx Instructions: TAKE 1 CAPSULE BY MOUTH EVERY DAY Discontinued diclofenac sodium 75 mg tablet,delayed release (DR/EC) 75 mg PO BID Qty: 60 2RF Quality VTE Prophylaxis VTE prophylaxis: mechanical ordered (PALLAVI whitt and TREVs)
== END 2022-11-14 12:59 | disposition home or self-care (01) ==
LOC: ANHSURGERY 08:40 → ANH3MED 14:25
PROVIDERS: PCP Nurse Practitioner Family; Visit Provider Orthopaedic Surgery
PROC: (CPT 27447; principal; 2022-11-12 10:30)
DX: M17.12 Unilateral primary osteoarthritis, left knee (principal); G89.18 Other acute postprocedural pain; J45.909 Unspecified asthma, uncomplicated; E78.5 Hyperlipidemia, unspecified; K21.9 Gastro-esophageal reflux disease without esophagitis; E55.9 Vitamin D deficiency, unspecified; Z86.73 Personal history of transient ischemic attack (TIA), and cerebral infarction without residual deficits; Z79.82 Long term (current) use of aspirin; Z79.51 Long term (current) use of inhaled steroids; Z87.891 Personal history of nicotine dependence; E66.9 Obesity, unspecified; Z68.39 Body mass index [BMI] 39.0-39.9, adult
CPT/HCPCS: 27447; 64447; 36415; 73560; 80048; 80307; 82040; 85025; 86850; 86900; 86901; 87081; 97110; 97116; 97161; 97165; 97530; 97535; A9270; C1713; C1776; J0171; J0690; J1100; J1885; J2250; J2270; J2405; J2704; J2795; J3010; J7120; J7512

== ENCOUNTER → 2022-12-23 12:58 | Outpatient (CLI) | payer MEDICARE, SELFPAY ==
--- NOTE | ~2022-12-23 | MM_ITS ---
EXAMINATION: MM screening [facility] BI w marcus HISTORY: Screening mammogram TECHNIQUE: Craniocaudal and mediolateral oblique 3-D tomosynthesis images were obtained and synthetic 2-D images were generated. CAD analysis was submitted and interpreted. COMPARISON: 03/16/2021, 02/23/2019, 01/14/2019, 07/15/2014 BREAST PARENCHYMAL COMPOSITION: There are scattered areas of fibroglandular density. FINDINGS: No suspicious mass, calcification, or architectural distortion are identified in either danielle ast to suggest malignancy. There has been no suspicious interval change. IMPRESSION: 1. No mammographic evidence of malignancy. 2. Recommend routine screening mammography in one year. BI-RADS Category 1: Negative Reviewed, dictated and finalized at location A.
--- NOTE | ~2022-12-23 | DEXA_ITS ---
Bone Density Report Name: DASHA FERRARI Age: 77 Sex: Female Ethnicity: White Date of : 1945 Indication: postmenopausal; screening for osteoporosis; height loss; asthma or emphysema; hysterectomy; Referring Provider: RADHA ARCHER Study: Bone densitometry was performed. Exam Date: December 23, 2022 Accession number: [id number] Bone Density: Region BMD T-score Z-score Classification AP Spine (L1-L4) 1.174 1.2 3.6 Normal Femoral Neck (Left) 0.767 -0.7 1.3 Normal Total Hip (Left) 0.918 -0.2 1.6 Normal Femoral Neck (Right) 0.827 -0.2 1.9 Normal Total Hip (Right) 0.980 0.3 2.1 Normal Total Hip Mean 0.949 0.1 1.9 Normal World Health Organization criteria for BMD impression classify patients as: Normal (T-score at or above -1.0), Osteopenia (T-score between -1.0 and -2.5), or Osteoporosis (T-score at or below -2.5). 10-year Fracture Risk: FRAX not reported because: All T-scores for Spine Total, Hip Total, Femoral Neck at or above -1.0 Previous Exams: Region Exam Age BMD T-score BMD Change BMD Change Date g/cm2 vs Baseline vs Previous AP Spine(L1-L4) 12/23/2022 77 1.174 1.2 0.008 0.008 07/15/2014 68 1.166 1.1 Total Hip(Left) 12/23/2022 77 0.918 -0.2 -0.120* -0.076* 02/23/2019 73 0.995 0.4 -0.043* -0.043* 07/15/2014 68 1.038 0.8 Total Hip(Right) 12/23/2022 77 0.980 0.3 -0.082* -0.039* 02/23/2019 73 1.018 0.6 -0.043* -0.043* 07/15/2014 68 1.061 1.0 *Denotes significance at 95% confidence level, LSC for AP Spine = 0.022 g/cm2, LSC for Total Hip = 0.027 g/cm2 Clinical Information Provided by Patient: Smokes Has used the following medications: Vitamin D Has the following medical conditions: Asthma or Emphysema, Hysterectomy Patient maximum height was 65 Menopause Age: 42 No regular weight bearing exercise Drinks caffeinated beverages Onset of menses at age 14 Number of children 2 Impression: The patient has normal bone mass. The patient has risk factors, including: smoking. The BMD for the Total Hip(Left) decreased, changing by -0.076 since the last DXA exam. The BMD for the Total Hip(Right) decreased, changing by -0.039 since the last DXA exam. Discussion: BONE DENSITY IS ABOVE THE MINIMUM DESIRABLE LEVEL AT ALL SKELETAL SITES TESTED. This patient?s bone mineral density is above the minimum desirable level (T-score
== END ==
PROVIDERS: PCP Nurse Practitioner Family; Visit Provider Emergency Medicine
DX: Z12.31 Encounter for screening mammogram for malignant neoplasm of breast (principal); M81.0 Age-related osteoporosis without current pathological fracture
CPT/HCPCS: 77063; 77067; 77080

== ENCOUNTER → 2023-05-15 16:06 | Outpatient (CLI) | payer MEDICARE, SELFPAY ==
--- NOTE | ~2023-05-15 | XR_ITS ---
EXAMINATION: XR ankle LT min 3V DATE: 05/15/2023 17:05 INDICATION: Left ankle pain. TECHNIQUE: 4 views of left ankle were obtained. COMPARISON: None. FINDINGS: Pes planus is noted. No fracture. There is moderate midfoot osteoarthritis. There are enthe sophytes at the posterior and plantar aspects of calcaneal tuberosity. IMPRESSION: 1. Pes planus. 2. Moderate midfoot osteoarthritis. Reviewed, dictated and finalized at location A. 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
--- NOTE | ~2023-05-15 | XR_ITS ---
EXAMINATION: XR_[id number]_CR DATE: 05/15/2023 17:05 INDICATION: Left ankle and foot pain. TECHNIQUE: 4 views of left foot including weightbearing views were obtained. COMPARISON: None. FINDINGS: Pes planus is noted. There are changes of bunionectomy. There is an old healed fracture of head of third metatarsal. There are likely changes of resection of head of fifth proximal phalanx. Th ere is mild osteoarthritis of first metatarsophalangeal joint. There is mild to moderate osteoarthrit is of some of the midfoot joints. There are enthesophytes at the posterior and plantar aspects of rene caneal tuberosity. IMPRESSION: 1. Pes planus. 2. Polyarticular osteoarthritis. Reviewed, dictated and finalized at location A. OR ECONOMIST
== END ==
PROVIDERS: PCP Podiatrist Foot & Ankle Surgery; Visit Provider Nurse Practitioner Family
DX: M19.072 Primary osteoarthritis, left ankle and foot (principal)
CPT/HCPCS: 73610; 73630

== ENCOUNTER 2023-09-11 10:36 | Outpatient (CLI) | payer MEDICARE, SELFPAY ==
--- NOTE | ~2023-09-11 | CT_ITS ---
Non-contrast CT scan of the Abdomen and Pelvis Clinical indication: Abdominal hernia Technique: 2.5 mm axial scans were obtained through the abdomen and pelvis without intravenous or or al contrast. Dose reduction technique was used on this scan by utilizing automated exposure control a nd iterative reconstruction technique. The dose-length product (DLP) was 1321.03 mGy-cm. Findings: Images through the lung bases reveal no abnormalities. There is no evidence of renal or ureteral calculi. The kidneys and the ureters are nondilated. The liver, spleen, pancreas, gallbladder, and right adrenal gland appear normal. 8 mm left adrenal no dule present. There are atherosclerotic calcifications of the aorta. There is no evidence of bowel obstruction. There is a large ventral/umbilical hernia containing the c entral third of the transverse colon. Images through the pelvis were performed. There is no evidence of ascites or lymphadenopathy. Urinary bladder unremarkable. No pelvic mass seen. Impression: Large ventral/umbilical hernia containing the central third of the transverse colon. No bowel obstruc tion or bowel wall thickening. 8 mm left adrenal nodule, indeterminate, though likely adenoma. Reviewed, dictated and finalized at [facility]. Impression: Large ventral/umbilical hernia containing the central third of the transverse c olon. No bowel obstruction or bowel wall thickening. 8 mm left adrenal nodule, indeterminate, though likely adenoma.
== END 2023-09-11 10:37 | disposition home or self-care (01) ==
PROVIDERS: PCP Nurse Practitioner Family; Visit Provider Nurse Practitioner Family
DX: K46.9 Unspecified abdominal hernia without obstruction or gangrene (principal); D35.02 Benign neoplasm of left adrenal gland; K42.9 Umbilical hernia without obstruction or gangrene
CPT/HCPCS: 74176

== ENCOUNTER 2024-06-01 09:05 | Outpatient (CLI) | payer MEDICARE, SELFPAY ==
--- NOTE | ~2024-06-01 | MM_ITS ---
EXAMINATION: MM screening derrick BI w marcus HISTORY: Screening mammogram, family history of breast cancer in her sister. TECHNIQUE: Craniocaudal and mediolateral oblique 3-D tomosynthesis images were obtained and synthetic 2-D images were generated. CAD analysis was submitted and interpreted. COMPARISON: 12/23/2022, 03/16/2021 BREAST PARENCHYMAL COMPOSITION:Not Dense. There are scattered areas of fibroglandular density. FINDINGS: No suspicious mass, calcification, or architectural distortion are identified in either danielle ast to suggest malignancy. There has been no suspicious interval change. IMPRESSION: No mammographic evidence of malignancy. Recommend routine screening mammography in one year. BI-RADS Category 1: Negative Reviewed, dictated and finalized at location . NG DRAFTER
== END 2024-06-01 09:06 | disposition home or self-care (01) ==
LOC: MICIMG 09:05
PROVIDERS: PCP Nurse Practitioner Family; Visit Provider Nurse Practitioner Family
DX: Z12.31 Encounter for screening mammogram for malignant neoplasm of breast (principal)
CPT/HCPCS: 77063; 77067

== ENCOUNTER 2024-09-24 11:50 | Outpatient (CLI) | payer MEDICARE, SELFPAY ==
--- OUTSIDE RECORDS SUMMARY | 2024-09-24 12:04 | XMS_ITS | Clinical Summary ---
Author Organization [facility] Address [id number] [place] [id number] Care Team Providers Care Bottle Capper Name Role Phone Unavailable Primary Care Provider Unavailabl e Allergies Active Allergy Reactions Criticality Noted Date Comments Penicillins Rash Low 10/24/2023 Medications omeprazole (PriLOSEC) 20 mg Capsule, Delayed Release(E.C.) Take 20 mg by mouth daily. Active rosuvastatin (CRESTOR) 10 mg tablet Take 10 mg by mouth daily. Active lisinopril-hydro CHLOROthiazide (ZESTORETIC) 20-12.5 mg tablet Take 1 Tablet by mouth daily. Active lisinopriL (PRINIVIL) 20 mg tablet Take 20 mg by mouth daily. Active Encounters Date Type Department Care Team Description 08/18/2024 External Device Data [facility]STRACTION Provider, Abstract 08/07/2024 External Device Data [facility] ABSTRACTION Provider, Abstract 08/06/2024 External Device Data [facility] ABSTRACTION Provider, Abstract 08/03/2024 External Device Data [facility]STRACTION Provider, Abstract 07/20/2024 External Device Data [facility] ABSTRACTION Provider, Abstract from Last 3 Months Social History Tobacco Use Types Packs/Day Years Used Date Smoking Tobacco: Never Tobacco Cessation:Counseling Given: Not Answered Feeling Safe Answer Date Recorded Are you in a relationship wi th someone who hurts you emotionally and/or physically? No 10/24/2023 Comments No Sex and Gender Information Value Date Recorded Sex Assigned at Not on file Legal Sex Female 8:41 AM CDT Gender Identity Not on file Sexual Orientation Not on file Last Filed Vital Signs Vital Sign Reading Time Taken Comments Blood Pressure 135/76 10/24/2023 11:02 AM CDT Pulse 67 10/24/2023 11:02 AM CDT Temperature 36 C (96.8 F) 10/24/2023 10:45 AM CDT Respiratory Rate 18 10/24/2023 11:02 AM CDT Oxygen Saturation 97% 10/24/2023 11:02 AM CDT Inhaled Oxygen Concentration - - Weight 113.4 kg (250 lb) 10/24/2023 10:05 AM CDT Height 165.1 cm (5' 5 ) 10/24/2023 10:05 AM CDT Body Mass Index 41.6 10/24/2023 10:05 AM CDT Plan of Treatment Health Maintenance Due Date Last Done Comments DTAP/TDAP/TD VACCINES (1 - Tdap) 10/30/1966 PNEUMOCOCCAL VACCINE 50+ YEARS (1 of 1 - PCV) 10/30/18 98 ZOSTER VACCINE (1 of 2) 10/30/1997 OSTEOPOROSIS SCREENING 10/30/2012 RSV VACCINE (60+ or ) (1 - 1-dose 75+ series) 10/30/2022 INFLUENZA VACCINE (#1) 2024 Insurance [employer] Advance Directives For more information, please contact: [phone] * Full Code (Latest Code Status on File) Date Activated Date Inactivated Comments 10/24/2023 10:29 AM 10/24/2023 1:30 PM
--- NOTE | 2024-09-24 13:26 | ECG_ITS ---
Test Date: 2024-09-24 13:43:34 Measurements Intervals [place] Rate: 68 P: 140 WY: 176 QRS: -18 QRSD: 76 T: -11 QT: 376 QTc: 402 Interpretive Statements SINUS RHYTHM WITH SINUS ARRHYTHMIA POSSIBLE LEFT ATRIAL ENLARGEMENT LOW QRS VOLTAGE IN PRECORDIAL LEADS ANTERIOR INFARCT, AGE INDETERMINATE BORDERLINE T WAVE ABNORMALITY- INFERIOR LEADS BASELINE ARTIFACT- I, II, III, AVR, AVL, AVF, V3-V6 ABNORMAL ECG No previous ECG available for comparison Electronically Signed On 09-24-2024 14:23:36 CDT by Bertrand Hudson D.O.
[2024-09-24 13:57] LABS: Basophils Percent Auto 0.5 % (0.2-1.2); Eosinophils Absolute Auto 0.2 K/mm3 (0-0.3); Eosinophils Percent Auto 2.6 % (0-4.4); Hemoglobin 12.6 g/dL (12.0-15.0); Immature Granulocyte Absolute 0.02 K/mm3 (0.00-0.031); Immature Granulocyte Percent A 0.2 % (0-0.5); Lymphocytes Percent Auto 30.8 % (18.3-44.2); Mean Corpuscular HGB Conc 31.5 g/dl (32-36); Mean Corpuscular Hemoglobin 30.1 pg (26-34); Mean Corpuscular Volume 95.5 fl (80-100); Mean Platelet Volume 10.8 fl (7.4-10.4); Monocytes Absolute Auto 0.7 K/mm3 (0.1-0.6); Monocytes Percent Auto 8.5 % (2.6-8.5); Neutrophils Absolute Auto 4.7 K/mm3 (1.3-6.7); Neutrophils Percent Auto 57.4 % (45.5-73.1); Platelet Count Result 263 k/mm3 (150-375); Red Blood Count 4.19 M/mm3 (4.2-5.4); Red Cell Distribution Width 14.3 % (11.5-14.5); White Blood Count 8.1 K/mm3 (4.5-10.0)
[2024-09-24 14:05] LABS: Albumin Level 4.6 g/dL (3.5-5.1)
[2024-09-24 14:07] LABS: Anion Gap 7 mmol/L (4-12); Blood Urea Nitrogen 25 mg/dL (7-17); Calcium 9.4 mg/dL (8.4-10.2); Carbon Dioxide 31 mmol/L (22-30); Chloride 100 mmol/L (98-107); Estimated Glomerular Filt Rate > 60; Glucose 93 mg/dL (65-110); Potassium 4.1 mmol/L (3.4-5.0); Sodium 138 mmol/L (137-145)
[2024-09-24 14:34] LABS: Urine Cotinine NEGATIVE
[2024-09-24 14:53] LABS: Hemoglobin A1C 5.5 % (<5.7)
[2024-09-24 15:12] LABS: MRSA (PCR) NOT DETECTED (NOT DETECTE)
== END 2024-09-24 11:51 | disposition home or self-care (01) ==
LOC: ANHSURGERY 11:58
PROVIDERS: Anesthesiology; PCP Nurse Practitioner Family; Visit Provider Orthopaedic Surgery
DX: M17.11 Unilateral primary osteoarthritis, right knee (principal); Z01.818 Encounter for other preprocedural examination; Z79.899 Other long term (current) drug therapy
CPT/HCPCS: 36415; 80048; 80307; 82040; 83036; 85025; 87641; 93005

== ENCOUNTER 2024-10-07 08:54 | Outpatient (CLI) | payer MEDICARE, SELFPAY ==
--- NOTE | ~2024-10-07 | NM_ITS ---
EXAMINATION: NM kecia stress w perfusion DATE: 10/07/2024 11:36 INDICATION: Other forms of dyspnea TECHNIQUE: Rest images were obtained following intravenous administration of 10.1 mCi Tc99m tetrofosm in (Myoview). The patient was infused intravenously with Lexiscan (Regadenoson). Then, 31 mCi Tc99m t etrofosmin (Myoview) was administered intravenously, and stress images were obtained. Data was recons tructed into short axis and horizontal and vertical long axis SPECT images. Gated SPECT images were a lso obtained. COMPARISON: None. FINDINGS: There is no definite reversible or fixed perfusion abnormality to suggest ischemia or infar ction. There is normal left ventricular chamber size, wall motion and ejection fraction. Left ventr icular ejection fraction measures >70%. IMPRESSION: 1. Normal myocardial perfusion at rest and during stress. 2. Left ventricular ejection fraction measuring >70%. Reviewed, dictated and finalized at location A.
--- NOTE | 2024-10-07 09:06 | EST_ITS ---
Patient Info Name: Gogo Dickens Age: 78 years : 1945 Gender: Female Ht: 63 in Wt: 216 lbs BSA: 2.14 m2 Exam Date: 10/07/2024 10:28 AM Exam Location: Echo Lab Patient Status: Outpatient Admit Date: 10/07/2024 Staff Ordering Physician: Bertrand Hudson DO Attending Provider: Bertrand Hudson DO Exercise Technologist: Yessica Dover RDCS Exercise Physician: Bertrand Hudson DO Exam Type: CA stress kecia w NM Study Info Indications R06.09 - Other forms of dyspnea Z01.810 - Encounter for preprocedural cardiovascular examination A regadenoson stress test was performed. Summary 1. 1. Negative lexiscan stress test for ischemic ST changes by ECG criteria. 2. 2. Stable hemodynamics throughout the test. 3. 3. Nuclear scan to follow and will be reported separately. Please correlate with it. 4. 4. Patient informed of the above results. Protocol: Lexiscan Stress ECG Details Stage: REST Duration (min): 0 min : 54 sec HR (bpm): 68 SBP (mmHg): 133 DBP (mmHg): 71 Stage: REST Duration (min): 8 min : 24 sec HR (bpm): 69 SBP (mmHg): 133 DBP (mmHg): 71 Stage: STAGE 1 Duration (min): 0 min : 59 sec HR (bpm): 99 SBP (mmHg): 133 DBP (mmHg): 71 Stage: RECOVERY Duration (min): 1 min : 0 sec HR (bpm): 93 SBP (mmHg): 172 DBP (mmHg): 69 Stage: RECOVERY Duration (min): 2 min : 0 sec HR (bpm): 88 SBP (mmHg): 172 DBP (mmHg): 69 Stage: RECOVERY Duration (min): 3 min : 0 sec HR (bpm): 80 SBP (mmHg): 140 DBP (mmHg): 67 Stage: RECOVERY Duration (min): 3 min : 6 sec HR (bpm): 80 SBP (mmHg): 140 DBP (mmHg): 67 Rest HR: 69 bpm Peak HR: 108 bpm Rest Sys BP: 133 mmHg Peak Sys BP: 172 mmHg Max Pred HR: 144 bpm % Max Pred HR: 75 % Target HR: 122 bpm Max RPP: 18,576 bpm*mmHg Termination Reason: Completed protocol Cardiac Symptoms: Shortness of breath, Nausea Total Time: 1 min : 0 sec Rest Zamora BP: 71 mmHg Peak Zamora BP: 69 mmHg Total Dose: 0.4 mg Resting ECG Sinus rhythm. Stress ECG No ST changes. Arrhythmias None. Report Signatures
--- OUTSIDE RECORDS SUMMARY | 2024-10-07 09:06 | XMS_ITS | Clinical Summary ---
Author Organization [facility] Address [id number] [place] [id number] Care Team Providers Care Church Official Name Role Phone Unavailable Primary Care Provider [...] 10/30/2022 INFLUENZA VACCINE (#1) 2024 Insurance [facility] Advance Directives For more information, please contact: [phone] * Full Code (Latest Code Status on File) Date Activated Date Inactivated Comments 10/24/2023 10:29 AM 10/24/2023 1:30 PM
== END 2024-10-07 08:55 | disposition home or self-care (01) ==
PROVIDERS: PCP Nurse Practitioner Family; Visit Provider Internal Medicine Cardiovascular Disease
DX: R06.09 Other forms of dyspnea (principal); Z01.810 Encounter for preprocedural cardiovascular examination
CPT/HCPCS: 78452; 93017; A9502; J2785

== ENCOUNTER 2024-10-14 02:51 | Day surgery (SDC) | payer MEDICARE, SELFPAY ==
--- NOTE | 2024-09-24 12:09 | PC.NURSE ---
Addendum entered by Marlena Lundberg RN 09/24/24 13:29: CLARIFICATION LAST DOSE FOR VITAMINS/SUPPLEMENTS- 10/10/24. PT RELAYS UNDERSTANDING. Original Note: Report to the Outpatient Waiting Room, entrance under the green pavilion located off [facility], at time __6:00AM on date ___10/14/24____. Planned Procedure Time: ___7:30AM . Time changes happen often and if your time is changed the preop area will call you the afternoon before. - You and your visitor will be asked to self-screen and do not enter if you have any COVID symptoms. Please call surgeon if you need to reschedule. - A mask is optional within the hospital at this time. Patients may have clear liquids (water, carbonated beverages, clear teas, apple juice) until 3 hours prior to surgery with a maximum of 20 ounces. - No food from midnight until time of surgery and no smoking, or chewing tobacco (or any form of nicotine). No chewing gum, candy or mints. Take only the following medications with a SIP of water on the morning of surgery: NONE DO NOT STOP ANY OF YOUR OTHER PRESCRIPTION MEDICATIONS PRIOR TO SURGERY EXCEPT THE FOLLOWING Hold all vitamins and supplements for 3 days per anesthesiologist. - LAST DOSE HOLD MOUNJARO 10 DAYS PRE-OP PER ANESTHESIA- LAST DOSE 10/03/24 Medications to discontinue per physician ___HOLD ASPIRIN 7 DAYS PRE-OP PER DR ASTORGA Date to take last dose 10/06/24 Please no make-up, nail danish, hairspray, perfume, deodorant, or body powder the day of surgery. No jewelry (including any body piercings) or valuables the day of surgery, leave them at home. Please take a shower or bath the night before, or the morning of, surgery with an antibacterial soap. Wear comfortable, loose fitting clothing. - Jewelry must be removed prior to entering the operating room. Rings and piercings that are not removed may be cut off. - The hospital will not accept responsibility for valuables. - Please leave all valuables, including medications, at home the day of surgery. If you are going home after surgery, a licensed cdl team truck driver must drive you home. - NO public transportation without another adult if you receive anesthesia. - We recommend that an adult stay with you for 24 hours following discharge. - We also recommend that you do not drive, make important decision, drink alcoholic beverages, or take any drugs that were not prescribed by your health care provider for at least 24 hours after your discharge time. Follow any additional instructions given to you from your surgeon. Telephone instructions given to ____PATIENT and asked if any additional questions and then verbalized understanding. Patient advised to call surgeon office or pre surgery nurse liaison [phone] if any additional questions.
[2024-09-24 12:18] VITALS: BMI 39.1
[2024-09-24 12:27] VITALS: BP 139/61; PULSE 73; RESP 16; TEMP 36.6; O2SAT 100
[2024-10-14] VITALS (15 sets, daily range): BP systolic 118–155; BP diastolic 51–106; PULSE 60–82; RESP 10–21; TEMP 36.3–36.7; O2SAT 96–100
--- NOTE | ~2024-10-14 | XR_ITS ---
Right Knee Technique: Portable AP and crosstable lateral views Clinical History: Status post TKR Findings: Patient is status post total knee replacement. Orthopedic hardware alignment appears anatom ic. No hardware complication is evident. Subcutaneous emphysema and swelling is likely postoperative in nature. No acute osseous fracture is seen. Impression: Status post total knee replacement, without evidence of hardware complication. Reviewed, dictated and finalized at location . Impression: Status post total knee replacement, without evidence of hardware complication.
--- OUTSIDE RECORDS SUMMARY | 2024-10-14 02:54 | XMS_ITS | Clinical Summary ---
Author Organization [facility] Address [address] [place] [id number] Care Team Providers Care Pavilion Cutter Name Role Phone Unavailable Primary Care Provider [...] Encounters Date Type Department Care Team Description 10/12/2024 External Device Data [facility]STRACTION Provider, Abstract 10/12/2024 External Device Data [facility] ABSTRACTION Provider, Abstract 10/12/2024 External Device Data [facility] ABSTRACTION Provider, Abstract 08/18/2024 External Device Data [facility] ABSTRACTION Provider, [...] series) 10/30/2022 INFLUENZA VACCINE (#1) 2024 Insurance [facility] [facility] Advance Directives For more information, please contact: [phone] * Full Code (Latest Code Status on File) Date Activated Date Inactivated Comments 10/24/2023 10:29 AM 10/24/2023 1:30 PM
--- OUTSIDE RECORDS SUMMARY | 2024-10-14 02:54 | XMS_ITS | Encounter Summary ---
Author Organization [facility] Address [address] [place] [address] Care Team Providers Care Head Of Geography Name Role Phone Unavailable Primary Care Provider Unavailabl e Encounter Details Date Type Department Care Team (Late st Contact Info) Description 10/12/2024 External Device Data [facility] ABSTRACTION Provider, Abstract NO ADDRESS ON FILE Social History Tobacco Use Types Packs/Day Years Used Date Smoking Tobacco: Never Feeling Safe Answer Date Recorded Are you in a relationship wi th someone who hurts you emotionally and/or physically? No 10/24/2023 Comments No Sex and Gender Information Value Date Recorded Sex Assigned at Not on file Legal Sex Female 8:41 AM CDT Gender Identity Not on file Sexual Orientation Not on file documented as of this encounter Plan of Treatment Not on file documented as of this encounter Visit Diagnoses Not on filedocumented in this encounter
[2024-10-14] MEDS: ACETAMINOPHEN 500 MG TABLET 1000 MG PO (07:04)
[2024-10-14] MEDS: LACTATED RINGERS 1,000 ML 30 ML IV CONT ×2 (07:04→09:34)
[2024-10-14] MEDS: TRANEXAMIC ACID 1,000MG/ISO100 1,000 MG/100 ML BAG 200 MG IVPB (07:04)
--- NOTE | 2024-10-14 07:13 | WPDHPUPDATE1 ---
History and Physical Update Update Date/Time: 10/14/24 07:13 History and Physical has been reviewed, including an updated exam of the patient. There are NO changes in the patient's condition. Risks, benefits, and alternatives have been discussed and questions answered. Patient agrees to proceed with procedure.
--- NOTE | 2024-10-14 07:14 | WPDANESEPPF ---
Anes - Initial Pre Proc Eval Procedure: Operation Date: 10/14/24 07:30 Proposed Procedures p Right Total Knee Arthroplasty - Darryl Vega MD Date/Time: 10/14/24 07:14 Surgeon: Darryl Vega MD Pre Op Diagnosis: Prim O A Rt Knee Patient Data Age: 78 Gender: F Height: 1.61 m Weight: 101.4 kg Last Vital Signs Temp 97.4 F L 10/14/24 07:02 Pulse 77 10/14/24 07:02 Resp 16 10/14/24 07:02 BP 135/68 10/14/24 07:02 Pulse Ox 100 10/14/24 07:02 O2 Del Method Room Air 10/14/24 07:02 Allergies Allergy/AdvReac Type Severity Reaction Status Date / Time Penicillins Allergy Intermediate Rash Verified 10/14/24 06:53 Home Medications Medication Instructions Recorded Confirmed Type aspirin 81 mg tablet 81 mg PO DAILY 04/22/19 10/14/24 History multivitamin 1 tablet PO DAILY 04/03/22 10/14/24 History omeprazole 20 mg capsule,delayed See Rx Instructions .Route 06/09/24 10/14/24 Rx release .COMPLEX #90 caps rosuvastatin 10 mg tablet See Rx Instructions .Route 06/09/24 10/14/24 Rx .COMPLEX #90 tabs tirzepatide 7.5 mg/0.5 mL 7.5 mg (0.5 mL) subcut WEEKLY #2 mL 07/20/24 10/14/24 Rx subcutaneous pen injector (Mounjaro) acetaminophen 500 mg tablet 1,000 mg PO Q6H PRN Mild Pain 09/24/24 10/14/24 History (1-3) Or Fever lisinopril 20 mg tablet 20 mg PO QAM 09/24/24 10/14/24 History lisinopril 20 See Rx Instructions .Route 09/30/24 10/14/24 Rx mg-hydrochlorothiazide 12.5 mg .COMPLEX #90 tabs tablet Patient hx anesthesia problems: none Family hx anesthesia problems: none Results Review: All pre-operative results and documents have been reviewed as part of the pre-operative evaluation. [facility] Past Medical History Medical History Urge incontinence PONV (postoperative nausea and vomiting) Osteoarthritis Ruptured appendix Normocytic anemia Asthma Fistula of appendix Peripheral edema Acute appendicitis with perforation, localized peritonitis, and abscess Overactive bladder History of TIA (transient ischemic attack) x 2 Abscess of pelvis Gout GERD (gastroesophageal reflux disease) HLD (hyperlipidemia) Vitamin D deficiency disease Surgical History Surgical History Status post total knee replacement, left (~11/12/22) Imprint S/P laparoscopic appendectomy Lap interval appy on 04/11/22 History of arthroscopic knee surgery History of partial hysterectomy History of colonoscopy last colonoscopy January 2018 with findings of diverticulosis History of bladder surgery history of implantable pulse generator for overactive bladder, status post removal in 2015, reported postop infection History of vein stripping Family History Family History Mother Family history of malignant neoplasm, Onset Age: 62 Father Carcinoma of colon Social History Social History Social History: Surrogate medical decision maker: Mikel Dickens, spouse. Code status: Full code. Smoking packs per day: 1 Smoking cigarettes per day: 20.0 Years smoked: 40 Smoking pack-years: 40.00 Smoking status: Former smoker Tobacco type: cigarettes Second hand tobacco smoke exposure: No Smoking end date: 11/30/22 Additional smoking assessment comments: DENIES ANY FORM OF TOBACCO USE Alcohol intake: current Drinks per week: 2 Alcohol use details: 4 DRINKS PER MONTH Substance use: never Substance use type: does not use Do You Feel Safe in your Home?: Yes Lack of Transportation: No Lack of Food: Never True Current Housing: I Have Housing Concerned About Future Housing: No Difficulty Paying Gas/Electric Bills: No Difficulty Paying for Meds: No 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on: Decline to Answer Difficulty w/ Childcare or Family Care: No Living arrangements: with family Additional living arrangements comments: [facility] Occupation/Education: retired Gender identity (if verbalized by the patient): Female Sexual Orientation (if Verbalized by the Patient): Straight or Heterosexual Spiritual care concerns: No Agree to blood products: Yes Anes - Eval Final PreProcedure Day of Procedure 10/14/24 07:14 Patient weight: obese Lungs: normal air movement Airway: Mallampati scale class II and special considerations (Partial x 2, none of remaining teeth are loose per pt. ) Neurological: alert and oriented Last oral intake: >/= 8 hours ASA classification: III Emergent: no Anesthetic plan: proceed Anesthesia type and monitoring: general ETT and standard monitoring Results Review: All pre-operative results and documents have been reviewed as part of the pre-operative evaluation. HTN, hyperlipidemia, DM/wt loss req GLP1 (off approx 10 days). Pt had stress test 09/2024 nml LVEF, no ischemia, due to equivocal EKG. No cp or sob w activity. Informed Consent: The patient's anesthetic plan and its attendant risks and benefits were discussed with the patient/family/POA. Questions were solicited and answers provided to the satisfaction of the patient/family/POA.
[2024-10-14] MEDS: ceFAZolin 2 GM/D5W 50 ML 2 GM/50 ML BAG IVPB ×3 (07:45→23:05)
[2024-10-14] MEDS: TRANEXAMIC ACID 1,000 MG/10 ML AMPUL 1000 MG IV PUSH (08:15)
[2024-10-14] MEDS: fentaNYL CITRATE INJ (*CRX) 100 MCG/2 ML VIAL 25 MCG IV PUSH ×8 (09:44→10:20)
--- NOTE | 2024-10-14 10:00 | W.PM.PROC2 ---
Procedure Note - Detailed Date of Procedure 10/14/24 Pre-op Diagnosis Right knee degenerative arthritis. Post-op Diagnosis Same Procedure Performed Calipered, kinematically aligned total knee replacement right knee. Surgeon Darryl Vega MD Filament Cutter Evonne Lanier PA-C Anesthesia General Findings According to the calipered kinematic alignment principles, the knee was balanced by the following verification checks incorporating 6 caliper measurements, using an insert goniometer to select the insert thickness, and adjusting the tibial resection following the kinematic alignment algorithm (see figure 160.10 published in [employer] [facility] chapter on kinematic alignment total knee arthroplasty.) The steps verified the femoral and tibial components were kinematically aligned coincident to the patient's pre arthritic joint lines, which closely restored the north fork tibial compartment forces and ligament laxities without ligament release. The [employer] FINDING ROVERriKA knee, designed specifically for kinematic alignment, fit optimally. PCL remained intact. No other releases. The record of verification checks were documented and scanned into the chart. Distal Femoral Resection: Distal Medial 6 mm(cartilage worn), Distal Lateral 8 mm Target thickness of 8mm Unworn, 6mm Worn (No Cartilage). Posterior Femoral Resection: Posterior Medial 5 mm(cartilage worn), Posterior Lateral 7 mm. Target thickness of 7mm Unworn, 5mm Worn (No Cartilage). Description of Procedure General anesthesia was administered. A well-padded tourniquet was placed high on the thigh. The limb was prepped and draped in the usual sterile fashion. The limb was exsanguinated and the tourniquet inflated to 300 mmHg during exposure and cementation. A longitudinal incision was created over the midline of the knee. Sharp dissection was taken through subcutaneous tissues. Electrocautery was used for hemostasis. A trivector approach to the knee joint was performed. The ACL, anterior horns of the menisci, and fat pad were excised, and a subperiosteal dissection was carried along the posterior medial border of the tibia. Starting midway between the top of the notch in the anterior femoral cortex, I drilled a 9 mm diameter hole parallel to the anterior cortex to minimize flexion of the femoral component and promote patella tracking. I verified the existence of a 5-10 mm bone bridge between the posterior aspect of the hole and the anterior limit of the intercondylar notch. An intraosseous positioning dmitriy was inserted 10 cm into the femur perpendicular to the distal joint line and parallel to the anterior cortex. I used a distal femoral referencing guide that compensated 2 mm when the cartilage was worn on the distal medial femoral condyle, and 2 mm when the cartilage was worn on the distal lateral femoral condyle. The basis for setting the distal and posterior femoral resection guide is knowing that the varus and valgus grade II to IV Kellegren-Marcelo osteoarthritic knees have negligible bone wear at 0° and 90° and that the mean full-thickness cartilage wear approximates 2 mm. I measured the thickness of distal femoral resections with a caliper to +/- 0.5 mm. The thickness of each resection was adjusted to match the thickness of the respective condyle of the femoral component within 0.5 mm of target after compensating for cartilage wear and kerf. When the distal resection was 1-2 mm too thin, a recut guide was used to adjust the cut. When the distal resection was too thick, a 1 or 2 mm thick washer was fixed to the back of the 4-in-1 chamfer block to giovany a corrective gap between the femoral component and distal femur. I set posterior femoral referencing guide at 0° orientation to position the pin holes for the 4 in 1 chamfer block. The boyd wing measured the width of the distal femoral resection and selected the size of the 4 in 1 chamfer block and femoral component. The AP sizer confirmed the size. I measured the thickness of the posterior femoral resections with a caliper before making the anterior and chamfer cuts. I adjusted the thicknesses of each resection to match the thickness of the respective condyle of the femoral component within +/-0.5 mm after compensating for cartilage wear and curve. When a posterior resection femoral resection was 1-2 mm too thick or thin a corrective correction was made by shifting or rotating the 4 in 1 chamfer block as needed. The chamfer block was secured in the correct position with compression screws. The anterior and chamfer femoral resections were made. These caliper measurements and corrections verified that the femoral component was set coincident with the patient's pre-arthritic distal and posterior femoral joint lines. I removed all the medial and lateral femoral and tibial osteophytes to restore the pre arthritic length of the medial and lateral collateral ligaments. I huy AP lines along the major axis of the lateral tibial plateau in between the tibial spines which identified the flexion extension plane of the knee. A conventional extramedullary tibial resection guide was applied to the ankle. An boyd wing was placed medially in the saw slot. The varus valgus angle of the tibial resection guide was adjusted until the guide paralleled the proximal tibial articular surface after compensating for cartilage and bone wear. The slope of flexion extension angle of the tibial resection guide was adjusted until the boyd wing paralleled the slope of the medial tibia after compensating for wear. The AP axis of the tibial resection guide was adjusted parallel to the two lines. The proximal tibia was resected, partially releasing the insertion of the posterior cruciate ligament. The thickness of the medial and lateral lateral tibial condyle was measured at the base of the tibial spines. I visually verified the slope of the medial border of the resection was parallel to the patient's pre arthritic slope after compensating for cartilage and bone wear. I removed the remnants of the posterior horns of the menisci and posterior osteophytes and cauterized the inferior lateral genicular vessels. The Aquamantys bipolar device was also used to for additional hemostasis. When the knee had a preoperative flexion contracture of 20° or more I teased the capsule off the posterior femur with a curved 3 quarter-inch osteotome. I administered the posterior femoral periosteal injection by delivering 10 cc using a 20 gauge spinal needle at the most medial and 10 cc at the most lateral femoral spur surface which reduced the risk of injury to the posterior neurovascular structures. I followed 6 options in a decision tree to fine tune the varus valgus and posterior slope orientation of the tibial component to restore the patient's pre arthritic tibial joint line and limb alignment. First, I adjusted the varus-valgus orientation of the proximal tibia resection working in 1 degree to 2 degree increments until there was negligible medial and lateral lift off of the distal femoral and proximal tibial resection from the spacer block during a varus valgus laxity assessment in extension. I selected the largest anatomic shape trial tibial base plate that fit within the cortical boundary of the proximal tibial resection. The base plate was best fit parallel to the cortical boundary which set the Internal-external orientation of the anterior to posterior and medial to lateral positions. The best fit method set the AP axis of the tibial base plate and insert parallel to the flexion extension plane of the pre arthritic knee. I pinned the trial tibial base plate, prepared the cruciate slot, and fixed the base plate to the tibia with the cruciate stem. I inserted the trial femoral component. The knee was placed in full extension. Varus valgus laxity is of the knee with trial components were assessed. When asymmetric laxity was observed a 1-2 degree varus or valgus recut guide was used to fine tune the tibial resection until the laxity was 1 degree or less in full extension like the north fork knee. The following steps determined the optimal insert thickness within +/-1 mm. First I inserted an insert goniometer that matched the thickness of the spacer block. I reduced the patella and then with the knee in maximum extension, I verified the knee hyperextended a few degrees and had negligible varus valgus laxity, like the pre arthritic knee. Next, I measured the external tibial orientation which was the angle the insert goniometer intersected the sagittal line on the medial condyle of the femoral trial component. Then with the knee in 15-30 degrees flexion I verified a 3-4 mm gap in the lateral compartment and no gap in the medial compartment during a 2nd varus valgus laxity test. Next, I placed the knee in 90° of flexion and the foot resting on the operating table and measured the internal tibial orientation. I repeated the steps until I identified the insert thickness that provided the highest external tibia orientation in extension and the highest internal tibial orientation at 90° flexion without anterior lift-off of the insert from the tibial base plate. The insert with this thickness was implanted. I applied a posterior drawer test with the tibia distracted by gravity and verified no posterior subluxation of the tibia relative to the femur. The thickness of the north fork patella was measured with a caliper. The patella was resected using the oscillating saw. The best fitting patella button was selected. The fixation holes were drilled. When the patella and patella buttons combined thickness was thicker than the north fork patella, the patella was recut. The patella remained centered on the trochlea and tracked well throughout the entire arc of flexion and extension. I used pulse lavage to clean the bony surfaces of debris and dried bone. I cemented the tibial, femoral, and patellar components using 1 bag of methylmethacrylate with Gentamycin, then rechecked the stability at full extension, 15-30 degrees, and 90° flexion and verified lutheran of the entire arc of motion of the knee. The circulating nurse confirmed the sponge and needle counts were correct. I used pulse lavage to rinse the joint and wound. The extensor mechanism was closed with interrupted #1 Vicryl suture and #1 running Stratafix suture. The subcutaneous layer was closed with interrupted #1 Vicryl suture followed by 2-0 Stratafix and 3-0 Stratafix. Steri-Strips placed on the skin. Silver impregnated occlusive dressing applied to the wound. A light gauze wrap and Brayden bandage were placed. The patient was transferred to the recovery room in stable condition. There were no complications. Implants Medacta GMK spheriKA Femoral component SpheriKA size 3+, tibial component size 3, vitamin-E flex insert, thickness 11mm, Janet patella implant size 29mm. Estimated Blood Loss 20 Drains No Pathology None sent Complications No immediate complications Condition Stable Disposition PACU [facility] Billing Surgery - Charge Forward: Surgery Billing
[2024-10-14] MEDS: HYDROmorphone HCL INJ (*CRX) 1 MG/ML SYR 0.25 MG IV PUSH ×3 (10:49→11:00)
--- NOTE | 2024-10-14 12:16 | ADMGEN ---
This patient, Gogo Dickens, was admitted to [facility] Surg Room 321-. Patient/family oriented to hospital policies and general routines including ID bracelet, bed and alarms, visiting hours, pain management, procedures, bathroom and other care routines, personal items, smoking policy, room service/diet, and visiting hours. Information on how to activate the Rapid Response Team has been discussed. Patient/Family are encouraged to report perceived risks to care and to ask questions if they do not understand what they are told or what they should do.
[2024-10-14] MEDS: ACETAMINOPHEN 325 MG TABLET 650 MG PO ×3 (12:56→23:39)
[2024-10-14] MEDS: SODIUM CHLORIDE 0.9% IV 1,000 ML 125 ML IV CONT (12:56)
[2024-10-14] MEDS: ONDANSETRON INJ 4 MG/2 ML VIAL IV PUSH ×2 (12:56→17:18)
[2024-10-14] MEDS: oxyCODONE/ACETAMINOPHEN (*CRX) 10-325 MG TABLET 1 TAB PO ×2 (14:09→22:04)
[2024-10-14] MEDS: SENNA/DOCUSATE SODIUM TABLET 2 TAB PO (17:19)
[2024-10-14] MEDS: ASPIRIN 81 MG ENTERIC TABLET PO (17:19)
[2024-10-14] MEDS: FAMOTIDINE 20 MG TABLET PO (20:45)
[2024-10-15 01:10] VITALS: BP 108/39; PULSE 84; RESP 14; TEMP 36.4; O2SAT 99
[2024-10-15] MEDS: oxyCODONE/ACETAMINOPHEN (*CRX) 10-325 MG TABLET 1 TAB PO (04:09)
[2024-10-15 05:10] VITALS: BP 114/43; PULSE 76; RESP 16; TEMP 36.4; O2SAT 98
[2024-10-15] MEDS: ACETAMINOPHEN 325 MG TABLET 650 MG PO ×2 (05:23→12:15)
[2024-10-15] MEDS: ceFAZolin 2 GM/D5W 50 ML 2 GM/50 ML BAG IVPB (06:15)
[2024-10-15 06:59] LABS: Basophils Percent Auto 0.3 % (0.2-1.2); Eosinophils Absolute Auto 0.1 K/mm3 (0-0.3); Eosinophils Percent Auto 0.7 % (0-4.4); Hematocrit 30.5 % (37.0-47.0); Hemoglobin 9.7 g/dL (12.0-15.0); Immature Granulocyte Absolute 0.03 K/mm3 (0.00-0.031); Immature Granulocyte Percent A 0.3 % (0-0.5); Lymphocytes Absolute Auto 2.02 K/mm3 (0.9-3.2); Lymphocytes Percent Auto 20.2 % (18.3-44.2); Mean Corpuscular HGB Conc 31.8 g/dl (32-36); Mean Corpuscular Hemoglobin 30.5 pg (26-34); Mean Corpuscular Volume 95.9 fl (80-100); Mean Platelet Volume 11.1 fl (7.4-10.4); Monocytes Percent Auto 10.3 % (2.6-8.5); Neutrophils Absolute Auto 6.8 K/mm3 (1.3-6.7); Neutrophils Percent Auto 68.2 % (45.5-73.1); Platelet Count Result 198 k/mm3 (150-375); Red Blood Count 3.18 M/mm3 (4.2-5.4); Red Cell Distribution Width 14.4 % (11.5-14.5)
[2024-10-15 07:10] LABS: Anion Gap 6 mmol/L (4-12); Blood Urea Nitrogen 19 mg/dL (7-17); Calcium 8.2 mg/dL (8.4-10.2); Carbon Dioxide 28 mmol/L (22-30); Chloride 104 mmol/L (98-107); Estimated CRCL calculation 73 ml/min; Estimated Glomerular Filt Rate > 60; Glucose 107 mg/dL (65-110); Potassium 4.1 mmol/L (3.4-5.0); Sodium 138 mmol/L (137-145)
[2024-10-15] MEDS: ONDANSETRON INJ 4 MG/2 ML VIAL IV PUSH (09:34)
[2024-10-15] MEDS: SENNA/DOCUSATE SODIUM TABLET 2 TAB PO (09:35)
[2024-10-15] MEDS: lisinopriL 20 MG TABLET PO (09:35)
[2024-10-15] MEDS: polyethylene glycoL 3350 17 GM POWD.PACK PO (09:35)
[2024-10-15] MEDS: PANTOPRAZOLE 40 MG TABLET PO (09:36)
[2024-10-15] MEDS: ROSUVASTATIN 10 MG TABLET BY MOUTH (09:36)
[2024-10-15] MEDS: predniSONE 5 MG TABLET PO (09:36)
[2024-10-15] MEDS: ASPIRIN 81 MG ENTERIC TABLET PO (09:36)
[2024-10-15] MEDS: hydroCHLOROthiazide 12.5 MG CAPSULE PO (09:36)
[2024-10-15] MEDS: FAMOTIDINE 20 MG TABLET PO (09:36)
[2024-10-15] MEDS: oxyCODONE/ACETAMINOPHEN (*CRX) 5-325 MG TABLET 1 TABLET PO (12:15)
[2024-10-15] MEDS: HYDROmorphone HCL INJ (*CRX) 2 MG/ML VIAL 1 MG IV PUSH (12:40)
== END 2024-10-15 13:34 | disposition home or self-care (01) ==
LOC: ANHSURGERY 07:19 → ANH3MEDSUR 11:26
PROVIDERS: Physician Assistant Surgical; PCP Nurse Practitioner Family; Visit Provider Orthopaedic Surgery
PROC: (CPT 27447; principal; 2024-10-14 07:30)
DX: M17.11 Unilateral primary osteoarthritis, right knee (principal); Z87.891 Personal history of nicotine dependence; E66.9 Obesity, unspecified; Z68.39 Body mass index [BMI] 39.0-39.9, adult
CPT/HCPCS: 27447; 36415; 73560; 80048; 85025; 86850; 86900; 86901; 97110; 97116; 97161; 97165; 97530; 97535; C1776; A9270; C1713; J0171; J0690; J1100; J1171; J1885; J2003; J2250; J2270; J2405; J2704; J2795; J3010; J7030; J7120; J7512

== ENCOUNTER 2025-02-14 09:48 | Outpatient (CLI) | payer MEDICARE, SELFPAY ==
--- NOTE | ~2025-02-14 | CT_ITS ---
EXAMINATION: CT abdomen pelvis wo con, 02/14/2025 10:10 CDT HISTORY: K43.2 - Incisional hernia without obstruction or gangrene COMPARISON: Comparison 09/11/2023. TECHNIQUE: CT scan of the abdomen and pelvis was performed without IV contrast. One or more of the following dose reduction techniques were used: automated exposure control, adjustment of the mA and/or kV according to patient size, use of iterative reconstruction technique. Unless otherwise stated, incidental findings do not require dedicated follow up imaging FINDINGS: CT abdomen: LUNG BASES: The lung bases are clear. The visualized portions of the heart and pericardium are unremarkable. LIVER: Unremarkable, liver contours intact, no lesions. SPLEEN: Unremarkable, no splenomegaly. KIDNEYS: Right Kidney: Unremarkable. No calculi. No hydronephrosis. Left Kidney: Unremarkable. No calculi. No hydronephrosis ADRENAL GLANDS: Unremarkable. PANCREAS: Unremarkable. GALLBLADDER/BILIARY: Unremarkable. No biliary dilatation. STOMACH AND ESOPHAGUS: Visualized stomach and esophagus within normal limits. BOWEL/MESENTERY: There is a large ventral hernia containing large bowel, the defect in the abdominal wall measures 6.4 cm. Moderate fecal content, no colitis or diverticulitis. Appendix normal. Mesentery normal. No dilated small bowel loops. ADENOPATHY/RETROPERITONEUM: No lymphadenopathy. AORTA/VASCULATURE: Normal caliber aorta. FREE FLUID OR FREE AIR: No free fluid.. CT pelvis: SOLID ORGANS/REPRODUCTIVE: Post hysterectomy. No adnexal mass. BLADDER: Circumferential thickening of the bladder wall. OSSEOUS STRUCTURES: No acute osseous abnormality.No suspicious lesions. OVERLYING SOFT TISSUES: Unremarkable. IMPRESSION: 1. Large ventral hernia. Incidental findings above Reviewed, dictated and finalized at location A.
== END 2025-02-14 09:49 | disposition home or self-care (01) ==
LOC: MICIMG 09:49
PROVIDERS: PCP Nurse Practitioner Family; Visit Provider Surgery
DX: K43.2 Incisional hernia without obstruction or gangrene (principal)
CPT/HCPCS: 74176

== ENCOUNTER 2025-02-16 15:15 | Outpatient (CLI) | payer MEDICARE, SELFPAY ==
--- NOTE | ~2025-02-16 | US_ITS ---
EXAMINATION: US carotid duplex BI DATE: 02/16/2025 16:23 INDICATION: Personal history of transient ischemic attack. TECHNIQUE: Grayscale, color Doppler, and pulsed Doppler images of the cervical carotid arteries were obtained. The degree of vessel stenosis is placed in one of the following categories: normal, <50%, 50-69%, >=70% but less than near- occlusion, near-occlusion, or total occlusion. Note that percent stenosis relative to normal distal artery lumen diameter is indirectly measured from velocity measurements as described by Kenny, et al. Radiology 2003; 229:340-346. COMPARISON: None. FINDINGS: RIGHT: The right common carotid artery (CCA) peak systolic velocity (PSV) is 110 cm/s. The right internal carotid artery (ICA) PSV is 97 cm/s. The right ICA end- diastolic velocity (EDV) is 29 cm/s. The right ICA/CCA PSV ratio is 0.9. Grayscale and color Doppler images yield an estimate of <50% diameter reduction from plaque in the ICA. There is antegrade flow in the right vertebral artery. LEFT: The left CCA PSV is 111 cm/s. The left ICA PSV is 106 cm/s. The left ICA EDV is 35 cm/s. The left ICA/CCA PSV ratio is 1.0. Grayscale and color Doppler images yield an estimate of <50% diameter reduction from plaque in the ICA. There is antegrade flow in the left vertebral artery. IMPRESSION: 1. <50% stenosis in the right internal carotid artery. 2. <50% stenosis in the left internal carotid artery. Reviewed, dictated and finalized at location E.
--- OUTSIDE RECORDS SUMMARY | 2025-02-16 15:59 | XMS_ITS | Clinical Summary ---
Author Organization [employer] Address [id number] [place] [id number] Care Team Providers Care Veterans Employment Representative Name Role Phone Unavailable Primary Care Provider [...] Take 20 mg by mouth daily. Active Social History Tobacco Use Types Packs/Day Years [...] 10:05 AM CDT Height 165.1 cm (5' 5) 10/24/2023 10:05 AM CDT Body Mass Index [...] 10/30/2022 INFLUENZA VACCINE (#1) 2024 Insurance AETNA O [facility] Advance Directives For more information, please contact: [phone] * Full Code (Latest Code Status on File) Date Activated Date Inactivated Comments 10/24/2023 10:29 AM 10/24/2023 1:30 PM
== END 2025-02-16 15:16 | disposition home or self-care (01) ==
PROVIDERS: PCP Nurse Practitioner Family; Visit Provider Surgery
DX: I65.23 Occlusion and stenosis of bilateral carotid arteries (principal); K43.2 Incisional hernia without obstruction or gangrene; Z86.73 Personal history of transient ischemic attack (TIA), and cerebral infarction without residual deficits
CPT/HCPCS: 93880

== ENCOUNTER 2025-02-24 11:10 | Outpatient (CLI) | payer MEDICARE, SELFPAY ==
--- NOTE | ~2025-02-24 | XR_ITS ---
EXAMINATION: XR chest 2V DATE: 02/24/2025 12:05 INDICATION: Incisional hernia without obstruction or gangrene TECHNIQUE: PA and lateral views of the chest were obtained. COMPARISON: Chest radiograph dated 09/13/2022 FINDINGS: The lungs remain clear with no focal airspace opacities, pulmonary edema, pleural effusion or pneumothorax. The cardiomediastinal silhouette is normal. Tortuous and atherosclerotic thoracic aorta. Mild to moderate thoracic spondylosis with mild kyphosis and chronic mild anterior wedging of a couple low er thoracic vertebral bodies. IMPRESSION: 1. No acute cardiopulmonary disease. Reviewed, dictated and finalized at location A.
--- NOTE | 2025-02-24 11:34 | ECG_ITS ---
Test Date: 2025-02-24 11:51:49 Measurements Intervals [place] Rate: 61 P: 42 ME: 179 QRS: 1 QRSD: 70 T: 6 QT: 376 QTc: 381 Interpretive Statements SINUS RHYTHM LOW QRS VOLTAGE IN PRECORDIAL LEADS [QRS DEFLECTION < 1.0 mV IN CHEST LEADS] Electronically Signed On 02-24-2025 15:25:29 CDT by Jesús Horta M.D.
[2025-02-24 12:14] LABS: Hematocrit 39.0 % (37.0-47.0); Hemoglobin 12.6 g/dL (12.0-15.0); Immature Granulocyte Percent A 0.3 % (0-0.5); Lymphocytes Absolute Auto 1.78 K/mm3 (0.9-3.2); Mean Corpuscular HGB Conc 32.3 g/dl (32-36); Mean Corpuscular Hemoglobin 29.0 pg (26-34); Mean Corpuscular Volume 89.7 fl (80-100); Nucleated Red Blood Cells Absolute Auto 0.000 K/mm3 (0.0-0.012); Nucleated Red Blood Cells Perc 0.0 % (0.0-0.2); Platelet Count Result 212 k/mm3 (150-375); Red Blood Count 4.35 M/mm3 (4.2-5.4); White Blood Count 6.6 K/mm3 (4.5-10.0)
[2025-02-24 12:25] LABS: INR 0.9; Prothrombin Time 12.8 Seconds (11.1-14.7)
[2025-02-24 12:26] LABS: Partial Thromboplastin Time 30.3 Seconds (22.3-36.8)
[2025-02-24 12:38] LABS: Anion Gap 5 mmol/L (4-12); Blood Urea Nitrogen 25 mg/dL (7-17); Calcium 9.5 mg/dL (8.4-10.2); Carbon Dioxide 30 mmol/L (22-30); Chloride 102 mmol/L (98-107); Estimated Glomerular Filt Rate > 60; Glucose 90 mg/dL (65-110); Potassium 4.4 mmol/L (3.4-5.0); Sodium 137 mmol/L (137-145)
== END 2025-02-24 11:11 | disposition home or self-care (01) ==
LOC: ANHSURGERY 11:14
PROVIDERS: PCP Nurse Practitioner Family; Visit Provider Surgery
DX: K43.2 Incisional hernia without obstruction or gangrene (principal)
CPT/HCPCS: 36415; 71046; 80048; 85025; 85610; 85730; 93005

== ENCOUNTER 2025-03-03 09:22 | Observation (INO) | payer MEDICARE, SELFPAY ==
[2025-02-18 10:39] VITALS: BMI 39.4
--- NOTE | 2025-02-18 10:48 | PC.NURSE ---
[facility] has started construction of its new state of the art ER which will open Spring 2026. With this, we anticipate parking may be a challenge for some our surgical patients and families. Parking spaces are limited but are available for all Surgical, obstetrics, and ER patients sharing this lot. If you arrive and find you are having a hard time finding a parking space, please note that we understand the challenges, please drive around the hospital and park near Hospital Entrance 1. When you enter this entrance, you can ask a volunteer to direct or take you back to the surgical waiting area to check in. We appreciate everyone?s understanding of these expected challenges while we build for your future. Report to the Outpatient Waiting Room, entrance under the green pavilion located off [address], at time __06:30am on date _03/02/25 . Planned Procedure Time: __08:30am .? Time changes happen often and if your time is changed the preop area will call you the afternoon before. - You and your visitor will be asked to self-screen and do not enter if you have any COVID symptoms. Please call surgeon if you need to reschedule. - A mask is optional within the hospital at this time. Patients may have clear liquids (water, carbonated beverages, clear teas, apple juice) until 3 hours prior to surgery with a maximum of 20 ounces. - No food from midnight until time of surgery and no smoking, or chewing tobacco (or any form of nicotine). No chewing gum, candy or mints.(05:30am) Take only the following medications with a SIP of water on the morning of surgery: __Tylenol if needed DO NOT STOP ANY OF YOUR OTHER PRESCRIPTION MEDICATIONS PRIOR TO SURGERY EXCEPT THE FOLLOWING Hold all vitamins and supplements for 3 days per anesthesiologist. Medications to discontinue per physician Enrrique HOLD for [address] Post Date to take last dose 02/19/25 Please no make-up, nail czech, hairspray, perfume, deodorant, or body powder the day of surgery.? No jewelry (including any body piercings) or valuables the day of surgery, leave them at home.? Please take a shower or bath the night before, or the morning of, surgery with an antibacterial soap.(GOLD DIAL)?Wear comfortable, loose fitting clothing.? Bring overnight bag - Jewelry must be removed prior to entering the operating room.? Rings and piercings that are not removed may be cut off. - The hospital will not accept responsibility for valuables.? - Please leave all valuables, including medications, at home the day of surgery. If you are going home after surgery, a licensed hazmat tanker driver must drive you home.? - NO public transportation without another adult if you receive anesthesia. - We recommend that an adult stay with you for 24 hours following discharge. - We also recommend that you do not drive, make important decision, drink alcoholic beverages, or take any drugs that were not prescribed by your health care provider for at least 24 hours after your discharge time. Follow any additional instructions given to you from your surgeon. Telephone instructions given to ____Patient and and asked if any additional questions and then verbalized understanding. Patient advised to call surgeon office or pre surgery nurse liaison [phone] if any additional questions.
[2025-03-02] VITALS (15 sets, daily range): BP systolic 97–130; BP diastolic 46–85; PULSE 55–99; RESP 10–18; TEMP 36–36.7; O2SAT 95–100
--- OUTSIDE RECORDS SUMMARY | 2025-03-02 00:54 | XMS_ITS | Clinical Summary ---
Author Organization [employer] Address [id number] [place] [id number] Care Team Providers Care Forensic Structural Engineer Name Role Phone Unavailable Primary Care Provider [...] INFLUENZA VACCINE (#1) 2024 Insurance AETNA O [facility] Advance Directives For more information, please contact: [phone] * Full Code (Latest Code Status on File) Date Activated Date Inactivated Comments 10/24/2023 10:29 AM 10/24/2023 1:30 PM
[2025-03-02] MEDS: ACETAMINOPHEN 500 MG TABLET 1000 MG PO (06:30)
--- NOTE | 2025-03-02 06:36 | WPDANESEPPF ---
Anes - Initial Pre Proc Eval Procedure: Operation Date: 03/02/25 07:30 Proposed Procedures p Repair Incisional Hernia with Mesh Posterior Component Separation - Clifton Post MD Date/Time: 03/02/25 06:36 Surgeon: Clifton Post MD Pre Op Diagnosis: incisional hernia Patient Data Age: 79 Gender: F Height: 1.6 m Weight: 101 kg Allergies Allergy/AdvReac Type Severity Reaction Status Date / Time Penicillins Allergy Intermediate Rash Verified 03/02/25 06:35 Home Medications ?Medication ?Instructions ?Recorded ?Confirmed ?Type aspirin 81 mg tablet 81 mg PO DAILY 04/22/19 03/02/25 History omeprazole 20 mg capsule,delayed See Rx Instructions .Route 12/01/24 03/02/25 Rx release .COMPLEX #90 caps rosuvastatin 10 mg tablet See Rx Instructions .Route 02/02/25 03/02/25 Rx .COMPLEX #90 tabs lisinopril 20 mg tablet 20 mg PO QAM #90 tabs 02/03/25 03/02/25 Rx lisinopril 20 See Rx Instructions .Route 02/03/25 03/02/25 Rx mg-hydrochlorothiazide 12.5 mg .COMPLEX #90 tabs tablet acetaminophen 500 mg tablet (Pain 1,000 mg PO .PM PRN pain 02/18/25 02/24/25 History Relief (acetaminophen)) biotin 10,000 mcg capsule 10,000 mcg PO DAILY 02/18/25 03/02/25 History multivitamin with minerals-folic 1 tablet PO DAILY 02/18/25 03/02/25 History acid 80 mcg chewable tablet (Centrum Adult 50 Plus) Patient hx anesthesia problems: none Family hx anesthesia problems: none Results Review: All pre-operative results and documents have been reviewed as part of the pre-operative evaluation. [facility] Past Medical History Medical History Urge incontinence PONV (postoperative nausea and vomiting) Osteoarthritis Ruptured appendix Normocytic anemia Asthma Fistula of appendix Peripheral edema Acute appendicitis with perforation, localized peritonitis, and abscess Overactive bladder History of TIA (transient ischemic attack) x 2 Abscess of pelvis Gout GERD (gastroesophageal reflux disease) HLD (hyperlipidemia) Vitamin D deficiency disease Surgical History Surgical History History of total right knee replacement (~10/14/24) Medacta Status post total knee replacement, left (~11/12/22) Imprint S/P laparoscopic appendectomy Lap interval appy on 04/11/22 History of arthroscopic knee surgery History of partial hysterectomy History of colonoscopy last colonoscopy January 2018 with findings of diverticulosis History of bladder surgery history of implantable pulse generator for overactive bladder, status post removal in 2015, reported postop infection History of vein stripping Family History Family History Mother Family history of malignant neoplasm, Onset Age: 62 Father Carcinoma of colon Social History Social History Social History: Surrogate medical decision maker: Mikel Dickens, spouse. Code status: Full code. Smoking packs per day: 1 Smoking cigarettes per day: 20.0 Years smoked: 40 Smoking pack-years: 40.00 Smoking status: Former smoker Second hand tobacco smoke exposure: No Additional smoking assessment comments: DENIES ANY FORM OF TOBACCO USE Alcohol intake: current Drinks per week: 2 Alcohol use details: 4 DRINKS PER MONTH Substance use: never Substance use type: does not use Do You Feel Safe in your Home?: Yes Lack of Transportation: No Lack of Food: Never True Current Housing: I Have Housing Concerned About Future Housing: No Difficulty Paying Gas/Electric Bills: No Difficulty Paying for Meds: No 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on: Decline to Answer Difficulty w/ Childcare or Family Care: No Living arrangements: with family Additional living arrangements comments: [facility] Occupation/Education: retired Gender identity (if verbalized by the patient): Female Sexual Orientation (if Verbalized by the Patient): Straight or Heterosexual Spiritual care concerns: No Agree to blood products: Yes Anes - Eval Final PreProcedure Day of Procedure 03/02/25 06:36 Patient weight: morbidly obese Heart: regular rate and rhythm Lungs: clear to auscultation Airway: Mallampati scale class II Neurological: alert and oriented Last oral intake: >/= 8 hours ASA classification: III Emergent: no Anesthetic plan: proceed Anesthesia type and monitoring: general ETT and standard monitoring Results Review: All pre-operative results and documents have been reviewed as part of the pre-operative evaluation. Informed Consent: The patient's anesthetic plan and its attendant risks and benefits were discussed with the patient/family/POA. Questions were solicited and answers provided to the satisfaction of the patient/family/POA.
[2025-03-02] MEDS: LACTATED RINGERS 1,000 ML 30 ML IV CONT ×3 (06:45→13:33)
[2025-03-02] MEDS: KETOROLAC 15 MG/ML VIAL (*BKC) IV PUSH (06:54)
--- NOTE | 2025-03-02 07:02 | SUR.PREOP ---
0700 PT INFORMED OF SURGERY TIME DELAY, DENIES NEEDS AT THIS TIME
--- NOTE | 2025-03-02 07:40 | WPDHPUPDATE1 ---
History and Physical Update Update Date/Time: 03/02/25 07:40 History and Physical has been reviewed, including an updated exam of the patient. There are NO changes in the patient's condition. Risks, benefits, and alternatives have been discussed and questions answered. Patient agrees to proceed with procedure.
--- NOTE | 2025-03-02 07:50 | WPDHPUPDATE1 ---
History and Physical Update Update Date/Time: 03/02/25 07:50 History and Physical has been reviewed, including an updated exam of the patient. There are NO changes in the patient's condition. Risks, benefits, and alternatives have been discussed and questions answered. Patient agrees to proceed with procedure.
[2025-03-02] MEDS: ceFAZolin 2 GM in SODIUM CHLORIDE 0.9% IV 50 ML 100 ML IVPB (08:20)
--- NOTE | 2025-03-02 09:18 | S_PTH ---
PATIENT: Gogo Dickens LOC: [id number] #:[id number] AGE/SX: 79/F ROOM: 319 RE03/03/[address]: Romario Penaloza MD : 1945 BED: 01 DIS: 03/07/2025 SPEC #: [id number] RECD: 03/02/25 11:33 STATUS: KALI REQ #: [id number] LETY: 03/02/25 09:[address]: Clifton Post DEPT: [facility] RECD BY: Pricilla Alexis ENTERED: 03/02/25 11:33 SP TYPE: Surgical OTHR DR: Yelena Steele APRN Tissues: A - Hernia Sac Procedures: Gross and Microscopic Level 2 Hematoxylin and Eosin Stain
[2025-03-02] MEDS: HYDROmorphone HCL INJ (*CRX) 1 MG/ML SYR 0.25 MG IV PUSH ×7 (12:35→14:24)
--- NOTE | 2025-03-02 12:36 | W.PM.PROC2 ---
Procedure Note - Detailed Date of Procedure 03/02/25 Pre-op Diagnosis incisional hernia Post-op Diagnosis Same Procedure Performed Repair multiple incisional hernias with 17 cm defect with mesh, bilateral transversus abdominis myofascial flap advancement, 7 cm on the right, 4 cm on the left Surgeon Clifton Post MD Drain Tiler Elisabet Phelan [facility] Anesthesia General Indications patient had a ruptured appendix in 2021, about 3 years ago. She had this converted to open surgery for removal. Since that time, she gained a lot of weight and developed a large mid abdominal incisional hernia. This was painful for her and she was seen in the office. CT scan showed 2 different incisional hernias. There was longitudinally an 8.8 cm layer of intact fascia but the overall length of the hernia was [address] scan. It is 8.1 cm in transverse dimension. She is taken to surgery at this time for open repair of multiple incisional hernias with mesh and bilateral posterior component separation. Findings Large left-sided subcutaneous pocket holding chronically eviscerated bowel. Large hernia sac. Contracted left rectus muscle that was retracted laterally. Description of Procedure Patient was taken to surgery and induced into general anesthesia. The abdomen is prepped and draped. Hernandez catheter had been placed. Her previous midline scar was excised. Cautery was used for hemostasis. We then dissected down and immediately found the large hernia sac. The sac was opened and I was able to palpate the defect. I divided the hernia sac longitudinally. I then divided the midline fascia further caudal and eventually connected to the lower abdominal incisional hernia. I extended this fascial opening about 3 cm beyond the hernia and opened the overlying skin to the same extent. In a cephalad dimension, I had to extend the incision about another 6 cm. The fascia was opened this extent as well. I then checked the intra-abdominal contents and took down adhesions from both the right side and the left side. There were omental adhesions in the pelvis that were divided as well. The hernia sac was predominantly on the left subcutaneous tissue. It was 90% excised and was sent to the pathologist labeled hernia sac. Before beginning the component separation, I placed a blue towel in the abdomen so that it would quarantine off the viscera and omentum from the abdominal wall structures. I then exposed the abdominal wall on the patient's left side. The rectus abdominis was not as wide as expected and was displaced laterally. It was difficult to expose. I found the medial edge of the rectus muscle and divided the posterior rectus fascia along the medial edge. This was performed cephalad and caudad the length of the wound. I dissected the rectus posterior fascia off the rectus muscle but there was not much in the way of posterior rectus fascia on this left side. Cautery was used for hemostasis. I then extended the division of the posterior rectus fascia and peritoneum down to the pubis. Dissection was carried out so that I was able to dissect posterior to the pubis and on to the patient's right side. I then went back to the incision and elevated the abdominal wall. I divided the posterior rectus fascia from the medial edge of the rectus muscle in a cephalad direction. Eventually I came in the vicinity of the xiphoid process. I dissected under the midline linea alba staying above the peritoneum and falciform ligament. I then continued the dissection both in the upper midline and just to the left where the posterior rectus fascia edge lies up to and beyond the xiphoid process. I then changed sides with the 1st therapist's assistant. We approached the right-sided rectus abdominis muscle. There was still some hernia sac on the right side and I preserved this and dissected down onto the medial edge of the right rectus muscle. I continued this dissection caudally the extent of the incision. I then continued the dissection anteriorly and went up to the area of the xiphoid process. The right side had more normal position and with of the rectus abdominus. Fortunately, the with the the posterior rectus fascia also was significantly larger. I connected the dissection done on the left side with that on the right side so that we were in a contiguous plain under the xiphoid process. The right costal margin was easily seen and access to the cephalad transversus abdominis was also easily identified. Caudally I continued this dissection down beyond the semicircular line and divided the peritoneum from the posterior rectus muscle and then eventually dissected down and communicated the retropubic dissection on the right side with the left side. I then went back to the right costal margin in the upper aspect of the wound. We began dividing the transversus abdominis starting subcostal and then proceeding from cephalad to caudad. Care was taken to avoid the neurovascular bundles at the lateral margin of the rectus abdominis. Mostly this dissection was done elevating the transversus over a clamp and the 1st therapist's assistant dividing the transversus. This process was continued until we had performed the transversus abdominis release on the right side. Dissection laterally had gone to the retroperitoneal fat. The right transversus release was easily 7 or more cm. I then went back to the patient's right side and began the transversus abdominis on the patient's left. This was done in the same fashion as the right side had been done but the left-sided rectus had about half the width of the right-sided rectus. It was also displaced laterally. The posterior rectus fascia was likewise narrowed unlike the right-sided posterior rectus fascia. None the less, as we continued our transversus abdominis release on the patient's left side we were able to advance this nearly to the midline probably about 4 cm medially. I then checked that the posterior rectus and transversus release plane was communicated throughout the abdomen so that wide mesh placement could be performed. All looked good. I then placed, in brigid position, 2 pieces of extra-large polypropylene mesh. This mesh covered cephalad beyond the xiphoid and caudad beyond the pubis. Both pieces of mesh extended far laterally on each side. The mesh was not trimmed when it was placed. When the mesh was in good position, I placed a 19 [place] Matthew drain over the mesh, in the retro rectus position, and brought it out the right lower quadrant. The drain was sutured to the skin with 2-0 silk. We then closed the midline fascia with bidirectional running 1. PDS suture. I then used another 19 [place] Matthew drain and brought it out the left lower quadrant. It was in the subcutaneous but particularly drained the large pocket created by the chronically eviscerated bowel on the left side of the wound. This was sutured to the skin with 2-0 silk as well. The subcutaneous was then closed with interrupted 3-0 Vicryl suture. The skin was then closed with subcuticular interrupted 4-0 Vicryl suture. Both drains were placed to bulb suction. Wound was dressed with Xeroform gauze, fluffs, and Medipore tape. Patient was then awakened and extubated. She transferred to recovery in good condition. Sponge needle counts were correct x2. Implants Two pieces extra-large polypropylene mesh Estimated Blood Loss -75 Drains Yes ( retro rectus 19 [place] Matthew drain, subcutaneous 19 [place] Matthew drain) Packing No Pathology Yes ( hernia sac) Complications None Condition Stable Disposition PACU [facility] Billing Surgery - Charge Forward: Surgery Billing (Repair multiple incisional hernias with 17 cm defect with mesh, bilateral transversus abdominis myofascial flap advancement, 7 cm on the right, 4 cm on the left)
[2025-03-02] MEDS: ONDANSETRON INJ 4 MG/2 ML VIAL IV PUSH (13:06)
--- NOTE | 2025-03-02 14:45 | ADMGEN ---
This patient, Gogo Dickens, was admitted to 3 [facility] Surg Room 319-01. Patient/family oriented to hospital policies and general routines including ID bracelet, bed and alarms, visiting hours, pain management, procedures, bathroom and other care routines, personal items, smoking policy, room service/diet, and visiting hours. Information on how to activate the Rapid Response Team has been discussed. Patient/Family are encouraged to report perceived risks to care and to ask questions if they do not understand what they are told or what they should do.
[2025-03-02] MEDS: LACTATED RINGERS 1,000 ML 100 ML IV CONT (15:01)
[2025-03-02] MEDS: MORPHINE SULFATE (*CRX) 4 MG/ML INJ IV PUSH (15:04)
[2025-03-02] MEDS: MORPHINE SULFATE (*CRX) 4 MG/ML INJ 2 MG IV PUSH (19:12)
[2025-03-02] MEDS: ENOXAPARIN 30 MG/0.3 ML SYRINGE SUB-Q (20:46)
[2025-03-02] MEDS: SENNA/DOCUSATE SODIUM TABLET 2 TAB PO (20:46)
[2025-03-03] VITALS (10 sets, daily range): BP systolic 99–129; BP diastolic 53–61; PULSE 86–105; RESP 14–18; TEMP 35.8–36.8; O2SAT 96–100
[2025-03-03] MEDS: IBUPROFEN IV 800 MG/200 ML 800 MG/200 ML BAG 400 MG IVPB ×2 (01:16→09:11)
[2025-03-03] MEDS: MORPHINE SULFATE (*CRX) 4 MG/ML INJ 2 MG IV PUSH (05:18)
[2025-03-03 05:58] LABS: Hematocrit 33.6 % (37.0-47.0); Hemoglobin 10.5 g/dL (12.0-15.0); Mean Corpuscular HGB Conc 31.3 g/dl (32-36); Mean Corpuscular Hemoglobin 28.5 pg (26-34); Mean Corpuscular Volume 91.3 fl (80-100); Platelet Count Result 214 k/mm3 (150-375); Red Blood Count 3.68 M/mm3 (4.2-5.4); White Blood Count 10.5 K/mm3 (4.5-10.0)
[2025-03-03 06:21] LABS: Anion Gap 3 mmol/L (4-12); Blood Urea Nitrogen 19 mg/dL (7-17); Calcium 8.4 mg/dL (8.4-10.2); Carbon Dioxide 30 mmol/L (22-30); Chloride 101 mmol/L (98-107); Estimated CRCL calculation 64 ml/min; Estimated Glomerular Filt Rate > 60; Glucose 135 mg/dL (65-110); Potassium 4.0 mmol/L (3.4-5.0); Sodium 134 mmol/L (137-145)
--- NOTE | 2025-03-03 08:20 | PM.PNGS ---
Progress Note: A&P Assessment and Plan (1) History of incisional hernia repair: Code(s): Z98.890 - Other specified postprocedural states; Z87.19 - Personal history of other diseases of the digestive system Status: Acute Assessment and Plan: Pain controlled. On oxygen this morning. Will get her up to walk in room and sit in chair. Advance to soft diet. Leave Hernandez catheter today with plans to removed tomorrow. (2) Ventral incisional hernia: Code(s): K43.2 - Incisional hernia without obstruction or gangrene Status: Chronic Assessment and Plan: No sign of recurrence, repair intact (3) Obesity, morbid, BMI 40.0-49.9: Code(s): E66.01 - Morbid (severe) obesity due to excess calories Status: Chronic Subjective Subjective Date/Time Seen: 03/03/25 08:20 Post Op day: 1 Patient reports: no new complaints, feels better, tolerating liquids well, no flatus, no bowel movement and afebrile Exam Const: General: comfortable, alert and awake Orientation/consciousness: patient oriented x3 GI: Inspection: incision (Dressing dry and intact, drains with serosanguineous fluid) and obesity GI Palp: Yes Soft to palpation and Yes Tenderness to palpation present (GI) Objective Data Vital Signs Vital Signs: Vital Signs - 24 hr 03/02/25 12:27 03/02/25 12:40 03/02/25 12:55 Temperature 36.4 C Pulse Rate 55 L 56 L 62 Respiratory Rate 10 L 10 L 12 Blood Pressure 99/46 L 97/46 L 114/55 L Pulse Oximetry 100 100 100 Oxygen Delivery Simple Face Mask Simple Face Mask Simple Face Mask Oxygen Flow Rate 6 6 6 03/02/25 13:10 03/02/25 13:25 03/02/25 13:40 Temperature Pulse Rate 63 61 67 Respiratory Rate 12 16 12 Blood Pressure 115/69 102/67 128/55 L Pulse Oximetry 95 95 99 Oxygen Delivery Room Air Room Air Nasal Cannula Oxygen Flow Rate 2 03/02/25 13:55 03/02/25 14:10 03/02/25 14:25 Temperature Pulse Rate 67 73 66 Respiratory Rate 12 12 12 Blood Pressure 130/65 124/71 129/73 Pulse Oximetry 100 99 99 Oxygen Delivery Nasal Cannula Nasal Cannula Nasal Cannula Oxygen Flow Rate 2 2 2 03/02/25 14:35 03/02/25 14:50 03/02/25 15:20 Temperature 36.0 C L 36.6 C 36.6 C Pulse Rate 84 74 86 Respiratory Rate 18 18 18 Blood Pressure 126/57 L 113/66 122/58 L Pulse Oximetry 97 100 100 Oxygen Delivery Oxygen Flow Rate 03/02/25 16:20 03/02/25 20:20 03/02/25 20:46 Temperature 36.4 C 36.7 C Pulse Rate 80 99 Respiratory Rate 18 17 Blood Pressure 125/60 123/70 Pulse Oximetry 100 100 Oxygen Delivery Room Air Oxygen Flow Rate 03/03/25 00:17 03/03/25 04:20 Temperature 36.6 C 36.6 C Pulse Rate 102 H 100 Respiratory Rate 14 16 Blood Pressure 124/55 L 129/58 L Pulse Oximetry 100 99 Oxygen Delivery Oxygen Flow Rate Intake/Output Intake/Output: Intake & Output 02/28/25 03/01/25 03/02/25 03/03/25 23:59 23:59 23:59 23:59 Intake Total 1440 Output Total 281 30 Balance 1159 -30 Meds/Results Medications: Active Medications Generic Name Dose Route Start Last Admin Trade Name Freq PRN Reason Stop Dose Admin Acetaminophen 500 mg 03/02/25 14:35 Acetaminophen 500 Mg Tablet PO Q6H PRN Pain Rated 1-3 Aspirin 81 mg 03/03/25 09:00 Aspirin 81 Mg Chewable Tablet PO DAILY [facility] Enoxaparin Sodium 40 mg 03/03/25 09:00 Enoxaparin 40 Mg/0.4 Ml Syringe SUB-Q DAILY [facility] Hydrochlorothiazide 12.5 mg 03/03/25 09:00 Hydrochlorothiazide 12.5 Mg Capsule PO DAILY [facility] Lactated Ringer's 1,000 mls @ 100 mls/hr 03/02/25 14:35 03/03/25 01:18 Lr - Lactated Ringers Iv IV CONT Not Given .Q10H [facility] Ibuprofen 800 mg in 200 mls @ 400 mls/hr 03/02/25 14:35 03/03/25 01:16 Caldolor 800 Mg/200 Ml IVPB 400 mls/hr Q6H PRN Administration Breakthrough Pain Rated 1-3 or NPO Lisinopril 20 mg 03/03/25 09:00 Lisinopril 20 Mg Tablet PO DAILY [facility] Morphine Sulfate 2 mg 03/02/25 14:49 03/03/25 05:18 Morphine Sulfate (*Crx) 4 Mg/Ml Inj IV PUSH 2 mg Q2H PRN Administration Breakthrough Pain Rated 4-6 or NPO Morphine Sulfate 4 mg 03/02/25 14:35 03/02/25 15:04 Morphine Sulfate (*Crx) 4 Mg/Ml Inj IV PUSH 4 mg Q2H PRN Administration Breakthrough Pain Rated 7-10 or NPO Multivitamins/Minerals 1 tablet 03/03/25 09:00 Multivits W-Fe,Min Chewable Tablet PO DAILY [facility] Naloxone HCl 0.1 mg 03/02/25 14:35 Naloxone Hcl 0.4 Mg/Ml Vial IV PUSH Q2M PRN Opiate Reversal Non-Formulary Medication 1 each 03/02/25 14:50 Nonformulary Nutritional Supplement XX 03/03/25 14:49 PRN PRN PROTOCOL Ondansetron HCl 4 mg 03/02/25 14:35 Ondansetron Inj 4 Mg/2 Ml Vial IV PUSH Q4H PRN Nausea And Vomiting Oxycodone/Acetaminophen 1 tablet 03/02/25 14:35 Oxycodone/Acetaminophen (*Crx) 5-325 Mg Tablet PO Q4H PRN Pain Rated 4-6 Oxycodone/Acetaminophen 1 tab 03/02/25 14:35 Oxycodone/Acetaminophen (*Crx) 10-325 Mg Tablet PO Q6H PRN Pain Rated 7-10 Pantoprazole Sodium 40 mg 03/03/25 09:00 Pantoprazole 40 Mg Tablet PO QAM [facility] Polyethylene Glycol 17 gm 03/03/25 09:00 Polyethylene Glycol 3350 17 Gm Powd.Pack PO QAM [facility] Rosuvastatin Calcium 10 mg 03/03/25 09:00 Rosuvastatin 10 Mg Tablet BY MOUTH DAILY [facility] Senna/Docusate Sodium 2 tab 03/02/25 21:00 03/02/25 20:46 Senna/Docusate Sodium Tablet PO 2 tab HS [facility] Administration Labs Labs: Laboratory Results - last 24 hr 03/03/25 05:46 WBC 10.5 H RBC 3.68 L Hgb 10.5 L Hct 33.6 L MCV 91.3 MCH 28.5 MCHC 31.3 L RDW 14.9 H Plt Count 214 MPV 10.3 Sodium 134 L Potassium 4.0 Chloride 101 Carbon Dioxide 30 Anion Gap 3 L BUN 19 H Creatinine 0.73 Estim Creat Clear Calc 64 Estimated GFR > 60 Glucose 135 H Calcium 8.4
[2025-03-03] MEDS: MULTIVITS W-FE,MIN CHEWABLE TABLET 1 TABLET PO (08:54)
[2025-03-03] MEDS: ROSUVASTATIN 10 MG TABLET BY MOUTH (08:54)
[2025-03-03] MEDS: ASPIRIN 81 MG CHEWABLE TABLET PO (08:55)
[2025-03-03] MEDS: PANTOPRAZOLE 40 MG TABLET PO (08:55)
[2025-03-03] MEDS: LACTATED RINGERS 1,000 ML 100 ML IV CONT ×2 (09:11→20:42)
[2025-03-03] MEDS: ENOXAPARIN 40 MG/0.4 ML SYRINGE SUB-Q (09:52)
[2025-03-03] MEDS: MORPHINE SULFATE (*CRX) 4 MG/ML INJ IV PUSH ×2 (09:54→15:57)
[2025-03-03] MEDS: ONDANSETRON INJ 4 MG/2 ML VIAL IV PUSH ×2 (09:54→15:58)
[2025-03-03] MEDS: SENNA/DOCUSATE SODIUM TABLET 2 TAB PO (20:41)
[2025-03-03] MEDS: oxyCODONE/ACETAMINOPHEN (*CRX) 5-325 MG TABLET 1 TABLET PO (20:41)
[2025-03-04] MEDS: oxyCODONE/ACETAMINOPHEN (*CRX) 5-325 MG TABLET 1 TABLET PO (03:41)
[2025-03-04] MEDS: ONDANSETRON INJ 4 MG/2 ML VIAL IV PUSH (03:53)
[2025-03-04 04:27] VITALS: BP 100/58; PULSE 104; RESP 16; TEMP 36.2; O2SAT 96
[2025-03-04 06:05] LABS: Hematocrit 28.6 % (37.0-47.0); Hemoglobin 9.0 g/dL (12.0-15.0); Mean Corpuscular HGB Conc 31.5 g/dl (32-36); Mean Corpuscular Hemoglobin 28.8 pg (26-34); Mean Corpuscular Volume 91.4 fl (80-100); Platelet Count Result 190 k/mm3 (150-375); Red Blood Count 3.13 M/mm3 (4.2-5.4); White Blood Count 10.3 K/mm3 (4.5-10.0)
[2025-03-04 06:11] VITALS: BP 108/58; PULSE 99; RESP 18; TEMP 36.7; O2SAT 94
--- NOTE | 2025-03-04 07:42 | PM.PNGS ---
Progress Note: A&P Assessment and Plan (1) History of incisional hernia repair: Code(s): Z98.890 - Other specified postprocedural states; Z87.19 - Personal history of other diseases of the digestive system Status: Acute Assessment and Plan: Still having quite a bit of postoperative pain and difficulty getting up out of bed. Will leave Hernandez catheter 1 more day. Continue IV fluids as blood pressure a little soft-about 100 systolic this morning. Labs look okay. Continue soft diet as she did not eat much yesterday. Advanced to regular as tolerated. (2) Ventral incisional hernia: Code(s): K43.2 - Incisional hernia without obstruction or gangrene Status: Chronic Assessment and Plan: No sign of recurrence, repair intact (3) Obesity, morbid, BMI 40.0-49.9: Code(s): E66.01 - Morbid (severe) obesity due to excess calories Status: Chronic Subjective Subjective Date/Time Seen: 03/04/25 07:42 Post Op day: 2 Patient reports: still having pain, no flatus, no bowel movement and afebrile Exam Const: General: comfortable, alert and awake Nutritional Appearance: obese Orientation/consciousness: patient oriented x3 GI: Inspection: non-distended, incision (Dry and healing well), obesity and other (Mostly bloody drainage in MILA drains) GI Palp: Yes Soft to palpation and Yes Tenderness to palpation present (GI) Objective Data Vital Signs Vital Signs: Vital Signs - 24 hr 03/03/25 08:20 03/03/25 09:30 03/03/25 11:30 Temperature 35.8 C L Pulse Rate 91 Respiratory Rate 18 Blood Pressure 126/61 Pulse Oximetry 97 97 100 Oxygen Delivery Nasal Cannula Nasal Cannula Oxygen Flow Rate 2 1 03/03/25 12:20 03/03/25 14:30 03/03/25 16:20 Temperature 35.9 C L 36.4 C Pulse Rate 86 99 Respiratory Rate 18 18 Blood Pressure 119/60 102/55 L Pulse Oximetry 100 98 97 Oxygen Delivery Room Air Oxygen Flow Rate 03/03/25 20:00 03/03/25 22:15 03/04/25 04:27 Temperature 36.8 C 36.2 C L Pulse Rate 99 105 H 104 H Respiratory Rate 18 18 16 Blood Pressure 99/53 L 100/58 L Pulse Oximetry 97 96 96 Oxygen Delivery Room Air Oxygen Flow Rate 03/04/25 06:11 Temperature 36.7 C Pulse Rate 99 Respiratory Rate 18 Blood Pressure 108/58 L Pulse Oximetry 94 Oxygen Delivery Oxygen Flow Rate Intake/Output Intake/Output: Intake & Output 03/01/25 03/02/25 03/03/25 03/04/25 23:59 23:59 23:59 23:59 Intake Total 1440 3120 Output Total 281 950 Balance 1159 2170 Meds/Results Medications: Active Medications Generic Name Dose Route Start Last Admin Trade Name Freq PRN Reason Stop Dose Admin Acetaminophen 500 mg 03/02/25 14:35 Acetaminophen 500 Mg Tablet PO Q6H PRN Pain Rated 1-3 Aspirin 81 mg 03/03/25 09:00 03/03/25 08:55 Aspirin 81 Mg Chewable Tablet PO 81 mg DAILY RL Administration Enoxaparin Sodium 40 mg 03/03/25 09:00 03/03/25 09:52 Enoxaparin 40 Mg/0.4 Ml Syringe SUB-Q 40 mg DAILY RL Administration Hydrochlorothiazide 12.5 mg 03/03/25 09:00 03/03/25 08:54 Hydrochlorothiazide 12.5 Mg Capsule PO 12.5 mg DAILY RL Administration Ibuprofen 800 mg in 200 mls @ 400 mls/hr 03/02/25 14:35 03/03/25 09:41 Caldolor 800 Mg/200 Ml IVPB Infused Q6H PRN Infusion Breakthrough Pain Rated 1-3 or NPO Lisinopril 20 mg 03/03/25 09:00 03/03/25 08:54 Lisinopril 20 Mg Tablet PO 20 mg DAILY RL Administration Morphine Sulfate 2 mg 03/02/25 14:49 03/03/25 05:18 Morphine Sulfate (*Crx) 4 Mg/Ml Inj IV PUSH 2 mg Q2H PRN Administration Breakthrough Pain Rated 4-6 or NPO Morphine Sulfate 4 mg 03/02/25 14:35 03/03/25 15:57 Morphine Sulfate (*Crx) 4 Mg/Ml Inj IV PUSH 4 mg Q2H PRN Administration Breakthrough Pain Rated 7-10 or NPO Multivitamins/Minerals 1 tablet 03/03/25 09:00 03/03/25 08:54 Multivits W-Fe,Min Chewable Tablet PO 1 tablet DAILY RL Administration Naloxone HCl 0.1 mg 03/02/25 14:35 Naloxone Hcl 0.4 Mg/Ml Vial IV PUSH Q2M PRN Opiate Reversal Ondansetron HCl 4 mg 03/02/25 14:35 03/04/25 03:53 Ondansetron Inj 4 Mg/2 Ml Vial IV PUSH 4 mg Q4H PRN Administration Nausea And Vomiting Oxycodone/Acetaminophen 1 tablet 03/02/25 14:35 03/04/25 03:41 Oxycodone/Acetaminophen (*Crx) 5-325 Mg Tablet PO 1 tablet Q4H PRN Administration Pain Rated 4-6 Oxycodone/Acetaminophen 1 tab 03/02/25 14:35 Oxycodone/Acetaminophen (*Crx) 10-325 Mg Tablet PO Q6H PRN Pain Rated 7-10 Pantoprazole Sodium 40 mg 03/03/25 09:00 03/03/25 08:55 Pantoprazole 40 Mg Tablet PO 40 mg QAM RL Administration Polyethylene Glycol 17 gm 03/03/25 09:00 03/03/25 08:54 Polyethylene Glycol 3350 17 Gm Powd.Pack PO 17 gm QAM RL Administration Rosuvastatin Calcium 10 mg 03/03/25 09:00 03/03/25 08:54 Rosuvastatin 10 Mg Tablet BY MOUTH 10 mg DAILY RL Administration Senna/Docusate Sodium 2 tab 03/02/25 21:00 03/03/25 20:41 Senna/Docusate Sodium Tablet PO 2 tab HS RL Administration Labs Labs: Laboratory Results - last 24 hr 03/04/25 05:37 WBC 10.3 H RBC 3.13 L Hgb 9.0 L Hct 28.6 L MCV 91.4 MCH 28.8 MCHC 31.5 L RDW 15.6 H Plt Count 190 MPV 10.5 H
[2025-03-04 07:51] LABS: Anion Gap 3 mmol/L (4-12); Blood Urea Nitrogen 18 mg/dL (7-17); Calcium 8.0 mg/dL (8.4-10.2); Carbon Dioxide 27 mmol/L (22-30); Chloride 100 mmol/L (98-107); Estimated CRCL calculation 49 ml/min; Estimated Glomerular Filt Rate 56; Glucose 119 mg/dL (65-110); Potassium 3.8 mmol/L (3.4-5.0); Sodium 130 mmol/L (137-145)
[2025-03-04] MEDS: ASPIRIN 81 MG CHEWABLE TABLET PO (08:54)
[2025-03-04] MEDS: PANTOPRAZOLE 40 MG TABLET PO (08:54)
[2025-03-04] MEDS: MULTIVITS W-FE,MIN CHEWABLE TABLET 1 TABLET PO (08:54)
[2025-03-04] MEDS: ROSUVASTATIN 10 MG TABLET BY MOUTH (08:54)
[2025-03-04] MEDS: ENOXAPARIN 40 MG/0.4 ML SYRINGE SUB-Q (08:54)
[2025-03-04] MEDS: KCL 20MEQ/0.9% SOD CHL 1,000 ML 80 ML IV CONT (12:22)
[2025-03-04 13:30] VITALS: O2SAT 100
[2025-03-04 13:33] VITALS: O2SAT 98
[2025-03-04 14:00] VITALS: BP 136/56; PULSE 100; RESP 18; TEMP 37.3; O2SAT 96
[2025-03-04] MEDS: oxyCODONE/ACETAMINOPHEN (*CRX) 10-325 MG TABLET 1 TAB PO (18:00)
[2025-03-04 20:44] VITALS: BP 114/52; PULSE 94; RESP 16; TEMP 36.9; O2SAT 92
[2025-03-04] MEDS: SENNA/DOCUSATE SODIUM TABLET 2 TAB PO (21:10)
[2025-03-05] MEDS: KCL 20MEQ/0.9% SOD CHL 1,000 ML 80 ML IV CONT (01:03)
[2025-03-05 06:00] VITALS: BP 129/54; PULSE 102; RESP 16; TEMP 36.2; O2SAT 90
[2025-03-05 06:13] LABS: Hematocrit 28.7 % (37.0-47.0); Hemoglobin 8.9 g/dL (12.0-15.0); Mean Corpuscular HGB Conc 31.0 g/dl (32-36); Mean Corpuscular Hemoglobin 28.5 pg (26-34); Mean Corpuscular Volume 92.0 fl (80-100); Platelet Count Result 179 k/mm3 (150-375); Red Blood Count 3.12 M/mm3 (4.2-5.4); White Blood Count 8.5 K/mm3 (4.5-10.0)
[2025-03-05 06:46] LABS: Anion Gap 3 mmol/L (4-12); Blood Urea Nitrogen 12 mg/dL (7-17); Calcium 7.9 mg/dL (8.4-10.2); Carbon Dioxide 28 mmol/L (22-30); Chloride 101 mmol/L (98-107); Estimated CRCL calculation 72 ml/min; Estimated Glomerular Filt Rate > 60; Glucose 103 mg/dL (65-110); Potassium 4.0 mmol/L (3.4-5.0); Sodium 132 mmol/L (137-145)
[2025-03-05] MEDS: PANTOPRAZOLE 40 MG TABLET PO (10:33)
[2025-03-05] MEDS: ASPIRIN 81 MG CHEWABLE TABLET PO (10:33)
[2025-03-05] MEDS: MULTIVITS W-FE,MIN CHEWABLE TABLET 1 TABLET PO (10:33)
[2025-03-05] MEDS: ENOXAPARIN 40 MG/0.4 ML SYRINGE SUB-Q (10:34)
[2025-03-05] MEDS: ROSUVASTATIN 10 MG TABLET BY MOUTH (10:34)
--- NOTE | 2025-03-05 11:04 | WPDPN ---
Progress Note: A&P Assessment and Plan (1) Incisional hernia: Code(s): K43.2 - Incisional hernia without obstruction or gangrene Status: Acute Assessment and Plan: Postop day 2 after open incisional hernia repair with mesh with bilateral component separation. She is doing pretty well. We will get her up out of bed and to chair twice today. Continue the abdominal wall drains for now. Will discontinue the Hernandez catheter. Use a pure wick if needed. Hep-Lock IV fluids continue regular diet. Maybe home in next 24 to 48 hours depending on how well she is mobilizing and her level of pain. Continue supportive management. Subjective Date/time seen: 03/05/25 11:04 Interval history: Postop day 2 after incisional hernia repair with mesh and bilateral abdominal component separation by Dr. Post. Drains are in place. Output is bloody serous. Expected postoperative pain which is slightly better today. Tolerating regular diet without any nausea vomiting. Getting up to the chair at the bedside. Hernandez catheter still in place. Think she can get up to the bedside commode so will try to get the catheter out today. Exam GI: Other: Abdomen soft obese. Bilateral MILA drains in place. Output is relatively low. Bloody serous. Midline incision dressed. Dressing is dry. Objective Data Vital Signs Vital Signs: Vital Signs - 24 hr 03/04/25 13:30 03/04/25 13:33 03/04/25 14:00 Temperature 37.3 C Pulse Rate 100 Respiratory Rate 18 Blood Pressure 136/56 L Pulse Oximetry 100 98 96 Oxygen Delivery Nasal Cannula Room Air Oxygen Flow Rate 2 03/04/25 20:10 03/04/25 20:44 03/05/25 06:00 Temperature 36.9 C 36.2 C L Pulse Rate 94 102 H Respiratory Rate 16 16 Blood Pressure 114/52 L 129/54 L Pulse Oximetry 92 90 Oxygen Delivery Room Air Oxygen Flow Rate Intake/Output Intake/Output: Intake & Output 03/02/25 03/03/25 03/04/25 03/05/25 23:59 23:59 23:59 23:59 Intake Total 1440 3120 730 1340 Output Total 741 808 1724 660 Balance 1159 2170 -1082 680 Meds/Results Medications: Active Medications Generic Name Dose Route Start Last Admin Trade Name Freq PRN Reason Stop Dose Admin Acetaminophen 500 mg 03/02/25 14:35 Acetaminophen 500 Mg Tablet PO Q6H PRN Pain Rated 1-3 Aspirin 81 mg 03/03/25 09:00 03/05/25 10:33 Aspirin 81 Mg Chewable Tablet PO 81 mg DAILY RL Administration Enoxaparin Sodium 40 mg 03/03/25 09:00 03/05/25 10:34 Enoxaparin 40 Mg/0.4 Ml Syringe SUB-Q 40 mg DAILY RL Administration Hydrochlorothiazide 12.5 mg 03/03/25 09:00 03/05/25 10:33 Hydrochlorothiazide 12.5 Mg Capsule PO 12.5 mg DAILY RL Administration Ibuprofen 800 mg in 200 mls @ 400 mls/hr 03/02/25 14:35 03/03/25 09:41 Caldolor 800 Mg/200 Ml IVPB Infused Q6H PRN Infusion Breakthrough Pain Rated 1-3 or NPO Potassium Chloride/Sodium Chloride 1,000 mls @ 80 mls/hr 03/04/25 08:00 03/05/25 01:03 Kcl 20 Meq/Ns IV CONT 80 mls/hr .[id number] RL Administration Lisinopril 20 mg 03/03/25 09:00 03/05/25 10:33 Lisinopril 20 Mg Tablet PO 20 mg DAILY RL Administration Morphine Sulfate 2 mg 03/02/25 14:49 03/03/25 05:18 Morphine Sulfate (*Crx) 4 Mg/Ml Inj IV PUSH 2 mg Q2H PRN Administration Breakthrough Pain Rated 4-6 or NPO Morphine Sulfate 4 mg 03/02/25 14:35 03/03/25 15:57 Morphine Sulfate (*Crx) 4 Mg/Ml Inj IV PUSH 4 mg Q2H PRN Administration Breakthrough Pain Rated 7-10 or NPO Multivitamins/Minerals 1 tablet 03/03/25 09:00 03/05/25 10:33 Multivits W-Fe,Min Chewable Tablet PO 1 tablet DAILY RL Administration Naloxone HCl 0.1 mg 03/02/25 14:35 Naloxone Hcl 0.4 Mg/Ml Vial IV PUSH Q2M PRN Opiate Reversal Ondansetron HCl 4 mg 03/02/25 14:35 03/04/25 03:53 Ondansetron Inj 4 Mg/2 Ml Vial IV PUSH 4 mg Q4H PRN Administration Nausea And Vomiting Oxycodone/Acetaminophen 1 tablet 03/02/25 14:35 03/04/25 03:41 Oxycodone/Acetaminophen (*Crx) 5-325 Mg Tablet PO 1 tablet Q4H PRN Administration Pain Rated 4-6 Oxycodone/Acetaminophen 1 tab 03/02/25 14:35 03/04/25 18:00 Oxycodone/Acetaminophen (*Crx) 10-325 Mg Tablet PO 1 tab Q6H PRN Administration Pain Rated 7-10 Pantoprazole Sodium 40 mg 03/03/25 09:00 03/05/25 10:33 Pantoprazole 40 Mg Tablet PO 40 mg QAM RL Administration Polyethylene Glycol 17 gm 03/03/25 09:00 03/05/25 10:33 Polyethylene Glycol 3350 17 Gm Powd.Pack PO 17 gm QAM RL Administration Rosuvastatin Calcium 10 mg 03/03/25 09:00 03/05/25 10:34 Rosuvastatin 10 Mg Tablet BY MOUTH 10 mg DAILY RL Administration Senna/Docusate Sodium 2 tab 03/02/25 21:00 03/04/25 21:10 Senna/Docusate Sodium Tablet PO 2 tab HS RL Administration Labs Labs: Laboratory Results - last 24 hr 03/04/25 03/05/25 20:51 05:56 WBC 8.5 RBC 3.12 L Hgb 8.9 L Hct 28.7 L MCV 92.0 MCH 28.5 MCHC 31.0 L RDW 15.1 H Plt Count 179 MPV 10.3 Sodium 132 L Potassium 4.0 Chloride 101 Carbon Dioxide 28 Anion Gap 3 L BUN 12 D Creatinine 0.64 L Estim Creat Clear Calc 72 Estimated GFR > 60 Glucose 103 POC Capillary Glucose 136 H Calcium 7.9 L
[2025-03-05] MEDS: oxyCODONE/ACETAMINOPHEN (*CRX) 10-325 MG TABLET 1 TAB PO (11:56)
[2025-03-05 14:00] VITALS: BP 135/53; PULSE 100; RESP 18; TEMP 36.4; O2SAT 100
[2025-03-05] MEDS: oxyCODONE/ACETAMINOPHEN (*CRX) 5-325 MG TABLET 1 TABLET PO (20:31)
[2025-03-05] MEDS: SENNA/DOCUSATE SODIUM TABLET 2 TAB PO (20:31)
[2025-03-05 21:00] VITALS: BP 115/53; PULSE 80; RESP 16; TEMP 36.6; O2SAT 97
[2025-03-06] MEDS: oxyCODONE/ACETAMINOPHEN (*CRX) 5-325 MG TABLET 1 TABLET PO (05:48)
[2025-03-06 05:53] VITALS: BP 110/45; PULSE 83; RESP 16; TEMP 36.4; O2SAT 95
[2025-03-06 06:52] LABS: Hematocrit 28.4 % (37.0-47.0); Hemoglobin 8.9 g/dL (12.0-15.0); Mean Corpuscular HGB Conc 31.3 g/dl (32-36); Mean Corpuscular Hemoglobin 29.0 pg (26-34); Mean Corpuscular Volume 92.5 fl (80-100); Platelet Count Result 183 k/mm3 (150-375); Red Blood Count 3.07 M/mm3 (4.2-5.4); White Blood Count 6.6 K/mm3 (4.5-10.0)
[2025-03-06 07:18] LABS: Anion Gap 3 mmol/L (4-12); Blood Urea Nitrogen 10 mg/dL (7-17); Calcium 8.0 mg/dL (8.4-10.2); Carbon Dioxide 31 mmol/L (22-30); Chloride 99 mmol/L (98-107); Estimated CRCL calculation 72 ml/min; Estimated Glomerular Filt Rate > 60; Glucose 108 mg/dL (65-110); Potassium 4.2 mmol/L (3.4-5.0); Sodium 133 mmol/L (137-145)
[2025-03-06] MEDS: MULTIVITS W-FE,MIN CHEWABLE TABLET 1 TABLET PO (08:45)
[2025-03-06] MEDS: ROSUVASTATIN 10 MG TABLET BY MOUTH (08:45)
[2025-03-06] MEDS: ENOXAPARIN 40 MG/0.4 ML SYRINGE SUB-Q (08:45)
[2025-03-06] MEDS: ASPIRIN 81 MG CHEWABLE TABLET PO (08:45)
[2025-03-06] MEDS: PANTOPRAZOLE 40 MG TABLET PO (08:46)
--- NOTE | 2025-03-06 12:35 | P.PN_ITS ---
Progress Note: A&P Assessment and Plan (1) Incisional hernia: Code(s): K43.2 - Incisional hernia without obstruction or gangrene Status: Acute Assessment and Plan: Improving. Continue oral pain medications today. Continue ambulating sitting up in chair and pulmonary toilet with incentive spirometry. Hopefully home tomorrow on oral antibiotics. May remove 1 of her drains before she goes home tomorrow. Subjective Date/time seen: 03/06/25 12:35 Interval history: Patient seems to be improving well. Less pain. Able to ambulate to the bathroom and sit up in chair much more. Pain is been managed with oral pain medications and without need for IV pain medications. Hemoglobin stable. No fever tachycardia. Exam GI: Other: Abdomen is soft and nondistended. MILA drains x2 in the abdominal wall with low output and mostly just bloody serous fluid. Drain sites are fine. Midline incision is healing without any redness or drainage. No seroma or hematoma note d midline incision. Objective Data Vital Signs Vital Signs: Vital Signs - 24 hr 03/05/25 14:00 03/05/25 20:00 03/05/25 21:00 Temperature 36.4 C 36.6 C Pulse Rate 100 80 Respiratory Rate 18 16 Blood Pressure 135/53 L 115/53 L Pulse Oximetry 100 97 Oxygen Delivery Room Air 03/06/25 05:53 03/06/25 08:00 Temperature 36.4 C Pulse Rate 83 Respiratory Rate 16 Blood Pressure 110/45 L Pulse Oximetry 95 Oxygen Delivery Room Air Intake/Output Intake/Output: Intake & Output 03/03/25 03/04/25 03/05/25 03/06/25 23:59 23:59 23:59 23:59 Intake Total 3120 730 2820 240 Output Total 950 1815 690 15 Balance 2170 -1085 2130 225 Meds/Results Medications: Active Medications Generic Name Dose Route Start Last Admin Trade Name Freq PRN Reason Stop Dose Admin Acetaminophen 500 mg 03/02/25 14:35 Acetaminophen 500 Mg Tablet PO Q6H PRN Pain Rated 1-3 Aspirin 81 mg 03/03/25 09:00 03/06/25 08:45 Aspirin 81 Mg Chewable Tablet PO 81 mg DAILY RL Administration Enoxaparin Sodium 40 mg 03/03/25 09:00 03/06/25 08:45 Enoxaparin 40 Mg/0.4 Ml Syringe SUB-Q 40 mg DAILY RL Administration Hydrochlorothiazide 12.5 mg 03/03/25 09:00 03/06/25 08:45 Hydrochlorothiazide 12.5 Mg Capsule PO 12.5 mg DAILY RL Administration Ibuprofen 800 mg in 200 mls @ 400 mls/hr 03/02/25 14:35 03/03/25 09:41 Caldolor 800 Mg/200 Ml IVPB Infused Q6H PRN Infusion Breakthrough Pain Rated 1-3 or NPO Lisinopril 20 mg 03/03/25 09:00 03/06/25 08:45 Lisinopril 20 Mg Tablet PO 20 mg DAILY RL Administration Morphine Sulfate 2 mg 03/02/25 14:49 03/03/25 05:18 Morphine Sulfate (*Crx) 4 Mg/Ml Inj IV PUSH 2 mg Q2H PRN Administration Breakthrough Pain Rated 4-6 or NPO Morphine Sulfate 4 mg 03/02/25 14:35 03/03/25 15:57 Morphine Sulfate (*Crx) 4 Mg/Ml Inj IV PUSH 4 mg Q2H PRN Administration Breakthrough Pain Rated 7-10 or NPO Multivitamins/Minerals 1 tablet 03/03/25 09:00 03/06/25 08:45 Multivits W-Fe,Min Chewable Tablet PO 1 tablet DAILY RL Administration Naloxone HCl 0.1 mg 03/02/25 14:35 Naloxone Hcl 0.4 Mg/Ml Vial IV PUSH Q2M PRN Opiate Reversal Ondansetron HCl 4 mg 03/02/25 14:35 03/04/25 03:53 Ondansetron Inj 4 Mg/2 Ml Vial IV PUSH 4 mg Q4H PRN Administration Nausea And Vomiting Oxycodone/Acetaminophen 1 tablet 03/02/25 14:35 03/06/25 05:48 Oxycodone/Acetaminophen (*Crx) 5-325 Mg Tablet PO 1 tablet Q4H PRN Administration Pain Rated 4-6 Oxycodone/Acetaminophen 1 tab 03/02/25 14:35 03/05/25 11:56 Oxycodone/Acetaminophen (*Crx) 10-325 Mg Tablet PO 1 tab Q6H PRN Administration Pain Rated 7-10 Pantoprazole Sodium 40 mg 03/03/25 09:00 03/06/25 08:46 Pantoprazole 40 Mg Tablet PO 40 mg QAM RL Administration Polyethylene Glycol 17 gm 03/03/25 09:00 03/06/25 08:45 Polyethylene Glycol 3350 17 Gm Powd.Pack PO 17 gm QAM RL Administration Rosuvastatin Calcium 10 mg 03/03/25 09:00 03/06/25 08:45 Rosuvastatin 10 Mg Tablet BY MOUTH 10 mg DAILY RL Administration Senna/Docusate Sodium 2 tab 03/02/25 21:00 03/05/25 20:31 Senna/Docusate Sodium Tablet PO 2 tab HS RL Administration Labs Labs: Laboratory Results - last 24 hr 03/06/25 06:37 WBC 6.6 RBC 3.07 L Hgb 8.9 L Hct 28.4 L MCV 92.5 MCH 29.0 MCHC 31.3 L RDW 15.0 H Plt Count 183 MPV 10.1 Sodium 133 L Potassium 4.2 Chloride 99 Carbon Dioxide 31 H Anion Gap 3 L BUN 10 Creatinine 0.64 L Estim Creat Clear Calc 72 Estimated GFR > 60 Glucose 108 Calcium 8.0 L
[2025-03-06 14:00] VITALS: BP 121/57; PULSE 94; RESP 18; TEMP 36.6; O2SAT 100
[2025-03-06] MEDS: oxyCODONE/ACETAMINOPHEN (*CRX) 10-325 MG TABLET 1 TAB PO ×2 (14:35→23:21)
[2025-03-06] MEDS: SENNA/DOCUSATE SODIUM TABLET 2 TAB PO (20:22)
[2025-03-06 21:00] VITALS: BP 106/44; PULSE 99; RESP 14; TEMP 36.8; O2SAT 100
[2025-03-07 06:00] VITALS: BP 118/48; PULSE 86; RESP 14; TEMP 36.3; O2SAT 98
[2025-03-07] MEDS: ASPIRIN 81 MG CHEWABLE TABLET PO (08:11)
[2025-03-07] MEDS: ENOXAPARIN 40 MG/0.4 ML SYRINGE SUB-Q (08:11)
[2025-03-07] MEDS: oxyCODONE/ACETAMINOPHEN (*CRX) 5-325 MG TABLET 1 TABLET PO ×2 (08:12→14:20)
[2025-03-07] MEDS: PANTOPRAZOLE 40 MG TABLET PO (08:14)
[2025-03-07] MEDS: ROSUVASTATIN 10 MG TABLET BY MOUTH (08:14)
[2025-03-07] MEDS: MULTIVITS W-FE,MIN CHEWABLE TABLET 1 TABLET PO (08:15)
[2025-03-07 14:00] VITALS: BP 144/57; PULSE 96; RESP 18; TEMP 36.3; O2SAT 94
--- NOTE | 2025-03-07 16:45 | PM.DS ---
DS: Admitting Diagnosis Discharge Date 03/07/2025 Admitting Diagnosis Incisional hernia DS: Discharge Diagnosis Discharge Diagnosis (1) Incisional hernia: Code(s): K43.2 - Incisional hernia without obstruction or gangrene Status: Acute DS: Summary Hospital Course Reason for hospitalization: Patient had a ruptured appendix in 2021, about 3 years ago. She had this converted to open surgery for removal. Since that time, she gained a lot of weight and developed a large mid abdominal incisional hernia. This was painful for her and she was seen in the office. CT scan showed 2 different incisional hernias. There was longitudinally an 8.8 cm layer of intact fascia but the overall length of the hernia was [address] scan. It is 8.1 cm in transverse dimension. She is taken to surgery at this time for open repair of multiple incisional hernias with mesh and bilateral posterior component separation. Hospital Course: Patient was admitted to the hospital on 03/02/2025 for a scheduled repair of multiple incisional hernias with 17 cm defect with mesh, bilateral transversus abdominis myofascial flap advancement, 7 cm on the right, 4 cm on the left. Patient was found have a large left-sided subcutaneous pocket holding chronically eviscerated bowel. Large hernia sac. Contracted left rectus muscle that was retracted laterally. Two 19 [place]is[place] Matthew drains were placed bilaterally in right-sided and left-sided abdomen. Patient was transferred to recovery in good condition. Patient was transferred to medical-surgical floor for further monitoring. Patient did require supplemental oxygen via nasal cannula. Senna docusate started. Postop day 1 patient reported no new complaints. She did have 192 mL from right MILA drain and 19 from left. She was feeling better and tolerating liquids well. Started on MiraLax. She was advanced to a soft diet. WBC slightly increased at some 10.5. The following day 03/04 patient was still having quite a bit of postoperative pain and difficulty getting out of bed. IV fluids were continued as blood pressure was a little soft in the morning. Right MILA with 140 mL and left with 10 mL. Did okay on soft diet and she was advanced as tolerated. On Monday 03/05 patient was doing well. She was able to get out of bed into chair twice. Hernandez catheter was removed. Significantly less output from right MILA drain with 10 mL. Increased output from left with 80 mL documented. The following day on 03/07, patient was doing well. No new complaints. Ambulating without assistance. Minimal output from MILA drains. Midline incision healing without any redness or drainage. Patient tolerating low-fiber diet. Voiding without difficulty. She reports she had a small bowel movement this morning. Right-sided MILA drain removed. Patient tolerated this well. Status at Discharge Functional status at discharge: independent ambulation Overall status at discharge: patient is progressing back to baseline Time Spent with Patient Time attestation: Total time spent providing and/or coordinating discharge services: Time spent: Greater than 30 minutes Exam Const: General: comfortable and no acute distress Eyes: General: appearance normal, both eyes and all related structures Neck: Neck: supple and no JVD Resp: Effort & Inspection: normal respiratory effort Cardio: Rate: regular rate GI: Inspection: non-distended GI Palp: Yes Soft to palpation, No Tenderness to palpation present (GI) and No Guarding due to palpation present (GI) Other: Both right and left MILA drains with minimal serosanguineous output. Right MILA drain removed. Drain site clean without any surrounding redness. Covered with gauze and Tegaderm. Midline incision appears to be healing well with no drainage, redness, purulence or any other signs of infection. Skin: General skin exam: normal color and no rashes or lesions noted Neuro: Sensory Exam: normal sensation Extrem: General: normal to inspection Psych: Mental Status: mental status grossly normal DS: Data Data Completed and Pending Completed studies during hospitalization: Pending at discharge 03/02/25 09:18 Surgical [PTH] Routine Procedures/Treatments: Procedures Operation Date: 03/02/25 07:30 Actual Procedure Side Surgeon p Repair Incisional Hernia with Mesh Posterior Component Separation Not Applicable Clifton Post MD Discharge Plan Discharge Attending physician on discharge: Romario Penaloza Discharging Clinician: Saray Solis Patient Disposition: Home Activity: no shower Diet: low fiber Wound Care Instructions: follow printed instructions Discharge Instructions: Call general surgery office at to schedule follow up appointment for drain removal. Call this same number with any additional questions you may have. Empty drain bulb daily or whenever full and record output. We would like to know total output at follow up appointment. You may remove the dressing from right sided drain site in 24 hours. No showering or soaking in a bath. May sponge bathe until drain is removed in the office. No lifting >10-15 pounds for the next 4-6 weeks until or until activity is advanced by your surgeon. If you develop any increased pain, nausea/vomiting, or increased redness, drainage, or pain to incision or drain sites please call our office or present to the Emergency department. Prescription pain medication will be sent to your pharmacy. Please pick this up and take as needed. You can take ibuprofen and tylenol for pain as needed. Resume all home medications. OK to eat a regular diet. Patient Instructions: Antibiotic Form Patient Language: [place] Stand Alone Forms: General Discharge Information Follow-up/Referrals: Saray Solis PA-C [Physician Agents' Records Clerk, General Surgery] - 1 Week Referral Note: Call to schedule. OK to see [facility] on Friday. Discharge Medications: New polyethylene glycol 3350 [Miralax] 17 gram/dose powder 17 g PO DAILY Qty: 238 0RF oxycodone-acetaminophen [Percocet] 5-325 mg tablet 1 tablet PO Q6H PRN (Reason: pain) Qty: 7 0RF sennosides-docusate sodium [Senokot-S] 8.6-50 mg Tablet 2 tab PO HS 14 Days Qty: 28 0RF Continued aspirin 81 mg tablet 81 mg PO DAILY biotin 10,000 mcg capsule 10,000 mcg PO DAILY Centrum Adult 50 Plus 80 mcg tablet,chewable 1 tablet PO DAILY acetaminophen [Pain Relief (acetaminophen)] 500 mg tablet 1,000 mg PO .PM PRN (Reason: pain) Rx Instructions: To help sleep omeprazole 20 mg capsule,delayed release(DR/EC) See Rx Instructions .ROUTE .COMPLEX Qty: 90 1RF Dose Instruction: TAKE 1 CAPSULE BY MOUTH EVERY DAY Rx Instructions: TAKE 1 CAPSULE BY MOUTH EVERY DAY rosuvastatin 10 mg tablet See Rx Instructions .ROUTE .COMPLEX Qty: 90 1RF Dose Instruction: TAKE 1 TABLET BY MOUTH EVERY DAY Rx Instructions: TAKE 1 TABLET BY MOUTH EVERY DAY lisinopril-hydrochlorothiazide 20-12.5 mg tablet See Rx Instructions .ROUTE .COMPLEX Qty: 90 1RF Dose Instruction: TAKE 1 TABLET BY MOUTH EVERY DAY Rx Instructions: TAKE 1 TABLET BY MOUTH EVERY DAY lisinopril 20 mg tablet 20 mg PO QAM Qty: 90 0RF Patient Comments: TAKES WITH LISINOPRIL 20/HCTZ 12.5 Rx Instructions: TAKE 1 TABLET BY MOUTH EVERY DAY Date of admission: 03/03/25 09:22 Primary Care Provider: Yelena Steele Admitting Provider: Clifton Post Attending physician on admission: Clifton Post Condition: Improved
== END 2025-03-07 17:10 | disposition home or self-care (01) ==
LOC: ANHSURGERY 09:30 → ANH3MEDSUR 03-07 14:48
PROVIDERS: Admitting Provider Surgery; PCP Nurse Practitioner Family; Visit Provider Surgery
PROC: 0WQF0ZZ Repair Abdominal Wall, Open Approach (ICD-10-PCS; CPT 49595; principal; 2025-03-02 07:30)
DX: K43.2 Incisional hernia without obstruction or gangrene (principal); I10 Essential (primary) hypertension; E66.01 Morbid (severe) obesity due to excess calories; Z68.41 Body mass index [BMI] 40.0-44.9, adult; Z79.82 Long term (current) use of aspirin; Z79.899 Other long term (current) drug therapy; M19.90 Unspecified osteoarthritis, unspecified site; R60.9 Edema, unspecified; Z86.73 Personal history of transient ischemic attack (TIA), and cerebral infarction without residual deficits; J45.909 Unspecified asthma, uncomplicated; M10.9 Gout, unspecified; K21.9 Gastro-esophageal reflux disease without esophagitis; E78.5 Hyperlipidemia, unspecified; E55.9 Vitamin D deficiency, unspecified; Z96.653 Presence of artificial knee joint, bilateral; Z90.89 Acquired absence of other organs; Z90.711 Acquired absence of uterus with remaining cervical stump; N32.81 Overactive bladder; Z87.448 Personal history of other diseases of urinary system; K57.90 Diverticulosis of intestine, part unspecified, without perforation or abscess without bleeding; Z86.79 Personal history of other diseases of the circulatory system; Z87.891 Personal history of nicotine dependence; Z80.0 Family history of malignant neoplasm of digestive organs; Z80.9 Family history of malignant neoplasm, unspecified
CPT/HCPCS: 49595; 15734 ×2; 36415; 80048; 82948; 85027; 88302; J0690; A9270; C1781; J1100; J1171; J1200; J1650; J1741; J1885; J2003; J2270; J2405; J2704; J3480; J7120

== ENCOUNTER 2025-04-05 12:24 | Outpatient (CLI) | payer MEDICARE, SELFPAY ==
--- NOTE | ~2025-04-05 | XR_ITS ---
XR knee RT 3V 04/05/2025 12:55 Indication: Right knee arthroplasty Procedure: 3 views right knee Comparison: 12/10/2024 Findings: There is anatomic alignment of the right knee. There is a right total knee arthroplasty. Prosthesis well seated. No underlying evidence of loosening or infection. No joint effusion. Impression: 1: No acute abnormality of the right knee. Reviewed, dictated and finalized at location [facility]. [facility] [employer]UCATION ADJ[employer]CT PROFESSOR Impression: 1: No acute abnormality of the right knee.
== END 2025-04-05 12:25 | disposition home or self-care (01) ==
PROVIDERS: PCP Nurse Practitioner Family; Visit Provider Physician Assistant Surgical
DX: Z96.651 Presence of right artificial knee joint (principal)
CPT/HCPCS: 73562